=== PATIENT | male | born 1980 | race Caucasian/White ===

== ENCOUNTER 2023-04-20 18:02 | Inpatient (IN) | payer MEDICARE, BC, OTHER ==
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
[2023-04-20] MEDS ORDERED: NALOXONE 0.4 MG/ML 1 ML VIAL IV PRN (21:21)
[2023-04-20] MEDS ORDERED: IBUPROFEN 400 MG TAB PO PRN (21:21)
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
[2023-04-20] MEDS: SODIUM CHLORIDE 0.9% 1,000 ML IV SCH (22:19)
[2023-04-20 23:03] LABS: T4, Free (Free Thyroxine) 0.96 ng/dL (0.78-2.19)
[2023-04-21 03:25] LABS: Appearance,Urine Clear (Clear); Bacteria,Urine Rare /hpf; Bilirubin,Urine Negative (Negative); Blood,Urine Large (Negative); Color,Urine Light Yellow; Glucose,Urine (UA) Negative (Negative); Ketones,Urine Negative (Negative); Leukocyte Esterase,Urine Small (Negative); Mucus,Urine Rare /hpf; Nitrite,Urine Negative (Negative); PH, Urine 7.5 (5.0-8.0); Protein,Urine 2+ (Negative); RBC,Urine >182 /hpf (0-5); Specific Gravity,Urine 1.014 (1.001-1.035); Urobilinogen,Urine <2.0 mg/dL (<2.0); WBC,Urine 28 /hpf (0-5)
[2023-04-21 07:01] LABS: Basophils % (A) 1 %; Eosinophils # (A) 0.2 k/uL (0-0.7); Eosinophils % (A) 3 %; HCT 41.2 % (39.0-53.0); Lymphocytes # (A) 1.8 k/uL (1.0-4.8); Lymphocytes % (A) 26 %; MCH 26.7 pg (25.0-35.0); MCHC 31.7 g/dL (31.0-37.0); MCV 84.3 fL (80.0-100.0); Mean Platelet Volume 7.5; Monocytes # (A) 0.3 k/uL (0-1.0); Monocytes % (A) 4 %; Neutrophils # (A) 4.4 k/uL (1.3-7.7); Neutrophils % (A) 64 %; Platelet Count 422 k/uL (150-450); RBC 4.88 m/uL (4.30-5.90); RDW 15.4 % (11.5-15.5); WBC 6.8 k/uL (3.8-10.6)
[2023-04-21 07:10] LABS: ALT 32 U/L (4-49); AST 21 U/L (17-59); African American GFR (CKD) >90 (>60 ml/min/1.73 sqM); Albumin 3.6 g/dL (3.5-5.0); Alkaline Phosphatase 133 U/L (38-126); Anion Gap 9 mmol/L; Blood Urea Nitrogen 18 mg/dL (9-20); Calcium 8.5 mg/dL (8.4-10.2); Carbon Dioxide 26 mmol/L (22-30); Chloride 105 mmol/L (98-107); Glucose 77 mg/dL (74-99); Magnesium 1.9 mg/dL (1.6-2.3); Non-African American GFR(CKD) >90 (>60 ml/min/1.73 sqM); Phosphorus 2.7 mg/dL (2.5-4.5); Sodium 140 mmol/L (137-145); Total Bilirubin 0.3 mg/dL (0.2-1.3); Total Protein 6.5 g/dL (6.3-8.2)
[2023-04-21] MEDS ORDERED: ALBUTEROL NEBULIZED 2.5 MG/3 ML INHALATION PRN (09:23)
[2023-04-21] MEDS ORDERED: bisacodyL 10 MG SUPP RECTAL PRN (09:23)
--- NOTE | 2023-04-21 10:06 | XR ---
EXAMINATION TYPE: XR chest 2V DATE OF EXAM: 04/21/2023 COMPARISON: 12/01/2021 INDICATION: Hypothermia TECHNIQUE: Frontal and lateral views of the chest are obtained. Lateral view has poor inspiration an d is essentially nondiagnostic. FINDINGS: The heart size is normal. The pulmonary vasculature is normal. The lungs are clear. BB may be in the soft tissues and lateral chest IMPRESSION: 1. No acute pulmonary process.
[2023-04-21] MEDS: OXcarbazepine 300MG/5ML SUSP 15,000 MG/250 ML BOTTLE PEG/G-TUBE SCH ×3 (10:21→21:06)
[2023-04-21] MEDS: ASPIRIN 81 MG PEG/G-TUBE SCH (10:21)
[2023-04-21] MEDS ORDERED: ZINC OXIDE PASTE (Z-GUARD) 1 APPLIC TOPICAL PRN (12:07)
[2023-04-21] MEDS ORDERED: [UNRECOGNIZED DRUG - OTHER] TOPICAL SCH (13:00)
[2023-04-21] MEDS: lamoTRIgine 100 MG TAB PEG/G-TUBE SCH ×2 (13:46→21:05)
[2023-04-21] MEDS: busPIRone HCl 10 MG TAB PEG/G-TUBE SCH ×2 (13:46→21:05)
[2023-04-21] MEDS: clonazePAM 0.5 MG TAB PEG/G-TUBE SCH (13:46)
[2023-04-21] MEDS: HEPARIN SODIUM,PORCINE 5,000 UNIT/ML 1 ML VIAL SQ SCH ×2 (13:50→21:05)
[2023-04-21] MEDS: SODIUM CHLORIDE 0.9% 1,000 ML IV SCH ×2 (13:51→23:25)
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
--- NOTE | 2023-04-21 15:44 | XR ---
EXAMINATION TYPE: XR KUB DATE OF EXAM: 04/21/2023 COMPARISON: None available INDICATION: Renal stones TECHNIQUE: Single view abdomen FINDINGS: There is a normal bowel gas pattern. Psoas margins are normal. No organomegaly is present. Bilateral ureteral stones are present. There is a 0.8 cm calcification next to the pigtail of the rig ht renal pelvic ureteral stent. Multiple calcifications overlying the left kidney measuring 1.2, 0.9, and 0.5 cm IMPRESSION: 1. Bilateral renal stones
[2023-04-21] MEDS ORDERED: NON FORMULARY DRUG (Liquacel 30 ML) PEG/G-TUBE SCH (17:00)
[2023-04-21] MEDS: TAMSULOSIN 0.4 MG CAP.ER.24H PO SCH (21:05)
[2023-04-21] MEDS: clonazePAM 1 MG TAB PO SCH (21:05)
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
[2023-04-22] MEDS: amLODIPine 10 MG TAB PEG/G-TUBE SCH (04:41)
[2023-04-22] MEDS: clonazePAM 1 MG TAB PO SCH ×2 (04:41→21:01)
[2023-04-22] MEDS: lamoTRIgine 100 MG TAB PEG/G-TUBE SCH ×3 (04:41→21:01)
[2023-04-22] MEDS: OXcarbazepine 300MG/5ML SUSP 15,000 MG/250 ML BOTTLE PEG/G-TUBE SCH ×3 (04:42→21:01)
[2023-04-22] MEDS: lamoTRIgine 25 MG TAB PEG/G-TUBE SCH (04:42)
[2023-04-22] MEDS ORDERED: NON FORMULARY DRUG (Cranberry Fruit [Cranberry] 465 MG Capsule) PEG/G-TUBE SCH (05:00)
[2023-04-22] MEDS: polyethylene glycoL 3350 17 GM POWD.PACK PO SCH (07:09)
[2023-04-22] MEDS: HEPARIN SODIUM,PORCINE 5,000 UNIT/ML 1 ML VIAL SQ SCH ×2 (07:09→21:01)
[2023-04-22] MEDS: ASPIRIN 81 MG PEG/G-TUBE SCH (07:09)
[2023-04-22 08:44] LABS: Basophils # (A) 0.05 X 10*3/uL (0.00-0.10); Basophils % (A) 0.6 %; Eosinophils # (A) 0.19 X 10*3/uL (0.04-0.35); Eosinophils % (A) 2.4 %; HCT 40.5 % (39.6-50.0); Lymphocytes # (A) 2.18 X 10*3/uL (0.90-5.00); Lymphocytes % (A) 27.8 %; MCH 26.9 pg (27.0-32.0); MCHC 32.1 g/dL (32.0-37.0); MCV 83.7 FL (80.0-97.0); Mean Platelet Volume 9.9 FL (9.5-12.2); Monocytes % (A) 6.4 %; NRBC Per 100 WBC 0 X 10*3/uL (0.00-0.01); Neutrophils # (A) 4.87 X 10*3/uL (1.80-7.70); Neutrophils % (A) 62.3 %; Platelet Count 433 X 10*3/uL (140-440); RBC 4.84 X 10*6/uL (4.40-5.60); RDW 15.5 % (11.5-14.5); WBC 7.83 X 10*3/uL (4.50-10.00)
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
[2023-04-22 11:01] LABS: Blood Urea Nitrogen 12.4 mg/dL (9.0-27.0); Calcium 8.9 mg/dL (8.7-10.3); Carbon Dioxide 24.7 mmol/L (21.6-31.8); Chloride 106 mmol/L (96-109); Glucose 78 mg/dL (70-110); Potassium 4.2 mmol/L (3.5-5.5); Sodium 141 mmol/L (135-145)
[2023-04-22] MEDS: busPIRone HCl 10 MG TAB PEG/G-TUBE SCH ×2 (12:51→21:01)
[2023-04-22] MEDS: clonazePAM 0.5 MG TAB PEG/G-TUBE SCH (12:51)
[2023-04-22] MEDS: METOPROLOL TARTRATE 12.5 MG TAB PO SCH ×2 (15:32→21:01)
[2023-04-22] MEDS: SODIUM CHLORIDE 0.9% 1,000 ML IV SCH (16:35)
[2023-04-22] MEDS: TAMSULOSIN 0.4 MG CAP.ER.24H PO SCH (21:01)
[2023-04-23] MEDS: clonazePAM 1 MG TAB PO SCH ×2 (04:27→22:18)
[2023-04-23] MEDS: amLODIPine 10 MG TAB PEG/G-TUBE SCH (04:27)
[2023-04-23] MEDS: lamoTRIgine 100 MG TAB PEG/G-TUBE SCH ×3 (04:27→22:19)
[2023-04-23] MEDS: lamoTRIgine 25 MG TAB PEG/G-TUBE SCH (04:27)
[2023-04-23] MEDS: OXcarbazepine 300MG/5ML SUSP 15,000 MG/250 ML BOTTLE PEG/G-TUBE SCH ×3 (04:29→22:19)
[2023-04-23] MEDS: polyethylene glycoL 3350 17 GM POWD.PACK PO SCH (08:37)
[2023-04-23] MEDS: HEPARIN SODIUM,PORCINE 5,000 UNIT/ML 1 ML VIAL SQ SCH ×2 (08:37→22:19)
[2023-04-23] MEDS: METOPROLOL TARTRATE 12.5 MG TAB PO SCH ×2 (08:37→22:18)
[2023-04-23] MEDS: ASPIRIN 81 MG PEG/G-TUBE SCH (08:37)
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
[2023-04-23 09:09] LABS: Blood Urea Nitrogen 9.5 mg/dL (9.0-27.0); Calcium 9.7 mg/dL (8.7-10.3); Carbon Dioxide 25.8 mmol/L (21.6-31.8); Chloride 106 mmol/L (96-109); Glucose 80 mg/dL (70-110); Potassium 4.5 mmol/L (3.5-5.5); Sodium 143 mmol/L (135-145)
[2023-04-23 09:24] LABS: Basophils # (A) 0.04 X 10*3/uL (0.00-0.10); Basophils % (A) 0.6 %; Eosinophils # (A) 0.32 X 10*3/uL (0.04-0.35); Eosinophils % (A) 4.6 %; HCT 44.1 % (39.6-50.0); Lymphocytes # (A) 1.76 X 10*3/uL (0.90-5.00); Lymphocytes % (A) 25.2 %; MCH 26.7 pg (27.0-32.0); MCHC 31.7 g/dL (32.0-37.0); Mean Platelet Volume 9.8 FL (9.5-12.2); Monocytes # (A) 0.52 X 10*3/uL (0.20-1.00); Monocytes % (A) 7.4 %; NRBC Per 100 WBC 0 X 10*3/uL (0.00-0.01); Neutrophils # (A) 4.32 X 10*3/uL (1.80-7.70); Neutrophils % (A) 61.9 %; Platelet Count 415 X 10*3/uL (140-440); RBC 5.25 X 10*6/uL (4.40-5.60); RDW 15.9 % (11.5-14.5); WBC 6.98 X 10*3/uL (4.50-10.00)
[2023-04-23] MEDS: clonazePAM 0.5 MG TAB PEG/G-TUBE SCH (12:56)
[2023-04-23] MEDS: busPIRone HCl 10 MG TAB PEG/G-TUBE SCH ×2 (12:56→22:18)
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
--- NOTE | 2023-04-23 13:49 | P.PN ---
Progress Note - Text Progress Note Date: 04/23/23 patient tenatively scheduled for a right ureteroscopy with laser lithotirpsy , thursday04/27/23
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
[2023-04-23] MEDS: TAMSULOSIN 0.4 MG CAP.ER.24H PO SCH (22:19)
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
[2023-04-24] MEDS: lamoTRIgine 100 MG TAB PEG/G-TUBE SCH ×3 (04:58→22:19)
[2023-04-24] MEDS: amLODIPine 10 MG TAB PEG/G-TUBE SCH (04:58)
[2023-04-24] MEDS: clonazePAM 1 MG TAB PO SCH ×2 (04:58→22:19)
[2023-04-24] MEDS: OXcarbazepine 300MG/5ML SUSP 15,000 MG/250 ML BOTTLE PEG/G-TUBE SCH ×3 (04:58→22:20)
[2023-04-24] MEDS: lamoTRIgine 25 MG TAB PEG/G-TUBE SCH (05:04)
[2023-04-24] MEDS: polyethylene glycoL 3350 17 GM POWD.PACK PO SCH (08:50)
[2023-04-24] MEDS: HEPARIN SODIUM,PORCINE 5,000 UNIT/ML 1 ML VIAL SQ SCH ×2 (08:50→22:19)
[2023-04-24] MEDS: METOPROLOL TARTRATE 12.5 MG TAB PO SCH ×2 (08:51→22:19)
[2023-04-24] MEDS: ASPIRIN 81 MG PEG/G-TUBE SCH (08:51)
[2023-04-24] MEDS: clonazePAM 0.5 MG TAB PEG/G-TUBE SCH (14:19)
[2023-04-24] MEDS: busPIRone HCl 10 MG TAB PEG/G-TUBE SCH ×2 (14:19→22:19)
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
[2023-04-24] MEDS: TAMSULOSIN 0.4 MG CAP.ER.24H PO SCH (22:18)
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
[2023-04-25] MEDS: amLODIPine 10 MG TAB PEG/G-TUBE SCH (05:20)
[2023-04-25] MEDS: lamoTRIgine 100 MG TAB PEG/G-TUBE SCH ×3 (05:20→21:41)
[2023-04-25] MEDS: lamoTRIgine 25 MG TAB PEG/G-TUBE SCH (05:20)
[2023-04-25] MEDS: clonazePAM 1 MG TAB PO SCH ×2 (05:20→21:41)
[2023-04-25] MEDS: OXcarbazepine 300MG/5ML SUSP 15,000 MG/250 ML BOTTLE PEG/G-TUBE SCH ×3 (05:21→21:41)
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
[2023-04-25] MEDS: ASPIRIN 81 MG PEG/G-TUBE SCH (08:41)
[2023-04-25] MEDS: METOPROLOL TARTRATE 12.5 MG TAB PO SCH ×2 (08:45→21:41)
[2023-04-25] MEDS: polyethylene glycoL 3350 17 GM POWD.PACK PO SCH (08:46)
[2023-04-25] MEDS: HEPARIN SODIUM,PORCINE 5,000 UNIT/ML 1 ML VIAL SQ SCH ×2 (08:47→21:42)
[2023-04-25] MEDS: clonazePAM 0.5 MG TAB PEG/G-TUBE SCH (13:18)
[2023-04-25] MEDS: busPIRone HCl 10 MG TAB PEG/G-TUBE SCH ×2 (13:19→21:41)
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
[2023-04-25] MEDS: TAMSULOSIN 0.4 MG CAP.ER.24H PO SCH (21:41)
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
[2023-04-26] MEDS: clonazePAM 1 MG TAB PO SCH ×2 (04:42→20:48)
[2023-04-26] MEDS: lamoTRIgine 25 MG TAB PEG/G-TUBE SCH (04:42)
[2023-04-26] MEDS: amLODIPine 10 MG TAB PEG/G-TUBE SCH (04:42)
[2023-04-26] MEDS: lamoTRIgine 100 MG TAB PEG/G-TUBE SCH ×3 (04:42→20:48)
[2023-04-26] MEDS: OXcarbazepine 300MG/5ML SUSP 15,000 MG/250 ML BOTTLE PEG/G-TUBE SCH ×3 (04:43→20:48)
[2023-04-26] MEDS ORDERED: HYDROmorphone 0.5 MG/0.5 ML SYRINGE IVP PRN (09:24)
[2023-04-26] MEDS ORDERED: ONDANSETRON 4 MG/2 ML VIAL IVP ONE (09:24)
[2023-04-26] MEDS ORDERED: DEXAMETHASONE SOD PHOSPHATE 4 MG/ML 1 ML VIAL IV ONE (09:24)
[2023-04-26] MEDS: polyethylene glycoL 3350 17 GM POWD.PACK PO SCH (10:05)
[2023-04-26] MEDS: METOPROLOL TARTRATE 12.5 MG TAB PO SCH ×2 (10:05→20:48)
[2023-04-26] MEDS: HEPARIN SODIUM,PORCINE 5,000 UNIT/ML 1 ML VIAL SQ SCH ×2 (10:05→20:48)
[2023-04-26] MEDS: ASPIRIN 81 MG PEG/G-TUBE SCH (10:05)
[2023-04-26] MEDS: LACTATED RINGERS 1,000 ML IV SCH (10:06)
--- NOTE | 2023-04-26 10:40 | P.PN ---
Subjective Progress Note Date: 04/26/23 The patient is in the hospital with hypothermia. This is resolved. He has bilateral ureteral catheters with stones placed at [facility] last month. He will undergo a right ureteroscopy, laser lithotripsy and removal of the right stent tomorrow. He may need a percutaneous nephrostolithotomy for the left. I will determine that and later date. Objective - Vital Signs Vital signs: Vital Signs Temp 97.7 F 04/26/23 07:00 Pulse 77 04/26/23 07:00 Resp 17 04/26/23 07:00 BP 114/77 04/26/23 07:00 Pulse Ox 96 04/26/23 07:00 FiO2 Intake & Output 04/25/23 04/26/23 04/26/23 18:59 06:59 18:59 Output Total 2 750 Balance -2 -750 Output: Urine 2 750 Other: Voiding Method Diaper - Labs CBC & Chem 7: 04/23/23 05:42 04/23/23 05:42 Labs: Microbiology - Last 24 Hours (Table) 04/22/23 14:22 Blood Culture - Preliminary Blood
[2023-04-26] MEDS: busPIRone HCl 10 MG TAB PEG/G-TUBE SCH ×2 (14:41→20:49)
[2023-04-26] MEDS: clonazePAM 0.5 MG TAB PEG/G-TUBE SCH (14:41)
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
[2023-04-26] MEDS: TAMSULOSIN 0.4 MG CAP.ER.24H PO SCH (20:48)
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
[2023-04-27] MEDS ORDERED: ERGOCALCIFEROL 1,250 MCG (50,000 IU) CAPSULE PEG/G-TUBE SCH (05:00)
[2023-04-27] MEDS: lamoTRIgine 100 MG TAB PEG/G-TUBE SCH ×3 (05:40→22:39)
[2023-04-27] MEDS: lamoTRIgine 25 MG TAB PEG/G-TUBE SCH (05:40)
[2023-04-27] MEDS: clonazePAM 1 MG TAB PO SCH ×2 (05:40→22:39)
[2023-04-27] MEDS: amLODIPine 10 MG TAB PEG/G-TUBE SCH (05:40)
[2023-04-27] MEDS: OXcarbazepine 300MG/5ML SUSP 15,000 MG/250 ML BOTTLE PEG/G-TUBE SCH ×3 (05:41→22:39)
[2023-04-27] MEDS: ASPIRIN 81 MG PEG/G-TUBE SCH (07:41)
[2023-04-27] MEDS: HEPARIN SODIUM,PORCINE 5,000 UNIT/ML 1 ML VIAL SQ SCH ×2 (07:42→22:40)
[2023-04-27] MEDS: METOPROLOL TARTRATE 12.5 MG TAB PO SCH ×2 (10:11→22:39)
[2023-04-27] MEDS: polyethylene glycoL 3350 17 GM POWD.PACK PO SCH (10:11)
[2023-04-27] MEDS ORDERED: IV FLUID CONTINUATION 1,000 ML IV ONE (11:31)
[2023-04-27] MEDS ORDERED: ONDANSETRON 4 MG/2 ML VIAL ONE (11:47)
[2023-04-27] MEDS ORDERED: DEXAMETHASONE SOD PHOSPHATE 4 MG/ML 1 ML VIAL IVP ONE (11:53)
[2023-04-27] MEDS ORDERED: ONDANSETRON 4 MG/2 ML VIAL IVP ONE (11:54)
[2023-04-27] MEDS ORDERED: NEOSTIGMINE 1 MG/ML 10 ML VIAL ONE (12:48)
[2023-04-27] MEDS ORDERED: LIDOCAINE 1% INJ 10MG/ML (20 ML MDV) ONE (12:48)
[2023-04-27] MEDS ORDERED: PHENYLEPHRINE 10 MG/ML VIAL ONE (12:48)
[2023-04-27] MEDS ORDERED: SUGAMMADEX SODIUM 200 MG/2 ML SDV IV ONE (12:48)
[2023-04-27] MEDS ORDERED: ROCURONIUM 10 MG/ML (5 ML VIAL) IV ONE (12:48)
[2023-04-27] MEDS ORDERED: fentaNYL (PF) 50 MCG/ML 2 ML AMP ONE (12:48)
[2023-04-27] MEDS ORDERED: GLYCOPYRROLATE 0.2 MG/ML 2 ML VIAL ONE (12:48)
[2023-04-27] MEDS ORDERED: PROPOFOL 10 MG/ML 20 ML VIAL IV ONE (12:48)
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
--- NOTE | 2023-04-27 14:14 | FL ---
EXAMINATION TYPE: FL guidance operating room DATE OF EXAM: 04/27/2023 Comparison: None Clinical History: 42-year-old male Cysto rt side kidney stone Findings: CYSTO RT SIDE KIDNEY STONE. FL 5 SEC. DAP 0.788 Gycm2. 3 images provided. Impression: Fluoroscopy for urology procedure as above.
[2023-04-27] MEDS ORDERED: LACTATED RINGERS 1,000 ML IV ONE (14:21)
[2023-04-27] MEDS: LACTATED RINGERS 1,000 ML IV SCH (15:06)
[2023-04-27] MEDS: busPIRone HCl 10 MG TAB PEG/G-TUBE SCH ×2 (15:06→22:39)
[2023-04-27] MEDS: clonazePAM 0.5 MG TAB PEG/G-TUBE SCH (15:07)
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
[2023-04-28] MEDS: TAMSULOSIN 0.4 MG CAP.ER.24H PO SCH (01:48)
[2023-04-28] MEDS: lamoTRIgine 100 MG TAB PEG/G-TUBE SCH ×2 (05:31→14:44)
[2023-04-28] MEDS: amLODIPine 10 MG TAB PEG/G-TUBE SCH (05:31)
[2023-04-28] MEDS: lamoTRIgine 25 MG TAB PEG/G-TUBE SCH (05:31)
[2023-04-28] MEDS: OXcarbazepine 300MG/5ML SUSP 15,000 MG/250 ML BOTTLE PEG/G-TUBE SCH ×2 (05:31→14:44)
[2023-04-28] MEDS: clonazePAM 1 MG TAB PO SCH (05:31)
[2023-04-28 08:16] VITALS: BMI 28.5
--- NOTE | 2023-04-28 09:08 | CT ---
EXAMINATION TYPE: CT abdomen pelvis wo con DATE OF EXAM: 04/28/2023 COMPARISON: 03/16/2014 HISTORY: 42-year-old male kidney stones CT DLP: 1395.3 mGycm. Automated exposure control for dose reduction was used. TECHNIQUE: Contiguous axial scanning of the abdomen and pelvis without IV contrast. Coronal and sagit juve reconstructions performed. FINDINGS: Heart normal size without pericardial effusion. Prominent bandlike areas of opacity at the left base, probably areas of atelectasis. Asymmetric elevation right hemidiaphragm remains. No pleural effusion . The right hepatic dome is excluded from view due to the elevated hemidiaphragm. If concern for diap hragmatic paralysis, a fluoroscopic sniff test could be performed. A PEG tube is present. Noncontrast appearance of the liver, gallbladder, adrenal glands, spleen, and pancreas within normal limits. Rounded soft tissue density within the medial aspect of the right kidney measuring up to 4.0 cm is in determinate and clear of this represents an underlying mass, proteinaceous/hemorrhagic cyst, or lobul ated renal parenchyma. Right kidney slightly malrotated. A couple nonobstructive calculi measure up t o 8 mm. There is right hydroureter with some dependent stones in the distal right ureter measuring up to 5 mm. A left ureteral stent is present with residual mild fullness of the renal collecting system. Nonobstr uctive left renal calculi are present. Approximately 4 stones are present, largest measuring up to 1. 3 cm. There is also a 4 mm stone along the distal left ureter adjacent to the stent. Prominent distention of the urinary bladder. Air within the bladder lumen likely relating to instrume ntation. Clinically correlate. Dependent calculi within the bladder lumen measuring 6 mm and 3 mm. Mild prostatomegaly of 5.0 cm wide. No dilated small bowel, free fluid, or free air. Scattered moderate stool burden. No pericolonic infl ammatory change. Normal appendix. No abnormal fluid collection in the pelvis or pelvic lymphadenopathy. Bones: Suspected old healed sacral decubitus ulcer overlying the right ischial tuberosity with chroni c soft tissue thickening and calcification. Bones: Suspect old healed fracture deformity left femoral neck. Lumbarized S1. Facet arthropathy lowe r lumbar spine. Mild disc bulge L5-S1. IMPRESSION: 1. Left ureteral stent in place. There is residual mild fullness of the left renal collecting system . A 4 mm stone is located within the distal left ureter adjacent to the stent. Additional left renal calculi measuring up to 1.3 cm. 2. Slightly malrotated right kidney. There is rounded fullness within the medial aspect of the right kidney measuring up to 4.0 cm. Unclear if this represents an underlying mass, proteinaceous/hemorrha gic cyst, or lobulated renal parenchyma. Recommend follow-up contrast-enhanced CT or MRI to exclude a n underlying mass when patient able. 3. Right renal calculi measuring up to 8 mm. There is right hydroureter with a small 5 mm stone in t he distal right ureter that does not appear to be obstructive as the ureter caliber is larger. 4. Air within the bladder lumen probably relating to instrumentation. Tiny bladder calculi measure u p to 6 mm. 5. Mild prostatomegaly of 5.0 cm wide.
[2023-04-28] MEDS: METOPROLOL TARTRATE 12.5 MG TAB PO SCH (10:35)
[2023-04-28] MEDS: polyethylene glycoL 3350 17 GM POWD.PACK PO SCH (10:35)
[2023-04-28] MEDS: ASPIRIN 81 MG PEG/G-TUBE SCH (10:36)
[2023-04-28] MEDS: HEPARIN SODIUM,PORCINE 5,000 UNIT/ML 1 ML VIAL SQ SCH (10:36)
[2023-04-28 10:49] LABS: Basophils # (A) 0.02 X 10*3/uL (0.00-0.10); Basophils % (A) 0.2 %; Eosinophils # (A) 0.04 X 10*3/uL (0.04-0.35); Eosinophils % (A) 0.4 %; HGB 13.4 g/dL (13.0-17.0); Lymphocytes # (A) 1.43 X 10*3/uL (0.90-5.00); MCH 26.7 pg (27.0-32.0); MCHC 31.2 g/dL (32.0-37.0); MCV 85.8 FL (80.0-97.0); Mean Platelet Volume 9.8 FL (9.5-12.2); Monocytes # (A) 0.45 X 10*3/uL (0.20-1.00); NRBC Per 100 WBC 0 X 10*3/uL (0.00-0.01); Neutrophils # (A) 6.96 X 10*3/uL (1.80-7.70); Neutrophils % (A) 77.8 %; Platelet Count 266 X 10*3/uL (140-440); RBC 5.01 X 10*6/uL (4.40-5.60); RDW 16.4 % (11.5-14.5); WBC 8.95 X 10*3/uL (4.50-10.00)
[2023-04-28 12:04] LABS: Blood Urea Nitrogen 19.2 mg/dL (9.0-27.0); Calcium 9.1 mg/dL (8.7-10.3); Carbon Dioxide 23.6 mmol/L (21.6-31.8); Chloride 102 mmol/L (96-109); Glucose 89 mg/dL (70-110); Magnesium 1.9 mg/dL (1.5-2.4); Potassium 4.9 mmol/L (3.5-5.5); Sodium 138 mmol/L (135-145)
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
[2023-04-28] MEDS: busPIRone HCl 10 MG TAB PEG/G-TUBE SCH (14:44)
[2023-04-28] MEDS: clonazePAM 0.5 MG TAB PEG/G-TUBE SCH (14:44)
[2023-04-28] MEDS: LACTATED RINGERS 1,000 ML IV SCH (14:48)
[2023-04-28 14:58] VITALS: BP 97/69; PULSE 61; RESP 14; TEMP 97.6
--- NOTE | 2023-04-28 16:11 | P.PN ---
Subjective Progress Note Date: 04/28/23 Principal diagnosis: Renal calculi Yung underwent right ureteral stent removal yesterday, along with ureteroscopic removal of right distal ureteral calculi. A CT scan was obtained, showing the left ureteral stent to be in place. There is a right renal calculus, as well as several left renal calculi measuring up to 13 mm in size. A 4 mm left distal ureteral calculus was also seen. Yung is comfortable at this time. Objective - Vital Signs Vital signs: Vital Signs Temp 97.6 F 04/28/23 13:30 Pulse 61 04/28/23 13:30 Resp 14 04/28/23 13:30 BP 97/69 04/28/23 13:30 Pulse Ox 97 04/28/23 13:30 FiO2 Intake & Output 04/27/23 04/28/23 04/28/23 18:59 06:59 18:59 Intake Total 800 Balance 800 Weight 95.254 kg Intake: IV 800 Other: Voiding Method External Catheter External Catheter # Voids 1 - Constitutional General appearance: Present: average body habitus, no acute distress - Labs CBC & Chem 7: 04/28/23 06:51 04/28/23 06:51 Labs: Abnormal Lab Results - Last 24 Hours (Table) 04/28/23 04/28/23 Range/Units 06:51 06:51 MCH 26.7 L (27.0-32.0) pg MCHC 31.2 L (32.0-37.0) g/dL RDW 16.4 H (11.5-14.5) % Immature Gran # 0.05 H (0.00-0.04) X 10*3/uL Anion Gap 12.40 H (4.00-12.00) mmol/L Microbiology - Last 24 Hours (Table) 04/22/23 14:22 Blood Culture - Final Blood - Imaging and Cardiology CT scan - abdomen: report reviewed, image reviewed Assessment and Plan (1) Renal calculus, left Current Visit: No Status: Acute Code(s): N20.0 - CALCULUS OF KIDNEY SNOMED Code(s): 46311458 Plan: Yung is to be discharged today. Dr. Flannery will make arrangements to perform outpatient ureteroscopic surgery to remove Yung' left ureteral and renal calculi.
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
== END 2023-04-28 17:55 | DRG 698 ==
LOC: EEVIPCON 18:02 → EC 18:02 → 4SSUR 21:23 → OBSVTOIN 04-21 12:43
PROVIDERS: ADMIT Hospitalist; ATTEND Hospitalist
PROC: 0TC68ZZ Extirpation of Matter from Right Ureter, Via Natural or Artificial Opening Endoscopic (ICD-10-PCS; principal; 2023-04-27 12:30)
PROC: 0TP98DZ Removal of Intraluminal Device from Ureter, Via Natural or Artificial Opening Endoscopic (ICD-10-PCS; principal; 2023-04-27 12:30)
DX: T83.511A Infection and inflammatory reaction due to indwelling urethral catheter, initial encounter (principal); A41.89 Other specified sepsis; Z43.1 Encounter for attention to gastrostomy; G81.91 Hemiplegia, unspecified affecting right dominant side; N18.4 Chronic kidney disease, stage 4 (severe); N13.6 Pyonephrosis; N39.0 Urinary tract infection, site not specified; I13.10 Hypertensive heart and chronic kidney disease without heart failure, with stage 1 through stage 4 chronic kidney disease, or unspecified chronic kidney disease; G40.909 Epilepsy, unspecified, not intractable, without status epilepticus; I48.91 Unspecified atrial fibrillation; Z66 Do not resuscitate; Z28.310 Unvaccinated for COVID-19; F32.A Depression, unspecified; F41.9 Anxiety disorder, unspecified; K21.9 Gastro-esophageal reflux disease without esophagitis; K59.00 Constipation, unspecified; I25.10 Atherosclerotic heart disease of native coronary artery without angina pectoris; R68.0 Hypothermia, not associated with low environmental temperature; Z79.82 Long term (current) use of aspirin; Z79.899 Other long term (current) drug therapy; Z87.01 Personal history of pneumonia (recurrent); Z87.442 Personal history of urinary calculi; Z87.820 Personal history of traumatic brain injury; Z98.2 Presence of cerebrospinal fluid drainage device; Z88.6 Allergy status to analgesic agent; Z88.8 Allergy status to other drugs, medicaments and biological substances; Y84.6 Urinary catheterization as the cause of abnormal reaction of the patient, or of later complication, without mention of misadventure at the time of the procedure; Y92.129 Unspecified place in nursing home as the place of occurrence of the external cause
CPT/HCPCS: 51702; 70450; 71046; 74018; 74176; 80048; 80053; 81001; 82365; 83735; 84100; 84439; 84443; 84481; 85025; 87040; 99285

== ENCOUNTER 2023-05-06 07:00 | Day surgery (SDC) | payer MEDICARE, BC, OTHER ==
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
[~2023-05-06 07:00] MED LIST: AMPICILLIN 1,000 MG in SODIUM CHLORIDE 0.9% 50 ML IVPB PRN; DEXAMETHASONE SOD PHOSPHATE 4 MG/ML 1 ML VIAL IV ONE; GENTAMICIN 120 MG in SODIUM CHLORIDE 0.9% 100 ML IVPB PRN; HYDROmorphone 0.5 MG/0.5 ML SYRINGE IVP PRN; LACTATED RINGERS 1,000 ML IV SCH; ONDANSETRON 4 MG/2 ML VIAL IVP ONE
--- NOTE | 2023-05-06 09:46 | XR ---
EXAMINATION TYPE: XR KUB DATE OF EXAM: 05/06/2023 Comparison: 04/21/2023 Clinical History: 42-year-old male KIDNEY STONES Findings: Left ureteral stent. De La Vega catheter. Right ureteral stent removed in the interval. Right-sided [employer] liban nt catheter noted. PEG tube present. A couple calcifications left mid abdomen measuring up to 5 mm de creased in size from 1.1 cm, previously. Suspect a small 5 mm calcification right mid abdomen as well . Scattered moderate stool in the right side of the abdomen. Nonobstructive bowel gas pattern. Calcif ications below the right ischial tuberosity suggesting chronic hamstrings origin tendinopathy. Possib le old healed fracture deformity subtrochanteric proximal right femur. Impression: 1. Left ureteral stent. Left-sided renal calculi are smaller measuring up to 5 mm now versus 1.1 cm, previously. 2. Right ureteral stent removed. There may be a 5 mm right renal calculus present. 3. De La Vega catheter.
[2023-05-06] MEDS ORDERED: PROPOFOL 10 MG/ML 20 ML VIAL IV ONE (10:11)
[2023-05-06] MEDS ORDERED: ROCURONIUM 10 MG/ML (5 ML VIAL) IV ONE (10:11)
[2023-05-06] MEDS ORDERED: GLYCOPYRROLATE 0.2 MG/ML 2 ML VIAL ONE (10:11)
[2023-05-06] MEDS ORDERED: LIDOCAINE 1% INJ 10MG/ML (20 ML MDV) ONE (10:11)
[2023-05-06] MEDS ORDERED: PHENYLEPHRINE-0.9% NACL SYG 1,000 MCG/10 ML SYRINGE ONE (10:11)
[2023-05-06] MEDS ORDERED: NEOSTIGMINE 1 MG/ML 10 ML VIAL ONE (10:11)
--- NOTE | 2023-05-06 11:47 | P.OP ---
Date of Procedure: 05/06/23 Preoperative Diagnosis: Left renal stones renal stones, status post stent placement for urinary tract infection with sepsis, Postoperative Diagnosis: Same Procedure(s) Performed: Cystoscopy, left ureteroscopy with laser lithotripsy and stone basketing removal double-J catheter left Anesthesia: SHANTIA Surgeon: Will Flannery Estimated Blood Loss (ml): 0 Pathology: other (Stone) Condition: stable Disposition: PACU Indications for Procedure: Patient is 42. He is status post placement of bilateral double-J catheters for obstructing stones at [facility] in March. I recently did right ureteroscopy with laser lithotripsy and stent removal for the right side. He now comes for removal of stones on the left Description of Procedure: Patient brought to the operative suite. Given a general anesthetic. Placed lithotomy position with sterile prep and drape. Cystoscopy Foroblique lens and 21-St Lucian sheath identifies a normal urethra. The prostate is not obstructing. The double-J catheter in the left is identified and pulled to the urethral meatus. An 035 wires passed through the stent up into the kidney. Over the wires and passed [id number] reentry sheath. I then pass a flexible ureteroscope up into the kidney. He has 2 stones in the upper pole calyx and one in the lower pole calyx. 272 laser probe the stone fragments are broken into tiny pieces either to be passed or basketed. I basket the larger fragments and 7 and pathology. At the end of the procedure there no remaining significant fragments left in the kidney. I do a pullout ureteroscopy to make sure that no stones in the ureter and there are none. Scopes are removed. I introduced a 16-St Lucian De La Vega catheter into the bladder with clear urine return. The patient is awakened and returned recovery room good condition. He tolerated the procedure well be returned in the care home this afternoon and found the office in one week.
--- NOTE | 2023-05-06 11:52 | FL ---
EXAMINATION TYPE: FL guidance operating room Intraoperative/procedural fluoroscopic services were pro vided. Total fluoroscopy time is 10.2 seconds with a total of 3 submitted images to PACS. Please see the operative/procedural note for further details. DAP: 2.8231 Gycm2
[2023-05-06 12:02] VITALS: TEMP 96.8
[2023-05-06 13:17] VITALS: BP 110/73; PULSE 97; RESP 16
== END 2023-05-06 13:48 ==
LOC: OR 07:00
PROVIDERS: ATTEND Urology
DX: N20.0 Calculus of kidney (principal); Z96.0 Presence of urogenital implants; Z87.440 Personal history of urinary (tract) infections; Z86.19 Personal history of other infectious and parasitic diseases; G40.909 Epilepsy, unspecified, not intractable, without status epilepticus; K21.9 Gastro-esophageal reflux disease without esophagitis; I12.9 Hypertensive chronic kidney disease with stage 1 through stage 4 chronic kidney disease, or unspecified chronic kidney disease; N18.4 Chronic kidney disease, stage 4 (severe); Z98.2 Presence of cerebrospinal fluid drainage device; D64.9 Anemia, unspecified; Z87.820 Personal history of traumatic brain injury; Z79.82 Long term (current) use of aspirin; Z79.899 Other long term (current) drug therapy; Z88.8 Allergy status to other drugs, medicaments and biological substances; Z88.6 Allergy status to analgesic agent
CPT/HCPCS: 82365; 74018; 52353; C1769; J1100; J2710; J2405; J2001; J1580; J0290; J2704; J2371

== ENCOUNTER 2023-06-04 14:24 | Inpatient (IN) | payer MEDICARE, BC ==
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
[2023-06-04] MEDS ORDERED: NALOXONE 0.4 MG/ML 1 ML VIAL IV PRN (16:51)
[2023-06-04] MEDS: SODIUM CHLORIDE 0.9% 1,000 ML IV SCH (17:21)
[2023-06-04 17:45] LABS: Anisocytosis Slight; Basophils # (A) 0.1 k/uL (0-0.2); Basophils % (A) 1 %; Eosinophils # (A) 0.3 k/uL (0-0.7); Eosinophils % (A) 4 %; HCT 41.5 % (39.0-53.0); HGB 13.2 gm/dL (13.0-17.5); Hypochromasia Slight; Lymphocytes % (A) 24 %; MCH 26.9 pg (25.0-35.0); MCHC 31.8 g/dL (31.0-37.0); MCV 84.6 fL (80.0-100.0); Mean Platelet Volume 7.2; Monocytes # (A) 0.3 k/uL (0-1.0); Monocytes % (A) 4 %; Neutrophils # (A) 5.6 k/uL (1.3-7.7); Neutrophils % (A) 67 %; Platelet Count 280 k/uL (150-450); RBC 4.91 m/uL (4.30-5.90); RDW 16.4 % (11.5-15.5); WBC 8.4 k/uL (3.8-10.6)
[2023-06-04 18:04] LABS: ALT 23 U/L (4-49); AST 25 U/L (17-59); African American GFR (CKD) >90 (>60 ml/min/1.73 sqM); Albumin 3.6 g/dL (3.5-5.0); Alkaline Phosphatase 126 U/L (38-126); Anion Gap 2 mmol/L; Blood Urea Nitrogen 15 mg/dL (9-20); Calcium 9.3 mg/dL (8.4-10.2); Carbon Dioxide 32 mmol/L (22-30); Chloride 107 mmol/L (98-107); Glucose 79 mg/dL (74-99); Non-African American GFR(CKD) 81 (>60 ml/min/1.73 sqM); Potassium 4.9 mmol/L (3.5-5.1); Sodium 141 mmol/L (137-145); Total Bilirubin 0.4 mg/dL (0.2-1.3); Total Protein 6.6 g/dL (6.3-8.2)
--- NOTE | 2023-06-04 18:36 | XR ---
EXAMINATION TYPE: XR KUB DATE OF EXAM: 06/04/2023 5:45 PM CLINICAL HISTORY: PEG tube placement; patient injected with 50 mL Isovue-370 TECHNIQUE: Single supine KUB image of the abdomen is obtained. COMPARISON: None. FINDINGS/IMPRESSION: A catheter overlying the left upper quadrant is seen with tip superimposed over the left T12 rib. Radiographic contrast opacifies the ascending colon. No other radiographic contrast is seen on the im ages. Vertically oriented catheter is seen over the right upper and lower quadrants. Scattered gas is seen in non-distended small bowel loops. Gas and fecal material is seen in non-diste nded colon. Limitation of the study: Supine radiography cannot exclude pneumoperitoneum.
[2023-06-05] MEDS ORDERED: bisacodyL 10 MG SUPP RECTAL PRN (00:47)
[2023-06-05] MEDS ORDERED: ALBUTEROL NEBULIZED 2.5 MG/3 ML INHALATION PRN (00:47)
[2023-06-05] MEDS: lamoTRIgine 25 MG TAB PEG/G-TUBE SCH (05:50)
[2023-06-05] MEDS: TAMSULOSIN 0.4 MG CAP.ER.24H PO SCH (05:50)
[2023-06-05] MEDS: clonazePAM 1 MG TAB PEG/G-TUBE SCH (05:50)
[2023-06-05] MEDS: OXcarbazepine 300MG/5ML SUSP 15,000 MG/250 ML BOTTLE PEG/G-TUBE SCH (05:50)
[2023-06-05] MEDS: amLODIPine 10 MG TAB PEG/G-TUBE SCH (05:50)
[2023-06-05] MEDS: lamoTRIgine 100 MG TAB PEG/G-TUBE SCH (05:50)
[2023-06-05] MEDS ORDERED: NON FORMULARY DRUG (Cranberry Fruit [Cranberry] 465 MG Capsule) PEG/G-TUBE SCH (08:00)
[2023-06-05 08:35] LABS: Basophils # (A) 0.05 X 10*3/uL (0.00-0.10); Basophils % (A) 0.6 %; Eosinophils % (A) 2.6 %; HCT 42.7 % (39.6-50.0); HGB 13.5 g/dL (13.0-17.0); Lymphocytes % (A) 20.5 %; MCH 26.1 pg (27.0-32.0); MCHC 31.6 g/dL (32.0-37.0); MCV 82.4 FL (80.0-97.0); Mean Platelet Volume 9.6 FL (9.5-12.2); Monocytes # (A) 0.46 X 10*3/uL (0.20-1.00); Monocytes % (A) 5.9 %; NRBC Per 100 WBC 0 X 10*3/uL (0.00-0.01); Neutrophils # (A) 5.44 X 10*3/uL (1.80-7.70); Neutrophils % (A) 69.9 %; Platelet Count 342 X 10*3/uL (140-440); RBC 5.18 X 10*6/uL (4.40-5.60); RDW 16.8 % (11.5-14.5); WBC 7.79 X 10*3/uL (4.50-10.00)
[2023-06-05] MEDS: polyethylene glycoL 3350 17 GM POWD.PACK PEG/G-TUBE SCH (10:37)
[2023-06-05] MEDS: METOPROLOL TARTRATE 12.5 MG TAB PEG/G-TUBE SCH (10:38)
[2023-06-05 11:10] LABS: BUN/Creat Ratio 10.23 Ratio (12.00-20.00); Blood Urea Nitrogen 13.3 mg/dL (9.0-27.0); Calcium 9.8 mg/dL (8.7-10.3); Carbon Dioxide 28.3 mmol/L (21.6-31.8); Chloride 102 mmol/L (96-109); Glucose 80 mg/dL (70-110); Potassium 5.2 mmol/L (3.5-5.5); Sodium 141 mmol/L (135-145)
[2023-06-05] MEDS: busPIRone HCl 10 MG TAB PEG/G-TUBE SCH (13:44)
[2023-06-05] MEDS: clonazePAM 0.5 MG TAB PEG/G-TUBE SCH (13:44)
[2023-06-05] MEDS ORDERED: ZINC OXIDE PASTE (Z-GUARD) 1 APPLIC TOPICAL PRN (14:03)
[2023-06-05] MEDS: HEPARIN SODIUM,PORCINE 5,000 UNIT/ML 1 ML VIAL SQ SCH (15:35)
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
[2023-06-06] MEDS: SODIUM CHLORIDE 0.9% 1,000 ML IV SCH (01:05)
[2023-06-06 07:04] LABS: Appearance,Urine Cloudy (Clear); Bilirubin,Urine Negative (Negative); Blood,Urine Negative (Negative); Color,Urine Colorless; Glucose,Urine (UA) Negative (Negative); Ketones,Urine Negative (Negative); Leukocyte Esterase,Urine Large (Negative); Mucus,Urine Rare /hpf; Nitrite,Urine Negative (Negative); PH, Urine 6.5 (5.0-8.0); Protein,Urine Negative (Negative); RBC,Urine 7 /hpf (0-5); Specific Gravity,Urine 1.013 (1.001-1.035); Squamous Epithelial Cell,Urine <1 /hpf (0-4); Urobilinogen,Urine <2.0 mg/dL (<2.0); WBC,Urine 69 /hpf (0-5)
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
[2023-06-06 15:58] LABS: Lamotrigine (Lamictal) 6.9 ug/mL (2.0-15.0)
[2023-06-07 10:11] LABS: Anisocytosis Slight; HCT 39.8 % (39.0-53.0); HGB 12.9 gm/dL (13.0-17.5); Hypochromasia Slight; MCH 27.1 pg (25.0-35.0); MCHC 32.3 g/dL (31.0-37.0); MCV 83.9 fL (80.0-100.0); Mean Platelet Volume 7.2; Platelet Count 197 k/uL (150-450); RBC 4.75 m/uL (4.30-5.90); RDW 16.2 % (11.5-15.5); WBC 7.2 k/uL (3.8-10.6)
[2023-06-07 10:50] LABS: ALT 22 U/L (4-49); AST 26 U/L (17-59); African American GFR (CKD) >90 (>60 ml/min/1.73 sqM); Albumin 3.4 g/dL (3.5-5.0); Albumin/Globulin Ratio 1.1; Alkaline Phosphatase 119 U/L (38-126); Anion Gap 3 mmol/L; Blood Urea Nitrogen 9 mg/dL (9-20); Calcium 8.8 mg/dL (8.4-10.2); Carbon Dioxide 28 mmol/L (22-30); Chloride 106 mmol/L (98-107); Glucose 86 mg/dL (74-99); Non-African American GFR(CKD) >90 (>60 ml/min/1.73 sqM); Potassium 4.2 mmol/L (3.5-5.1); Sodium 137 mmol/L (137-145); Total Bilirubin 0.3 mg/dL (0.2-1.3); Total Protein 6.4 g/dL (6.3-8.2)
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
[2023-06-07 22:47] LABS: Appearance,Urine Cloudy (Clear); Bacteria,Urine Rare /hpf; Bilirubin,Urine Negative (Negative); Blood,Urine Negative (Negative); Budding Yeast,Urine Rare /hpf; Color,Urine Yellow; Glucose,Urine (UA) Negative (Negative); Hyaline Casts,Urine 1 /lpf (0-2); Ketones,Urine Negative (Negative); Leukocyte Esterase,Urine Large (Negative); Mucus,Urine Rare /hpf; Nitrite,Urine Negative (Negative); Protein,Urine Trace (Negative); RBC,Urine 8 /hpf (0-5); Specific Gravity,Urine 1.016 (1.001-1.035); Urobilinogen,Urine <2.0 mg/dL (<2.0); WBC,Urine 160 /hpf (0-5)
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
[2023-06-08] MEDS: PIPERACILLIN-TAZOBACTAM 3.375 GM in SODIUM CHLORIDE 0.9% 100 ML IVPB SCH (13:24)
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
[2023-06-08 15:55] LABS: Basophils # (A) 0.04 X 10*3/uL (0.00-0.10); Basophils % (A) 0.4 %; Eosinophils # (A) 0.28 X 10*3/uL (0.04-0.35); Eosinophils % (A) 3.1 %; HCT 41.5 % (39.6-50.0); HGB 13.2 g/dL (13.0-17.0); Lymphocytes % (A) 23.1 %; MCH 27.1 pg (27.0-32.0); MCHC 31.8 g/dL (32.0-37.0); MCV 85.2 FL (80.0-97.0); Mean Platelet Volume 10.3 FL (9.5-12.2); Monocytes % (A) 5.5 %; NRBC Per 100 WBC 0 X 10*3/uL (0.00-0.01); Neutrophils # (A) 6.14 X 10*3/uL (1.80-7.70); Neutrophils % (A) 67.4 %; Platelet Count 246 X 10*3/uL (140-440); RBC 4.87 X 10*6/uL (4.40-5.60); RDW 16.3 % (11.5-14.5); WBC 9.11 X 10*3/uL (4.50-10.00)
[2023-06-08 16:34] LABS: ALT 17 U/L (10-49); AST 16 U/L (14-35); Albumin 3.8 g/dL (3.8-4.9); Albumin/Globulin Ratio 1.31 Ratio (1.60-3.17); Alkaline Phosphatase 129 U/L (41-126); BUN/Creat Ratio 7.15 Ratio (12.00-20.00); Blood Urea Nitrogen 9.3 mg/dL (9.0-27.0); Calcium 9.2 mg/dL (8.7-10.3); Carbon Dioxide 22.7 mmol/L (21.6-31.8); Chloride 104 mmol/L (96-109); Globulin 2.9 g/dL (1.6-3.3); Glucose 127 mg/dL (70-110); Potassium 4.1 mmol/L (3.5-5.5); Sodium 140 mmol/L (135-145); Total Bilirubin <0.2 mg/dL (0.3-1.2); Total Protein 6.7 g/dL (6.2-8.2)
[2023-06-08 22:17] LABS: Glucose,Whole Blood 82 mg/dL (70-110)
[2023-06-08] MEDS: SODIUM CHLORIDE 0.9% 1,000 ML IV ONE (23:03)
[2023-06-09] LABS: Anisocytosis Slight; Basophils % (A) 1 %; Eosinophils # (A) 0.3 k/uL (0-0.7); Eosinophils % (A) 5 %; HCT 38.5 % (39.0-53.0); HGB 12.2 gm/dL (13.0-17.5); Hypochromasia Slight; Lymphocytes # (A) 1.9 k/uL (1.0-4.8); Lymphocytes % (A) 33 %; MCH 26.8 pg (25.0-35.0); MCHC 31.6 g/dL (31.0-37.0); Mean Platelet Volume 7.4; Monocytes # (A) 0.3 k/uL (0-1.0); Monocytes % (A) 5 %; Neutrophils # (A) 3.1 k/uL (1.3-7.7); Neutrophils % (A) 53 %; Platelet Count 199 k/uL (150-450); RBC 4.53 m/uL (4.30-5.90); RDW 16.3 % (11.5-15.5); WBC 5.8 k/uL (3.8-10.6)
[2023-06-09 00:39] LABS: Glucose,Whole Blood 79 mg/dL (70-110)
[2023-06-09] MEDS: SODIUM CHLORIDE 0.9% 1,000 ML IV ONE (02:19)
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
[2023-06-09] MEDS: SODIUM CHLORIDE 0.9% 1,000 ML IV SCH (04:42)
[2023-06-09] MEDS: SODIUM CHLORIDE 0.9% 500 ML 500 ML IV ONE (04:42)
[2023-06-09 08:27] LABS: Basophils # (A) 0.03 X 10*3/uL (0.00-0.10); Basophils % (A) 0.5 %; Eosinophils # (A) 0.36 X 10*3/uL (0.04-0.35); Eosinophils % (A) 5.7 %; HCT 36.7 % (39.6-50.0); HGB 11.6 g/dL (13.0-17.0); Lymphocytes # (A) 1.95 X 10*3/uL (0.90-5.00); Lymphocytes % (A) 30.9 %; MCHC 31.6 g/dL (32.0-37.0); MCV 85.3 FL (80.0-97.0); Mean Platelet Volume 10.1 FL (9.5-12.2); Monocytes % (A) 7.9 %; NRBC Per 100 WBC 0 X 10*3/uL (0.00-0.01); Neutrophils # (A) 3.45 X 10*3/uL (1.80-7.70); Neutrophils % (A) 54.5 %; Platelet Count 212 X 10*3/uL (140-440); RDW 16.2 % (11.5-14.5); WBC 6.32 X 10*3/uL (4.50-10.00)
[2023-06-09] MEDS: PANTOPRAZOLE 40 MG/10 ML VIAL IVP SCH (09:01)
[2023-06-09] MEDS: NOREPINEPHRINE 4 MG in SODIUM CHLORIDE 0.9% 250 ML IV SCH (09:05)
[2023-06-09 09:07] LABS: ALT 16 U/L (10-49); AST 15 U/L (14-35); Albumin 3.5 g/dL (3.8-4.9); Albumin/Globulin Ratio 1.46 Ratio (1.60-3.17); Alkaline Phosphatase 108 U/L (41-126); BUN/Creat Ratio 7.25 Ratio (12.00-20.00); Blood Urea Nitrogen 8.7 mg/dL (9.0-27.0); Calcium 8.4 mg/dL (8.7-10.3); Chloride 106 mmol/L (96-109); Globulin 2.4 g/dL (1.6-3.3); Glucose 63 mg/dL (70-110); Potassium 4.1 mmol/L (3.5-5.5); Sodium 141 mmol/L (135-145); Total Bilirubin <0.2 mg/dL (0.3-1.2); Total Protein 5.9 g/dL (6.2-8.2)
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
[2023-06-10 05:41] LABS: Anisocytosis Slight; Basophils % (A) 1 %; Eosinophils # (A) 0.3 k/uL (0-0.7); Eosinophils % (A) 5 %; HCT 36.6 % (39.0-53.0); HGB 11.6 gm/dL (13.0-17.5); Hypochromasia Slight; Lymphocytes # (A) 1.5 k/uL (1.0-4.8); Lymphocytes % (A) 23 %; MCH 26.8 pg (25.0-35.0); MCHC 31.7 g/dL (31.0-37.0); MCV 84.6 fL (80.0-100.0); Mean Platelet Volume 7.5; Monocytes # (A) 0.3 k/uL (0-1.0); Monocytes % (A) 5 %; Neutrophils # (A) 4.1 k/uL (1.3-7.7); Neutrophils % (A) 64 %; Platelet Count 192 k/uL (150-450); RBC 4.33 m/uL (4.30-5.90); RDW 16.5 % (11.5-15.5); WBC 6.4 k/uL (3.8-10.6)
[2023-06-10 06:00] LABS: African American GFR (CKD) >90 (>60 ml/min/1.73 sqM); Anion Gap 6 mmol/L; Blood Urea Nitrogen 6 mg/dL (9-20); Calcium 8.6 mg/dL (8.4-10.2); Carbon Dioxide 26 mmol/L (22-30); Chloride 108 mmol/L (98-107); Glucose 77 mg/dL (74-99); Non-African American GFR(CKD) 80 (>60 ml/min/1.73 sqM); Potassium 3.9 mmol/L (3.5-5.1); Sodium 140 mmol/L (137-145)
[2023-06-10] MEDS ORDERED: Potassium Replacement Protocol 1 EACH MISC MISCELLANE PRN (06:07)
[2023-06-10] MEDS: POTASSIUM BICARBONATE/CIT AC 20 MEQ TABLET.EFF NG-TUBE SCH (06:13)
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
[2023-06-11 08:41] LABS: BUN/Creat Ratio 4.33 Ratio (12.00-20.00); Blood Urea Nitrogen 5.2 mg/dL (9.0-27.0); Carbon Dioxide 25.6 mmol/L (21.6-31.8); Chloride 104 mmol/L (96-109); Glucose 80 mg/dL (70-110); Sodium 139 mmol/L (135-145)
[2023-06-11 08:42] LABS: Calcium 8.9 mg/dL (8.7-10.3); Magnesium 1.9 mg/dL (1.5-2.4)
[2023-06-11 08:49] LABS: Basophils # (A) 0.03 X 10*3/uL (0.00-0.10); Basophils % (A) 0.5 %; Eosinophils # (A) 0.35 X 10*3/uL (0.04-0.35); Eosinophils % (A) 5.8 %; HCT 37.7 % (39.6-50.0); Lymphocytes # (A) 1.45 X 10*3/uL (0.90-5.00); Lymphocytes % (A) 24.2 %; MCH 26.8 pg (27.0-32.0); MCHC 31.8 g/dL (32.0-37.0); MCV 84.3 FL (80.0-97.0); Mean Platelet Volume 10.1 FL (9.5-12.2); Monocytes # (A) 0.32 X 10*3/uL (0.20-1.00); Monocytes % (A) 5.3 %; NRBC Per 100 WBC 0 X 10*3/uL (0.00-0.01); Neutrophils # (A) 3.82 X 10*3/uL (1.80-7.70); Neutrophils % (A) 63.7 %; Platelet Count 229 X 10*3/uL (140-440); RBC 4.47 X 10*6/uL (4.40-5.60); RDW 16.5 % (11.5-14.5)
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
[2023-06-11 17:29] LABS: Amorphous Sediment,Urine Rare /hpf; Appearance,Urine Cloudy (Clear); Bilirubin,Urine Negative (Negative); Blood,Urine Trace (Negative); Color,Urine Colorless; Glucose,Urine (UA) Negative (Negative); Hyphae Yeast, Urine Rare /hpf; Ketones,Urine Negative (Negative); Leukocyte Esterase,Urine Large (Negative); Nitrite,Urine Negative (Negative); PH, Urine 6.5 (5.0-8.0); Protein,Urine Negative (Negative); RBC,Urine 9 /hpf (0-5); Specific Gravity,Urine 1.011 (1.001-1.035); Urobilinogen,Urine <2.0 mg/dL (<2.0); WBC,Urine 90 /hpf (0-5)
[2023-06-12 09:35] VITALS: RESP 16
[2023-06-12] MEDS: amLODIPine 10 MG TAB PO SCH (12:34)
[2023-06-12] MEDS: METOPROLOL TARTRATE 12.5 MG TAB PO STA (12:34)
[2023-06-12] MEDS: ASPIRIN 81 MG PEG/G-TUBE SCH (14:13)
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
[2023-06-12 15:22] VITALS: BP 135/91; PULSE 73; BMI 27.1
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
[2023-06-12 15:58] VITALS: TEMP 98.6
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
== END 2023-06-12 17:02 | DRG 698 ==
LOC: EC 14:24 → 4SSUR 16:54 → 2SICU 06-09 00:36 → 4SSUR 06-10 15:56
PROVIDERS: ADMIT Hospitalist; ATTEND Hospitalist
PROC: 3E033XZ Introduction of Vasopressor into Peripheral Vein, Percutaneous Approach (ICD-10-PCS; principal; 2023-06-04)
PROC: 0D20XUZ Change Feeding Device in Upper Intestinal Tract, External Approach (ICD-10-PCS; 2023-06-04)
DX: T83.511A Infection and inflammatory reaction due to indwelling urethral catheter, initial encounter (principal); A41.59 Other Gram-negative sepsis; J15.69 Pneumonia due to other Gram-negative bacteria; R65.21 Severe sepsis with septic shock; J69.0 Pneumonitis due to inhalation of food and vomit; J96.01 Acute respiratory failure with hypoxia; G81.91 Hemiplegia, unspecified affecting right dominant side; N18.4 Chronic kidney disease, stage 4 (severe); G93.40 Encephalopathy, unspecified; N39.0 Urinary tract infection, site not specified; E87.6 Hypokalemia; F32.A Depression, unspecified; F41.9 Anxiety disorder, unspecified; Z87.820 Personal history of traumatic brain injury; Z87.442 Personal history of urinary calculi; N31.9 Neuromuscular dysfunction of bladder, unspecified; Z82.49 Family history of ischemic heart disease and other diseases of the circulatory system; G40.909 Epilepsy, unspecified, not intractable, without status epilepticus; Z74.01 Bed confinement status; R68.0 Hypothermia, not associated with low environmental temperature; K21.9 Gastro-esophageal reflux disease without esophagitis; E11.22 Type 2 diabetes mellitus with diabetic chronic kidney disease; I12.9 Hypertensive chronic kidney disease with stage 1 through stage 4 chronic kidney disease, or unspecified chronic kidney disease; Z87.440 Personal history of urinary (tract) infections; Z87.01 Personal history of pneumonia (recurrent); Z79.899 Other long term (current) drug therapy; Z93.1 Gastrostomy status; Z98.2 Presence of cerebrospinal fluid drainage device; Z66 Do not resuscitate; E55.9 Vitamin D deficiency, unspecified; R29.6 Repeated falls; Z91.81 History of falling
CPT/HCPCS: 71045; 74018; 80048; 80053; 80175; 80183; 81001; 83605; 83735; 84145; 84484; 85025; 85027; 86140; 87040; 87086; 93005; 96360; 96361; 99285

== ENCOUNTER → 2023-07-23 | Outpatient (CLI) | payer MEDICARE, BC ==
--- NOTE | 2023-07-23 13:02 | CT ---
EXAMINATION TYPE: CT abdomen wo/w con DATE OF EXAM: 07/23/2023 COMPARISON: 04/28/2023 HISTORY: Calculus of kidney. Pt not able to raise arms, No oral CT DLP: 2363.5 mGycm CONTRAST: CT scan of the abdomen is performed without Oral Contrast and with IV Contrast, patient injected with 100 mL of Isovue 300. FINDINGS: LUNG BASES-: No visible nodule. No infiltrate. LIVER/GB: No calcified gallstones. No space occupying hepatic lesion. Biliary tree is of normal ca liber. PANCREAS: No inflammation. No distinct mass. SPLEEN: No splenic enlargement. No lesion seen. ADRENALS: No nodule. No thickening. KIDNEYS/BLADDER: Solid exophytic mass arising from the mid to upper pole right kidney measuring 5.2 x 3.0 cm. This felt to reflect renal cell carcinoma until proven otherwise. No evidence for extension into the inferior vena cava or right adrenal gland. No left renal mass appreciated. Bilateral nonobst ructing renal calculi. No hydronephrosis. BOWEL: Large bowel loops are of normal caliber. PEG tube is noted to be in place. LYMPH NODES: No greater than 1cm abdominal or pelvic lymph nodes are appreciated. AORTA: No significant abnormality. OSSEOUS STRUCTURES: No significant abnormality is seen. OTHER: No significant additional abnormality is seen. IMPRESSION: 1. Findings felt to reflect right-sided renal cell carcinoma until proven otherwise.
== END | disposition home or self-care (01) ==
LOC: RADCTMAIN 07:56
PROVIDERS: ATTEND Urology
DX: C64.1 Malignant neoplasm of right kidney, except renal pelvis (principal); N20.0 Calculus of kidney
CPT/HCPCS: 74170; Q9967

== ENCOUNTER 2023-10-14 06:15 | Inpatient (IN) | payer MEDICARE, BC ==
[2023-10-12 11:56] VITALS: BMI 28.5
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
[2023-10-14] MEDS: IV FLUID CONTINUATION 1,000 ML IV ONE (07:21)
[2023-10-14] MEDS: LACTATED RINGERS 1,000 ML IV SCH (07:22)
[2023-10-14 07:25] LABS: Anisocytosis Slight; Basophils # (A) 0.1 k/uL (0-0.2); Basophils % (A) 0 %; Eosinophils # (A) 0.3 k/uL (0-0.7); Eosinophils % (A) 1 %; HCT 38.7 % (39.0-53.0); HGB 11.9 gm/dL (13.0-17.5); Hypochromasia Slight; Lymphocytes # (A) 1.6 k/uL (1.0-4.8); Lymphocytes % (A) 5 %; MCH 24.9 pg (25.0-35.0); MCHC 30.7 g/dL (31.0-37.0); Mean Platelet Volume 7.4; Monocytes # (A) 1.3 k/uL (0-1.0); Monocytes % (A) 4 %; Neutrophils # (A) 27.2 k/uL (1.3-7.7); Neutrophils % (A) 88 %; Platelet Count 439 k/uL (150-450); RBC 4.78 m/uL (4.30-5.90); RDW 16.6 % (11.5-15.5); WBC 31.1 k/uL (3.8-10.6)
[2023-10-14] MEDS: ONDANSETRON 4 MG/2 ML VIAL IVP ONE (07:46)
[2023-10-14] MEDS: DEXAMETHASONE SOD PHOSPHATE 4 MG/ML 1 ML VIAL IV ONE (07:47)
[2023-10-14 08:19] LABS: Toxic Granulation Present
[2023-10-14] MEDS ORDERED: PHENYLEPHRINE-0.9% NACL SYG 1,000 MCG/10 ML SYRINGE ONE (09:01)
[2023-10-14] MEDS ORDERED: LIDOCAINE 1% INJ 10MG/ML (20 ML MDV) ONE (09:01)
[2023-10-14] MEDS ORDERED: ROCURONIUM 10 MG/ML (5 ML VIAL) IV ONE (09:01)
[2023-10-14] MEDS ORDERED: fentaNYL (PF) 50 MCG/ML 2 ML AMP ONE (09:01)
[2023-10-14] MEDS ORDERED: PHENYLEPHRINE 10 MG/ML VIAL ONE (09:01)
[2023-10-14] MEDS ORDERED: MIDAZOLAM 2 MG/2 ML VIAL ONE (09:01)
[2023-10-14] MEDS ORDERED: GLYCOPYRROLATE 0.2 MG/ML 2 ML VIAL ONE (09:01)
[2023-10-14] MEDS ORDERED: NEOSTIGMINE 1 MG/ML 10 ML VIAL ONE (09:01)
[2023-10-14] MEDS ORDERED: PROPOFOL 10 MG/ML 20 ML VIAL IV ONE (09:01)
[2023-10-14] MEDS ORDERED: ePHEDrine 50 MG/ML 1 ML VIAL ONE (09:01)
[2023-10-14] MEDS: LACTATED RINGERS 1,000 ML IV ONE ×2 (09:45→09:46)
[2023-10-14 10:40] LABS: African American GFR (CKD) >90 (>60 ml/min/1.73 sqM); Anion Gap 10 mmol/L; Blood Urea Nitrogen 18 mg/dL (9-20); Calcium 8.6 mg/dL (8.4-10.2); Carbon Dioxide 27 mmol/L (22-30); Chloride 95 mmol/L (98-107); Glucose 129 mg/dL (74-99); Non-African American GFR(CKD) >90 (>60 ml/min/1.73 sqM); Potassium 4.5 mmol/L (3.5-5.1); Sodium 132 mmol/L (137-145)
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
[2023-10-14] MEDS: HYDROmorphone 0.5 MG/0.5 ML SYRINGE IVP PRN (12:51)
[2023-10-14 12:56] LABS: Anisocytosis Slight; HCT 35.9 % (39.0-53.0); HGB 11.1 gm/dL (13.0-17.5); Hypochromasia Slight; MCH 24.6 pg (25.0-35.0); MCHC 30.8 g/dL (31.0-37.0); MCV 79.8 fL (80.0-100.0); Mean Platelet Volume 8.5; Microcytosis Slight; Platelet Count 546 k/uL (150-450); RDW 16.4 % (11.5-15.5)
[2023-10-14] MEDS ORDERED: MULTIVITAMIN PEG/G-TUBE SCH (13:00)
[2023-10-14] MEDS: DEXTROSE 5%-0.45% NACL 1,000 ML IV SCH (15:32)
[2023-10-14] MEDS: lamoTRIgine 100 MG TAB PEG/G-TUBE SCH (15:32)
[2023-10-14] MEDS: busPIRone HCl 10 MG TAB PEG/G-TUBE SCH (15:32)
[2023-10-14] MEDS: clonazePAM 0.5 MG TAB PEG/G-TUBE SCH (15:33)
[2023-10-14] MEDS: OXcarbazepine 300MG/5ML SUSP 15,000 MG/250 ML BOTTLE PEG/G-TUBE SCH (15:48)
[2023-10-14] MEDS: MORPHINE SULFATE 2 MG/ML SYRINGE IV PRN (15:51)
[2023-10-14] MEDS ORDERED: WATER PEG/G-TUBE SCH (16:00)
[2023-10-14] MEDS: METOPROLOL TARTRATE 12.5 MG TAB PEG/G-TUBE SCH (18:12)
[2023-10-14] MEDS ORDERED: [UNRECOGNIZED DRUG - OTHER] PEG/G-TUBE SCH (21:00)
[2023-10-15] MEDS: lamoTRIgine 25 MG TAB PEG/G-TUBE SCH (05:49)
[2023-10-15] MEDS: amLODIPine 10 MG TAB PEG/G-TUBE SCH (05:49)
[2023-10-15] MEDS: LEVOTHYROXINE 50 MCG TAB PEG/G-TUBE SCH (05:50)
[2023-10-15] MEDS: ALBUTEROL NEBULIZED 2.5 MG/3 ML INHALATION PRN (09:31)
[2023-10-15 10:52] LABS: HCT 30.7 % (39.6-50.0); HGB 9.6 g/dL (13.0-17.0); MCH 24.3 pg (27.0-32.0); MCHC 31.3 g/dL (32.0-37.0); MCV 77.7 FL (80.0-97.0); Mean Platelet Volume 9.2 FL (9.5-12.2); NRBC Per 100 WBC 0 X 10*3/uL (0.00-0.01); Platelet Count 531 X 10*3/uL (140-440); RBC 3.95 X 10*6/uL (4.40-5.60); RDW 16.8 % (11.5-14.5); WBC 24.13 X 10*3/uL (4.50-10.00)
--- NOTE | 2023-10-15 11:05 | P.PN ---
Subjective Progress Note Date: 10/15/23 First pod right radical nephrctomy He feels ok. vss afebrile uo good wbc down to 24 from 32 Objective - Vital Signs Vital signs: Vital Signs Temp 99.1 F 10/15/23 07:02 Pulse 99 10/15/23 09:42 Resp 17 10/15/23 07:02 BP 120/80 10/15/23 07:02 Pulse Ox 92 L 10/15/23 07:02 FiO2 Intake & Output 10/14/23 10/15/23 10/15/23 18:59 06:59 18:59 Intake Total 2750 Output Total 460 1100 Balance 2290 -1100 Weight 80.29 kg Intake: IV 2750 Output: Urine 60 1100 Estimated Blood Loss 400 Other: Voiding Method Indwelling Catheter - Labs CBC & Chem 7: 10/15/23 05:41 10/14/23 09:43 Labs: Abnormal Lab Results - Last 24 Hours (Table) 10/14/23 10/15/23 Range/Units 11:39 05:41 WBC 32.0 H 24.13 H (3.8-10.6) k/uL RBC 3.95 L (4.40-5.60) X 10*6/uL Hgb 11.1 L 9.6 L (13.0-17.5) gm/dL Hct 35.9 L 30.7 L (39.0-53.0) % MCV 79.8 L 77.7 L (80.0-100.0) fL MCH 24.6 L 24.3 L (25.0-35.0) pg MCHC 30.8 L 31.3 L (31.0-37.0) g/dL RDW 16.4 H 16.8 H (11.5-15.5) % Plt Count 546 H 531 H (150-450) k/uL MPV 9.2 L (9.5-12.2) FL Assessment and Plan Assessment: Impression: Sp right radical nephrectomy Rec. C/w supportive care, ivf. His wbc down to 24 Not clear as to why it has been elevated. Will continue to monitor
[2023-10-15] MEDS: FLUCONAZOLE 150 MG TAB PO SCH (11:10)
[2023-10-15] MEDS: polyethylene glycoL 3350 17 GM POWD.PACK PEG/G-TUBE SCH (11:11)
[2023-10-15 11:19] LABS: Basophils # (A) 0.03 X 10*3/uL (0.00-0.10); Basophils % (A) 0.1 %; Eosinophils # (A) 0 X 10*3/uL (0.04-0.35); Eosinophils % (A) 0 %; Hypochromasia (M) 2+; Lymphocytes # (A) 1.35 X 10*3/uL (0.90-5.00); Lymphocytes % (A) 5.6 %; Microcytosis (M) 2+; Monocytes # (A) 1.38 X 10*3/uL (0.20-1.00); Monocytes % (A) 5.7 %; Neutrophils # (A) 21.21 X 10*3/uL (1.80-7.70); Neutrophils % (A) 87.9 %
[2023-10-15 11:36] LABS: African American GFR (CKD) >90 (>60 ml/min/1.73 sqM); Anion Gap 6 mmol/L; Blood Urea Nitrogen 14 mg/dL (9-20); Calcium 8.6 mg/dL (8.4-10.2); Carbon Dioxide 31 mmol/L (22-30); Chloride 96 mmol/L (98-107); Glucose 140 mg/dL (74-99); Non-African American GFR(CKD) >90 (>60 ml/min/1.73 sqM); Potassium 4.6 mmol/L (3.5-5.1); Sodium 133 mmol/L (137-145)
[2023-10-16] MEDS: ACETAMINOPHEN TAB 325 MG TAB PO STA (03:35)
--- NOTE | 2023-10-16 07:57 | XR ---
EXAMINATION TYPE: XR chest 1V DATE OF EXAM: 10/16/2023 COMPARISON: 06/10/2023 HISTORY: 43-year-old male postsurgical concern, increased oxygen needs, lung sounds TECHNIQUE: Single frontal view of the chest is obtained. FINDINGS: Right-sided HOUSEKEEPER CAREGIVER shunt catheter. Markedly low lung volumes. Interstitial densities. Patchy l eft basilar opacity. Heart likely borderline to mildly enlarged. IMPRESSION: Portable exam further limited by marked hypoventilatory changes. Unable to exclude a sma ll left pleural effusion. There may be borderline to mild cardiomegaly. Unable to exclude early devel oping multifocal infiltrates versus patchy pulmonary edema. Consider repeat exam with adequate inspir atory effort when patient able.
[2023-10-16 08:02] LABS: Appearance,Urine Turbid (Clear); Bacteria,Urine Rare /hpf; Bilirubin,Urine Negative (Negative); Blood,Urine Large (Negative); Color,Urine Red; Glucose,Urine (UA) Negative (Negative); Ketones,Urine Negative (Negative); Leukocyte Esterase,Urine Large (Negative); Nitrite,Urine Negative (Negative); Protein,Urine 2+ (Negative); RBC,Urine >182 /hpf (0-5); Urobilinogen,Urine <2.0 mg/dL (<2.0); WBC,Urine >182 /hpf (0-5)
--- NOTE | 2023-10-16 08:34 | P.PN ---
Subjective Progress Note Date: 10/16/23 the patient is in his second day status post right radical nephrectomy. Pathology is pending. He had some low-grade fever last night with tachycardia. Chest x-ray is obtained suggesting atelectasis especially in the left lung. Unfortunately this does not surprise me given his limited movement. Objective - Vital Signs Vital signs: Vital Signs Temp 98.9 F 10/16/23 02:00 Pulse 129 H 10/16/23 02:00 Resp 24 10/16/23 02:00 BP 113/73 10/16/23 02:00 Pulse Ox 90 L 10/16/23 02:00 FiO2 Intake & Output 10/15/23 10/16/23 10/16/23 18:59 06:59 18:59 Output Total 1800 950 Balance -1800 -950 Output: Urine 1800 950 Other: Voiding Method Indwelling Catheter Indwelling Catheter - Respiratory Respiratory: bilateral: diminished - Cardiovascular Rhythm: regular - Gastrointestinal Gastrointestinal Comment(s): wound looks okay General gastrointestinal: Present: decreased bowel sounds - Genitourinary Genitourinary Comment(s): indwelling catheter. - Integumentary Integumentary Comment(s): sacral decubitus does not appear to be draining or fluctuant. - Labs CBC & Chem 7: 10/15/23 05:41 10/15/23 11:00 Labs: Abnormal Lab Results - Last 24 Hours (Table) 10/15/23 10/15/23 10/16/23 Range/Units 05:41 11:00 07:38 WBC 24.13 H (4.50-10.00) X 10*3/uL RBC 3.95 L (4.40-5.60) X 10*6/uL Hgb 9.6 L (13.0-17.0) g/dL Hct 30.7 L (39.6-50.0) % MCV 77.7 L (80.0-97.0) FL MCH 24.3 L (27.0-32.0) pg MCHC 31.3 L (32.0-37.0) g/dL RDW 16.8 H (11.5-14.5) % Plt Count 531 H (140-440) X 10*3/uL MPV 9.2 L (9.5-12.2) FL Immature Gran # 0.16 H (0.00-0.04) X 10*3/uL Neutrophils # 21.21 H (1.80-7.70) X 10*3/uL Monocytes # 1.38 H (0.20-1.00) X 10*3/uL Eosinophils # 0 L (0.04-0.35) X 10*3/uL Hypochromasia (manual) 2+ A Microcytosis (manual) 2+ A Sodium 133 L (137-145) mmol/L Chloride 96 L (98-107) mmol/L Carbon Dioxide 31 H (22-30) mmol/L Glucose 140 H (74-99) mg/dL Urine Protein 2+ H (Negative) Urine Blood Large H (Negative) Ur Leukocyte Esterase Large H (Negative) Urine RBC >182 H (0-5) /hpf Urine WBC >182 H (0-5) /hpf Urine Bacteria Rare H (None) /hpf - Imaging and Cardiology Chest x-ray: image reviewed Assessment and Plan Assessment: impression: Status post right radical nephrectomy. Postoperative fever and tachycardia probably secondary to atelectasis Recommendations: I have asked medicine to see. They've ordered Rocephin. We'll have respiratory therapy see the patient to see if they can help with pulmonary toilet. Blood and urine cultures are then obtained. Tylenol as been given. We will continue to monitor the patient.
[2023-10-16 08:42] LABS: HCT 30.5 % (39.6-50.0); HGB 9.8 g/dL (13.0-17.0); MCH 24.8 pg (27.0-32.0); MCHC 32.1 g/dL (32.0-37.0); MCV 77.2 FL (80.0-97.0); Mean Platelet Volume 8.8 FL (9.5-12.2); NRBC Per 100 WBC 0 X 10*3/uL (0.00-0.01); Platelet Count 609 X 10*3/uL (140-440); RBC 3.95 X 10*6/uL (4.40-5.60); RDW 16.8 % (11.5-14.5); WBC 23.73 X 10*3/uL (4.50-10.00)
[2023-10-16 10:00] LABS: Basophils # (A) 0.04 X 10*3/uL (0.00-0.10); Basophils % (A) 0.2 %; Eosinophils # (A) 0.05 X 10*3/uL (0.04-0.35); Eosinophils % (A) 0.2 %; Hypochromasia (M) 2+; Lymphocytes # (A) 1.51 X 10*3/uL (0.90-5.00); Lymphocytes % (A) 6.4 %; Microcytosis (M) 2+; Monocytes # (A) 1.54 X 10*3/uL (0.20-1.00); Monocytes % (A) 6.5 %; Neutrophils # (A) 20.37 X 10*3/uL (1.80-7.70); Neutrophils % (A) 85.8 %; Target Cells 2+
[2023-10-16] MEDS: PIPERACILLIN-TAZOBACTAM 3.375 GM in SODIUM CHLORIDE 0.9% 100 ML IVPB SCH (12:07)
[2023-10-16] MEDS: METOPROLOL TARTRATE 25 MG TAB PEG/G-TUBE SCH (12:08)
[2023-10-16] MEDS: ONDANSETRON 4 MG/2 ML VIAL IVP PRN (12:26)
[2023-10-16 12:57] LABS: Glucose,Whole Blood 158 mg/dL (70-110)
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
[2023-10-16 14:24] LABS: Anisocytosis Slight; HCT 32.2 % (39.0-53.0); HGB 9.8 gm/dL (13.0-17.5); Hypochromasia Moderate; MCH 24.2 pg (25.0-35.0); MCHC 30.3 g/dL (31.0-37.0); MCV 79.9 fL (80.0-100.0); Mean Platelet Volume 7.1; Microcytosis Slight; Platelet Count 694 k/uL (150-450); RBC 4.03 m/uL (4.30-5.90); RDW 16.4 % (11.5-15.5); WBC 25.5 k/uL (3.8-10.6)
[2023-10-16] MEDS: ACETAMINOPHEN TAB 325 MG TAB PO PRN (14:39)
--- NOTE | 2023-10-16 16:21 | CDI ---
Documentation Clarification Form Date: 10/16/2023 03:27:00 PM From: Megan Deal RN, [id number] Phone: [phone] Admit Date: 10/14/2023 06:15:00 AM Patient Name: Yung Borrero Visit Number: [id number] Discharge Date: ATTENTION: The Clinical Documentation Specialists (CDI) and [facility] Coding Staff appreciate your assistance in clarifying documentation. Please respond to the clarification below the line at the bottom and electronically sign. The CDI & [facility] Coding staff will review the response and follow-up if needed. Please note: Queries are made part of the Legal Health Record. If you have any questions, please contact the author of this message via ITS. Dr. Will Flannery Postoperative fever and tachycardia probably secondary to atelectasis is documented in your progress note on 10/16/23. Additional clarification is requested regarding the relationship, if any, that exists between the diagnosis and the procedure. Patients Admitting Diagnosis: Right renal mass Post-Operative Diagnosis: Same Procedure performed: Right radical nephrectomy History/Risk Factors: Cancer, GERD/Reflux, Hypertension, Renal Disease, Seizure Disorder, Thyroid Disorder Clinical Indicators: 43-year-old male with complaints of abdominal pain identifying an enhancing right renal mass. He had an elective right radical nephrectomy on 10/14/23. 7/3 VS: 101/65 101 18 97.0 (temporal) Labs: WBC 32.0, HGB 11.1, HCT 35.9, Na 132 7/4 VS: (20:00) 110/69 119 97.7 91% 2 L/NC; Labs: 24.13 HGB 9.6, HCT 30.7 Neutrophils 21.21 Na 133 7/5 VS: (07:12) 104/73 120 18 100.3 94% 3/L NC Treatment: Rocephin 2 GM IVPB Once 10/15 Zosyn 3.75 GM IVPB Q 8 HRS Monitor O2 Sat's (titrate) Ventolin Inhalation Q6 HRS -RT : What relationship, if any, exists between the diagnosis of Postoperative fever and tachycardia probably secondary to atelectasis and the procedure? [ ] Postoperative fever and tachycardia probably secondary to atelectasis is a complication of surgical procedure [ ] Postoperative fever and tachycardia probably secondary to atelectasis is an expected outcome of the surgical procedure [ ] Postoperative fever and tachycardia probably secondary to atelectasis is related to patients co-morbid condition(s) of [insert co-morbid dxs] & not a complication of the procedure [ ] Other please specify ____ [ ] Unable to determine (Template Last Revised: June 2020) MTDD
[2023-10-16] MEDS: bisacodyL 10 MG SUPP RECTAL PRN (17:38)
--- NOTE | 2023-10-16 18:45 | XR ---
EXAMINATION TYPE: XR abdomen 1V DATE OF EXAM: 10/16/2023 6:16 PM CLINICAL INDICATION:Male, 43 years old with history of eval for ileus vs obstruction COMPARISON: 07/23/2023. TECHNIQUE: One radiographic view of the abdomen was obtained. FINDINGS: Ventricular peritoneal shunt tubing terminates in the right mid abdomen. Surgical clips are present skin noel are present. Gaseous dilation of bowel loops. Moderate amount stool in the rect um. IMPRESSION: Gaseous dilation of colon and small which could represent ileus versus obstruction. Consider further evaluation with CT with oral contrast and IV contrast.
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
[2023-10-17 09:27] LABS: HCT 27.3 % (39.6-50.0); HGB 8.6 g/dL (13.0-17.0); MCH 24.4 pg (27.0-32.0); MCHC 31.5 g/dL (32.0-37.0); MCV 77.3 FL (80.0-97.0); Mean Platelet Volume 8.8 FL (9.5-12.2); NRBC Per 100 WBC 0 X 10*3/uL (0.00-0.01); Platelet Count 568 X 10*3/uL (140-440); RBC 3.53 X 10*6/uL (4.40-5.60); RDW 16.8 % (11.5-14.5); WBC 32.35 X 10*3/uL (4.50-10.00)
--- NOTE | 2023-10-17 10:01 | P.PN ---
Subjective Progress Note Date: 10/17/23 The patient is inhis second postoperative day from a right radical nephrectomy. He has had some postoperative fever probably secondary to atelectasis as expected given the surgical procedure level alone his inability to breathe and cough due to his comorbid condition. He also has an ileus an NG tube was placed. His white count is elevated for probable pulmonary reasons. Objective - Vital Signs Vital signs: Vital Signs Temp 100.6 F H 10/17/23 07:20 Pulse 104 H 10/17/23 08:18 Resp 18 10/17/23 07:20 BP 102/63 10/17/23 07:20 Pulse Ox 97 10/17/23 08:10 FiO2 Intake & Output 10/16/23 10/17/23 10/17/23 18:59 06:59 18:59 Output Total 1800 Balance -1800 Weight 80.29 kg Output: Gastric Drainage 1200 Urine 600 Other: Voiding Method Indwelling Catheter - Constitutional General appearance: Present: no acute distress - Respiratory Respiratory: bilateral: diminished - Cardiovascular Rhythm: regular - Gastrointestinal Gastrointestinal Comment(s): NG tube, soft - Genitourinary Genitourinary Comment(s): indwelling catheter normal genitalia - Integumentary Integumentary Comment(s): decubitus without obvious fluctuation or crepitus. - Musculoskeletal Musculoskeletal Comment(s): no evidence of phlebitis or swelling - Labs CBC & Chem 7: 10/17/23 06:50 10/15/23 11:00 Labs: Abnormal Lab Results - Last 24 Hours (Table) 10/16/23 10/16/23 10/16/23 Range/Units 06:33 12:45 13:55 WBC 25.5 H (3.8-10.6) k/uL RBC 4.03 L (4.30-5.90) m/uL Hgb 9.8 L (13.0-17.5) gm/dL Hct 32.2 L (39.0-53.0) % MCV 79.9 L (80.0-100.0) fL MCH 24.2 L (25.0-35.0) pg MCHC 30.3 L (31.0-37.0) g/dL RDW 16.4 H (11.5-15.5) % Plt Count 694 H (150-450) k/uL MPV (9.5-12.2) FL Immature Gran # 0.22 H (0.00-0.04) X 10*3/uL Neutrophils # 20.37 H (1.80-7.70) X 10*3/uL Monocytes # 1.54 H (0.20-1.00) X 10*3/uL Hypochromasia (manual) 2+ A Microcytosis (manual) 2+ A Target Cells 2+ A POC Glucose (mg/dL) 158 H (70-110) mg/dL 10/17/23 Range/Units 06:50 WBC 32.35 H (3.8-10.6) k/uL RBC 3.53 L (4.30-5.90) m/uL Hgb 8.6 L (13.0-17.5) gm/dL Hct 27.3 L (39.0-53.0) % MCV 77.3 L (80.0-100.0) fL MCH 24.4 L (25.0-35.0) pg MCHC 31.5 L (31.0-37.0) g/dL RDW 16.8 H (11.5-15.5) % Plt Count 568 H (150-450) k/uL MPV 8.8 L (9.5-12.2) FL Immature Gran # (0.00-0.04) X 10*3/uL Neutrophils # (1.80-7.70) X 10*3/uL Monocytes # (0.20-1.00) X 10*3/uL Hypochromasia (manual) Microcytosis (manual) Target Cells POC Glucose (mg/dL) (70-110) mg/dL Assessment and Plan Assessment: impression: Postoperative day #2 from radical nephrectomy due to a mass seen on computed tomography scan. Extremely difficult intraoperative procedure due to inflammation of indeterminate cause. Postoperative fever probably due to atelectasis rule out pneumonia. Postoperative ileus. Recommendations: The patient has an NG tube, IV fluids, IV antibiotics and De La Vega catheter. Medicine and infectious disease or assisting in this patient's care. We'll continue with supportive care.
[2023-10-17 11:54] LABS: ALT 40 U/L (10-49); AST 32 U/L (14-35); Albumin 2.8 g/dL (3.8-4.9); Alkaline Phosphatase 220 U/L (41-126); BUN/Creat Ratio 12.33 Ratio (12.00-20.00); Blood Urea Nitrogen 14.8 mg/dL (9.0-27.0); Calcium 8.3 mg/dL (8.7-10.3); Carbon Dioxide 26.5 mmol/L (21.6-31.8); Chloride 92 mmol/L (96-109); Globulin 2.8 g/dL (1.6-3.3); Glucose 120 mg/dL (70-110); Potassium 4.4 mmol/L (3.5-5.5); Sodium 133 mmol/L (135-145); Total Protein 5.6 g/dL (6.2-8.2)
[2023-10-17] MEDS: IOPAMIDOL CONTRAST (ORAL USE) VIAL PO PRN (14:11)
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
--- NOTE | 2023-10-17 17:09 | CT ---
EXAMINATION TYPE: CT abdomen pelvis w con CT DLP: 1485.5 mGycm, Automated exposure control for dose reduction was used. DATE OF EXAM: 10/17/2023 4:11 PM COMPARISON: 07/23/2023. CLINICAL INDICATION:Male, 43 years old with history of sepsis , abd distension , recent R nephrectomy ; abdominal pain and distention. Recent right nephrectomy TECHNIQUE: Axial CT abdomen pelvis w con;Sagittal and coronal reformats were created on a separate w orkstation. Contrast used:100 ml mL of Isovue 300 with IV Contrast, (none if empty) Oral contrast used: with Oral Contrast (none if empty) FINDINGS: LOWER CHEST: The opacities in the lung bases with more consolidation in the right lung base. ABDOMEN LIVER: Unremarkable GALLBLADDER AND BILE DUCTS: Pericholecystic fluid or wall thickening along the liver capsule PANCREAS: Unremarkable. SPLEEN: Unremarkable. ADRENAL GLANDS: Unremarkable. KIDNEYS AND URETERS: Right nephrectomy changes e fluid and surgical clips in the surgical bed. Fluid appears simple. No evidence of hydronephrosis or renal calculus. The ureters are unremarkable. PELVIS BLADDER: Multiple bladder calculi present. De La Vega catheter in place. REPRODUCTIVE: Unremarkable. ABDOMEN & PELVIS STOMACH AND BOWEL: No evidence of bowel obstruction. There is prominence of the small bowel There is suspected PEG tube and mild circumferential nasogastric tube felt to be present. Both terminating in the gastric lumen. Large amount stool in the colon. Mild circumferential wall thickening of the rectu m. PERITONEUM/RETROPERITONEUM: Free fluid in the gallbladder fossa with pneumoperitoneum and fluid in th e anterior aspect of the liver and diaphragm. No organizing fluid collections. VASCULATURE: No evidence of aortic aneurysm. MUSCULOSKELETAL: No acute osseous abnormalities LYMPH NODES: No gross evidence for lymphadenopathy. SOFT TISSUE/ABDOMINAL WALL: Ventriculoperitoneal shunt tubing traverses the abdomen terminating in th e anterior right abdomen. IMPRESSION: 1. Right nephrectomy changes with small amount of free fluid in the surgical bed. Fluid is simple de nsity. Fluid and gas also up by the anterior aspect of the liver near the diaphragm. 2. Small amount of fluid around the gallbladder fossa favored to be related to patient's recent surg roxanne correlate for signs and symptoms of acute cholecystitis. 3. Large amount of stool throughout the colon with prominence of the small bowel. Findings could rep resent ileus from recent surgery 4. De La Vega catheter in place with multiple bladder calculi. 5. Circumferential wall thickening of the rectum correlate for proctitis. 6. Streaky atelectasis/airspace consolidation changes in the lung bases. Correlate for aspiration/pn eumonia.
--- NOTE | 2023-10-17 18:26 | P.PN ---
Progress Note - Text Progress Note Date: 10/17/23 CHIEF COMPLAINT: Abdominal Distention HISTORY OF PRESENT ILLNESS: Patient had nausea and vomiting ROS: No fevers or chills. No new chest pain. +Nausea/Vomiting , PHYSICAL EXAM: VITAL SIGNS: Reviewed CONSTITUTIONAL: Well developed and in no acute distress. EYES: Conjuctivae without sclera icterus. Extraocular movements grossly intact. HEAD, EARS, NOSE, THROAT: Moist buccal mucosa. Head is atraumatic, normocephalic. She is hard of hearing. No nasal drainage. RESPIRATORY: Non-labored respirations and equal bilateral excursions. CARDIOVASCULAR: Palpable 2+ radial pulses. ABDOMEN: Abdomen Distended MUSCULOSKELETAL: No gross deformity of the lower extremities noted. No clubbi ng. No cyanosis. SKIN: Good skin turgor. Well perfused. NEUROLOGIC: Cranial nerves II through XII grossly intact. No focal or lateralizing signs. PSYCH: Appropriate affect. Alert and oriented to person, place and time. CLINICAL LABS: Reviewed. ASSESSMENT: 1. Postsurgical ileus 2. Leukocytosis 3. Acute blood loss anemia 4. Thrombocytosis 5. Right renal cell cancer status post open nephrectomy 6. Traumatic brain injury 7. Seizure disorder 8. Gastrostomy tube status 9. Hyponatremia PLAN: 1. CT-AP reviewed showing ileus and large stool burden 2. Patient may benefit from suppositories 3. NPO 4. NGT-LIS
--- NOTE | 2023-10-18 13:04 | P.PN ---
Subjective Progress Note Date: 10/18/23 thirdpostoperative day from a right radical nephrectomy.the patient is feeling better. He had a bowel movement yesterday. His vital signs are stable. His urine output is good. He responds to possibly having an appetite. Objective - Vital Signs Vital signs: Vital Signs Temp 98.9 F 10/18/23 07:07 Pulse 97 10/18/23 07:07 Resp 16 10/18/23 07:07 BP 104/70 10/18/23 07:07 Pulse Ox 90 L 10/18/23 07:07 FiO2 Intake & Output 10/17/23 10/18/23 10/18/23 18:59 06:59 18:59 Output Total 500 600 Balance -500 -600 Weight 80.29 kg Output: Gastric Drainage 200 Urine 500 400 Other: Voiding Method Indwelling Catheter Indwelling Catheter Indwelling Catheter # Bowel Movements 1 - Respiratory Respiratory: bilateral: diminished - Cardiovascular Rhythm: regular - Gastrointestinal Gastrointestinal Comment(s): soft and nontender chronically distended wound looks good. - Genitourinary Genitourinary Comment(s): normal genital examination indwelling catheter. - Labs CBC & Chem 7: 10/17/23 06:50 10/17/23 06:50 Labs: Microbiology - Last 24 Hours (Table) 10/16/23 07:38 Urine Culture - Final Urine,Voided Flores albicans 10/16/23 06:33 Blood Culture - Preliminary Blood Assessment and Plan Assessment: impression: Postoperative right radical nephrectomy. Postoperative atelectasis versus pneumonia.postoperative ileus resolving. Recommendations:if okay with general surgery will start him on some liquids. We'll continue with IV fluids and antibiotics. The pathology shows chronic pyelonephritis chronic scarring without obvious cancer.
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
[2023-10-18] MEDS: FLUCONAZOLE 100 MG TAB PO ONE (17:14)
[2023-10-18] MEDS: AMOXIC-POT CLAV 875-125MG 1 EACH TAB PO SCH (21:49)
[2023-10-18] MEDS: LACTULOSE 20 GM/30 ML CUP PEG/G-TUBE SCH (21:49)
--- NOTE | 2023-10-19 08:01 | P.PN ---
Subjective Progress Note Date: 10/19/23 fourth post op day from right radical nephrectomy. The patient appears to have turned the corner. He is having bm. His vss and afebrile. His urine culture is growing flores and he is on diflucan. He also is on augmentin. Objective - Vital Signs Vital signs: Vital Signs Temp 99.3 F 10/19/23 02:00 Pulse 95 10/19/23 02:00 Resp 15 10/18/23 20:00 BP 121/61 10/19/23 02:00 Pulse Ox 91 L 10/19/23 02:00 FiO2 Intake & Output 10/18/23 10/19/23 10/19/23 18:59 06:59 18:59 Output Total 950 1000 Balance -950 -1000 Output: Urine 950 1000 Other: Voiding Method Indwelling Catheter Indwelling Catheter # Bowel Movements 1 - Constitutional General appearance: Present: no acute distress - Respiratory Details: normal respirations - Gastrointestinal Gastrointestinal Comment(s): soft, wound healing - Genitourinary Genitourinary Comment(s): bennett catheter with out issues - Labs CBC & Chem 7: 10/17/23 06:50 10/17/23 06:50 Labs: Microbiology - Last 24 Hours (Table) 10/16/23 06:33 Blood Culture - Preliminary Blood 10/16/23 07:38 Urine Culture - Final Urine,Voided Flores albicans Assessment and Plan Assessment: Impression: Sp right radical nephrectomy Plan: c/w supportive care I suspect that he will be ready for d/c in the 24-48 hours. Cbc pending today.
[2023-10-19 09:32] LABS: ALT 30 U/L (4-49); AST 26 U/L (17-59); African American GFR (CKD) >90 (>60 ml/min/1.73 sqM); Albumin 2.8 g/dL (3.5-5.0); Albumin/Globulin Ratio 0.9; Alkaline Phosphatase 226 U/L (38-126); Anion Gap 4 mmol/L; Blood Urea Nitrogen 11 mg/dL (9-20); Calcium 8.5 mg/dL (8.4-10.2); Carbon Dioxide 35 mmol/L (22-30); Chloride 98 mmol/L (98-107); Globulin 3.1 g/dL; Glucose 105 mg/dL (74-99); Non-African American GFR(CKD) >90 (>60 ml/min/1.73 sqM); Potassium 3.4 mmol/L (3.5-5.1); Sodium 137 mmol/L (137-145); Total Bilirubin 0.5 mg/dL (0.2-1.3); Total Protein 5.9 g/dL (6.3-8.2)
[2023-10-19 10:19] LABS: Anisocytosis Slight; Basophils % (A) 0 %; Eosinophils # (A) 0.4 k/uL (0-0.7); Eosinophils % (A) 3 %; HCT 29.8 % (39.0-53.0); HGB 8.8 gm/dL (13.0-17.5); Hypochromasia Marked; Lymphocytes % (A) 15 %; MCH 24.3 pg (25.0-35.0); MCHC 29.4 g/dL (31.0-37.0); MCV 82.7 fL (80.0-100.0); Mean Platelet Volume 7.2; Monocytes # (A) 0.8 k/uL (0-1.0); Monocytes % (A) 6 %; Neutrophils # (A) 9.7 k/uL (1.3-7.7); Neutrophils % (A) 74 %; Platelet Count 921 k/uL (150-450); WBC 13.1 k/uL (3.8-10.6)
[2023-10-19] MEDS: FLUCONAZOLE 100 MG TAB PO SCH (11:20)
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
[2023-10-19] MEDS: POTASSIUM BICARBONATE/CIT AC 20 MEQ TABLET.EFF PO ONE (14:58)
--- NOTE | 2023-10-19 18:26 | CDI ---
post op ileus is common post radical nephrectomy Documentation Clarification Form Date: 10/19/2023 06:25:37 PM From: Megan Deal RN, CCDS Phone: [phone] Admit Date: 10/14/2023 06:15:00 AM Patient Name: Yung Borrero Visit Number: [id number] Discharge Date: ATTENTION: The Clinical Documentation Specialists (CDI) and [facility] Coding Staff appreciate your assistance in clarifying documentation. Please respond to the clarification below the line at the bottom and electronically sign. The CDI & [facility] Coding staff will review the response and follow-up if needed. Please note: Queries are made part of the Legal Health Record. If you have any questions, please contact the author of this message via ITS. Dr. Will Flannery Postoperative ileus is documented in the ongoing progress notes starting on 10/16/23 and the patient had a right radial nephrectomy on 10/14/23. Additional clarification is requested regarding the relationship, if any, that exists between the diagnosis and the procedure. Patients Admitting Diagnosis: Right renal mass Post-Operative Diagnosis: Same Procedure performed: Right radical nephrectomy History/Risk Factors: Cancer, GERD/Reflux, Hypertension, Renal Disease, Seizure Disorder, Thyroid Disorder Clinical Indicators: 43-year-old male with complaints of abdominal pain identifying an enhancing right renal mass. He had an elective right radical nephrectomy on 10/14/23. 10/15 Abdomen XR: Gaseous dilation of colon and small bowel which could represent ileus versus obstruction. 10/16 Abdomen/Pelvis C. Large amount of stool thoughout the colon with prominence of the small bowel. Findings could represent ileus from recent surgery Treatment: N.P.O per orders NGT per orders What relationship, if any, exists between the diagnosis of Postoperative ileus and the procedure: [ ] Postoperative ileus is a complication of surgical procedure [ ] Postoperative ileus is an expected outcome of the surgical procedure [ ] Postoperative ileus is related to patients co-morbid condition(s) of [insert co-morbid dxs] & not a complication of the procedure [ ] Other please specify ____ [ ] Unable to determine (Template Last Revised: June 2020) [post op ileus is common post radical nephrectomy especially in a abedridden handicapped patient MTDD
--- NOTE | 2023-10-20 08:51 | P.PN ---
Subjective Progress Note Date: 10/20/23 No acute overnight event denies any abdominal pain, did have a temperature of 100.0 this morning Objective - Vital Signs Vital signs: Vital Signs Temp 100.3 F H 10/20/23 07:53 Pulse 102 H 10/20/23 07:53 Resp 14 10/20/23 07:53 BP 119/80 10/20/23 07:53 Pulse Ox 94 L 10/20/23 08:16 FiO2 Intake & Output 10/19/23 10/20/23 10/20/23 18:59 06:59 18:59 Intake Total 236 Output Total 1100 300 Balance -864 -300 Weight 80.29 kg Intake: Oral 236 Output: Urine 1100 300 Other: Voiding Method Indwelling Catheter Indwelling Catheter # Bowel Movements 1 - Constitutional General appearance: Present: no acute distress - Gastrointestinal General gastrointestinal: Present: distended, soft. Absent: tenderness - Labs CBC & Chem 7: 10/19/23 08:51 10/19/23 08:51 Labs: Abnormal Lab Results - Last 24 Hours (Table) 10/19/23 10/19/23 Range/Units 08:51 08:51 WBC 13.1 H (3.8-10.6) k/uL RBC 3.60 L (4.30-5.90) m/uL Hgb 8.8 L (13.0-17.5) gm/dL Hct 29.8 L (39.0-53.0) % MCH 24.3 L (25.0-35.0) pg MCHC 29.4 L (31.0-37.0) g/dL RDW 17.0 H (11.5-15.5) % Plt Count 921 H (150-450) k/uL Neutrophils # 9.7 H (1.3-7.7) k/uL Potassium 3.4 L (3.5-5.1) mmol/L Carbon Dioxide 35 H (22-30) mmol/L Glucose 105 H (74-99) mg/dL Alkaline Phosphatase 226 H (38-126) U/L Total Protein 5.9 L (6.3-8.2) g/dL Albumin 2.8 L (3.5-5.0) g/dL Microbiology - Last 24 Hours (Table) 10/16/23 06:33 Blood Culture - Preliminary Blood Assessment and Plan Assessment: Postop day #6 status post right open nephrectomy by Dr. Flannery, post course complicated by a postoperative ileus. Abdominal distention is improving, did have a temperature of 100.0, will plan on keeping in the hospital for 1 more day. If continues to do well in the plan to discharge home tomorrow
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
[2023-10-20 10:26] LABS: African American GFR (CKD) >90 (>60 ml/min/1.73 sqM); Anion Gap 5 mmol/L; Blood Urea Nitrogen 10 mg/dL (9-20); Carbon Dioxide 35 mmol/L (22-30); Chloride 97 mmol/L (98-107); Glucose 118 mg/dL (74-99); Non-African American GFR(CKD) 86 (>60 ml/min/1.73 sqM); Potassium 4.4 mmol/L (3.5-5.1); Sodium 137 mmol/L (137-145)
[2023-10-20 10:42] LABS: Anisocytosis Slight; Basophils # (A) 0.1 k/uL (0-0.2); Basophils % (A) 0 %; Eosinophils # (A) 0.4 k/uL (0-0.7); Eosinophils % (A) 3 %; HCT 30.5 % (39.0-53.0); HGB 9.2 gm/dL (13.0-17.5); Hypochromasia Moderate; Lymphocytes # (A) 1.8 k/uL (1.0-4.8); Lymphocytes % (A) 13 %; MCH 24.4 pg (25.0-35.0); MCHC 30.3 g/dL (31.0-37.0); MCV 80.5 fL (80.0-100.0); Mean Platelet Volume 7.5; Monocytes # (A) 0.9 k/uL (0-1.0); Monocytes % (A) 6 %; Neutrophils # (A) 10.4 k/uL (1.3-7.7); Neutrophils % (A) 75 %; RBC 3.79 m/uL (4.30-5.90); RDW 16.9 % (11.5-15.5); WBC 13.9 k/uL (3.8-10.6)
[2023-10-20 11:01] LABS: Platelet Count 1061 k/uL (150-450)
[2023-10-20 11:39] LABS: Polychromasia Present; Target Cells Present
[2023-10-20] MEDS: PIPERACILLIN-TAZOBACTAM 3.375 GM in SODIUM CHLORIDE 0.9% 100 ML IVPB SCH (12:33)
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
--- NOTE | 2023-10-20 13:13 | XR ---
EXAMINATION TYPE: XR chest 1V portable DATE OF EXAM: 10/20/2023 COMPARISON: [id number] INDICATION: Fever, pneumonia TECHNIQUE: Single frontal view of the chest is obtained. FINDINGS: The heart size is normal. The pulmonary vasculature is normal. The lungs are clear. Shunt type catheter crosses the right chest. IMPRESSION: 1. No acute pulmonary process.
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
--- NOTE | 2023-10-21 09:59 | CDI ---
Documentation Clarification Form Date: 10/21/2023 09:07:55 AM From: Megan Deal RN, CCDS Phone: [phone] Admit Date: 10/14/2023 06:15:00 AM Patient Name: Yung Borrero Visit Number: [id number] Discharge Date: ATTENTION: The Clinical Documentation Specialists (CDI) and [facility] Coding Staff appreciate your assistance in clarifying documentation. Please respond to the clarification below the line at the bottom and electronically sign. The CDI & [facility] Coding staff will review the response and follow-up if needed. Please note: Queries are made part of the Legal Health Record. If you have any questions, please contact the author of this message via ITS. Dr. Will Flannery The patient has sepsis documented in the ongoing ID Consult and subsequent progress notes. Based on this information and the findings below, is there an additional diagnosis that is clinically appropriate for this patient? History/Risk Factors: Cancer, GERD/Reflux, Hypertension, Renal Disease, Seizure Disorder, Thyroid Disorder, Chronic De La Vega catheter Clinical Indicators: 43 year-old male, mentally handicapped. He was having abdominal pain that led to an evaluation, CT scan of the abdomen, identifying and enhancing right renal mass. He present for right radical nephrectomy. 10/11 [facility] Labs: (10/06) WBC 10.64 10/11 [facility] Labs: UA: (10/07) Ur Leukocyte esterase Moderate WBC 40-50; UA yeast - present 10/15 UA: Ur Leukocyte Esterase Large, WBC >182 10/13 WBC 31.1, Neutrophils 27.2, NA+ 132, WBC 32.0, Neutrophils 21.2 10/14 WBC 24.13, Neutrophils 21.21 Vital signs: 10/13 (07:05) 101/65 101 18 970 (temporal) 95% RA Vital signs: (07:02) 120/80 103 17 99.1 92% 2/L NC ID Consult: patient with sepsis in this patient who did have fever tachycardia elevated white counts source questionably urinary or question of pneumonitis/aspiration and will need to cover for the enteric gram-negative to be the likely pathogen. Sepsis. UTI (urinary tract infection) Treatment: Zosyn 3.37 GM Q8 HRS Diflucan 100 MG PO Daily Is there an additional diagnosis that is clinically appropriate for this patient? [ ] Sepsis, present on admission, secondary to UTI related to chronic De La Vega catheter present on admission [ ] No additional diagnosis/not clinically significant [ ] Other, please specify [ ] Unable to determine SIRS Criteria: 2 or more of the following may indicate SIRS Temperature < 96.8F (36C) or > 101.0F (38.3C) Heart Rate > 90 bpm Respiratory Rate > 20 breaths/min or PaCO2 < 32 mmHg White Blood Cell Count > 12,000 or < 4,000 cells/mm3 or > 10% bands (Template Last Reviewed: April 2022) MTDD
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
--- NOTE | 2023-10-21 11:31 | XR ---
EXAMINATION TYPE: XR abdomen 1V DATE OF EXAM: 10/21/2023 COMPARISON: 10/16/2023 INDICATION: Recent ileus, fevers TECHNIQUE: Single view abdomen spine view FINDINGS: There is elevation of the right diaphragm. Postsurgical skin noel are within the right upper quadr ant. GERMINATION WORKER shunt type catheter is over the right abdomen. Multiple surgical clips are right of the midli ne may be a prior nephrectomy. PEG tube is on the left. Normal colonic bowel gas is present. There is some mild prominence of loops of bowel within the right mid abdomen may be some ileus or mild partial obstruction. No mass effect is evident. Psoas margins are normal. No organomegaly is present. IMPRESSION: 1. Suggestion of mild ileus right mid abdomen.
[2023-10-21 12:28] LABS: BUN/Creat Ratio 10.92 Ratio (12.00-20.00); Blood Urea Nitrogen 13.1 mg/dL (9.0-27.0); Carbon Dioxide 28.8 mmol/L (21.6-31.8); Chloride 98 mmol/L (96-109); Glucose 101 mg/dL (70-110); Magnesium 2.2 mg/dL (1.5-2.4); Potassium 4.6 mmol/L (3.5-5.5); Sodium 140 mmol/L (135-145)
[2023-10-21 12:29] LABS: Calcium 8.8 mg/dL (8.7-10.3)
[2023-10-21 12:52] LABS: Basophils # (A) 0.05 X 10*3/uL (0.00-0.10); Basophils % (A) 0.3 %; Eosinophils # (A) 0.34 X 10*3/uL (0.04-0.35); Eosinophils % (A) 2.3 %; HCT 27.1 % (39.6-50.0); Lymphocytes % (A) 13.4 %; MCHC 29.5 g/dL (32.0-37.0); MCV 81.4 FL (80.0-97.0); Monocytes # (A) 1.18 X 10*3/uL (0.20-1.00); Monocytes % (A) 7.9 %; NRBC Per 100 WBC 0 X 10*3/uL (0.00-0.01); Neutrophils # (A) 11.03 X 10*3/uL (1.80-7.70); Neutrophils % (A) 74.2 %; Platelet Count 1055 X 10*3/uL (140-440); RBC 3.33 X 10*6/uL (4.40-5.60); RDW 17.8 % (11.5-14.5); WBC 14.88 X 10*3/uL (4.50-10.00)
[2023-10-21] MEDS ORDERED: ACETAMINOPHEN IV (For NPO) 1,000 MG in EMPTY BAG 1 BAG IVPB PRN (15:06)
--- NOTE | 2023-10-21 15:28 | XR ---
EXAMINATION TYPE: XR chest 1V portable DATE OF EXAM: 10/21/2023 COMPARISON: 10/20/2023 INDICATION: Fever and hypoxemia TECHNIQUE: Single frontal view of the chest is obtained. FINDINGS: The heart size is normal. The pulmonary vasculature is normal. Streaky opacities in the right lower lung field. Correlate for atelectasis. This is slightly increase d from the prior. Shunt type catheter overlies the right chest IMPRESSION: 1. Slight increase streak atelectasis right lower lobe
--- NOTE | 2023-10-21 17:17 | P.PN ---
Subjective Patient spiked a fever 101.5. Denies any abdominal pain nausea or vomiting. Objective - Vital Signs Vital signs: Vital Signs Temp 99.5 F 10/21/23 15:25 Pulse 100 10/21/23 14:08 Resp 20 10/21/23 14:08 BP 96/62 10/21/23 14:08 Pulse Ox 97 10/21/23 14:08 FiO2 Intake & Output 10/20/23 10/21/23 10/21/23 18:59 06:59 18:59 Intake Total 2018 Output Total 150 500 150 Balance -150 -500 5086 Weight 80.29 kg Intake: Tube Feeding 2018 Output: Urine 150 500 150 Other: Voiding Method Indwelling Catheter Indwelling Catheter Indwelling Catheter - Constitutional General appearance: Present: no acute distress - Gastrointestinal General gastrointestinal: Present: distended, soft. Absent: tenderness - Labs CBC & Chem 7: 10/21/23 06:26 10/21/23 06:26 Labs: Abnormal Lab Results - Last 24 Hours (Table) 10/21/23 10/21/23 10/21/23 Range/Units 06:26 06:26 15:06 WBC 14.88 H (4.50-10.00) X 10*3/uL RBC 3.33 L (4.40-5.60) X 10*6/uL Hgb 8.0 L (13.0-17.0) g/dL Hct 27.1 L (39.6-50.0) % MCH 24.0 L (27.0-32.0) pg MCHC 29.5 L (32.0-37.0) g/dL RDW 17.8 H (11.5-14.5) % Plt Count 1055 A* (140-440) X 10*3/uL MPV 9.0 L (9.5-12.2) FL Immature Gran # 0.28 H (0.00-0.04) X 10*3/uL Neutrophils # 11.03 H (1.80-7.70) X 10*3/uL Monocytes # 1.18 H (0.20-1.00) X 10*3/uL Anion Gap 13.20 H (4.00-12.00) mmol/L BUN/Creatinine Ratio 10.92 L (12.00-20.00) Ratio C-Reactive Protein 5.1 H (<1.0) mg/dL Microbiology - Last 24 Hours (Table) 10/20/23 11:46 Blood Culture - Preliminary Blood 10/16/23 06:33 Blood Culture - Final Blood Assessment and Plan Assessment: Postop day #7 status post right open nephrectomy by Dr. Flannery, post course complicated by a postoperative ileus. Patient had a spike of fever of 101.5, distention is stable compared to yesterday, was evaluated by general surgery and cleared for discharge. from urology standpoint he will be cleared for discharge when he is afebrile for 24 hours and is medically cleared
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
[2023-10-22 10:58] LABS: BUN/Creat Ratio 12.18 Ratio (12.00-20.00); Blood Urea Nitrogen 13.4 mg/dL (9.0-27.0); Calcium 8.7 mg/dL (8.7-10.3); Carbon Dioxide 29.7 mmol/L (21.6-31.8); Chloride 100 mmol/L (96-109); Glucose 94 mg/dL (70-110); Magnesium 2.2 mg/dL (1.5-2.4); Potassium 4.4 mmol/L (3.5-5.5); Sodium 140 mmol/L (135-145)
[2023-10-22 11:01] LABS: Basophils # (A) 0.05 X 10*3/uL (0.00-0.10); Basophils % (A) 0.3 %; Eosinophils # (A) 0.42 X 10*3/uL (0.04-0.35); Eosinophils % (A) 2.6 %; HCT 25.8 % (39.6-50.0); HGB 7.7 g/dL (13.0-17.0); Lymphocytes # (A) 2.41 X 10*3/uL (0.90-5.00); Lymphocytes % (A) 14.8 %; MCH 24.2 pg (27.0-32.0); MCHC 29.8 g/dL (32.0-37.0); MCV 81.1 FL (80.0-97.0); Mean Platelet Volume 8.8 FL (9.5-12.2); Monocytes # (A) 1.16 X 10*3/uL (0.20-1.00); Monocytes % (A) 7.1 %; NRBC Per 100 WBC 0 X 10*3/uL (0.00-0.01); Neutrophils # (A) 12.04 X 10*3/uL (1.80-7.70); Platelet Count 1007 X 10*3/uL (140-440); RBC 3.18 X 10*6/uL (4.40-5.60); WBC 16.27 X 10*3/uL (4.50-10.00)
--- NOTE | 2023-10-22 15:18 | P.PN ---
Subjective Progress Note Date: 10/22/23 CHIEF COMPLAINT: Ileus HISTORY OF PRESENT ILLNESS: The patient is a 43-year-old male admitted 10/14/2023 for right renal cell cancer. Postoperative ileus. He is having moderate bowel movements. The patient denies any abdominal pain. Denies any nausea or vomiting. His last fever was 2:00 yesterday of 101.5. Patient did pull out his PEG tube during the night. PEG tube site is sealed. Patient started on a pured diet. Chest x-ray had reported atelectasis. WBC is up at 16.27. Discussed case with medicine service. Patient does rely on the PEG tube for his nutrition needs as well as his medications. PHYSICAL EXAM: VITAL SIGNS: Reviewed GENERAL: Well-developed in no acute distress. HEENT: No sclera icterus. Extraocular movements grossly intact. Moist buccal mucosa. Head is atraumatic, normocephalic. Hears conversational speech. No nasal drainage. NECK: Supple without lymphadenopathy. CHEST: Non-labored respirations and equal bilateral excursions. CARDIOVASCULAR: Palpable 2+ radial pulses. ABDOMEN: Soft. Distended. Tympanic. Nontender. PEG tube site sealed closed. MUSCULOSKELETAL: No clubbing or cyanosis. NEUROLOGIC: No focal or lateralizing signs. Cranial nerves II through XII grossly intact. PSYCH: Appropriate affect. Alert and oriented to person, place and time. SKIN: Well perfused. Good skin turgor. ASSESSMENT: 1. Postsurgical ileus, resolved 2. Leukocytosis 3. Acute blood loss anemia 4. Thrombocytosis 5. Right renal cell cancer status post open nephrectomy 6. Traumatic brain injury 7. Seizure disorder 8. Gastrostomy tube status 9. Hyponatremia PLAN: -Patient is scheduled for PEG tube replacement tomorrow with Dr. Lamas -N.p.o. after midnight Physician Billboard Erector note has been reviewed by physician. Signing provider agrees with the documented findings, assessment, and plan of care. Objective - Vital Signs Vital signs: Vital Signs Temp 99.1 F 10/22/23 08:00 Pulse 87 10/22/23 08:00 Resp 20 10/22/23 08:00 BP 98/66 10/22/23 08:00 Pulse Ox 91 L 10/22/23 08:00 FiO2 Intake & Output 10/21/23 10/22/23 10/22/23 18:59 06:59 18:59 Intake Total 2112 Output Total 300 250 Balance 1813 -250 Weight 80.29 kg Intake: Tube Feeding 2112 Output: Urine 300 250 Other: Voiding Method Indwelling Catheter Indwelling Catheter Indwelling Catheter # Bowel Movements 2 - Labs CBC & Chem 7: 10/22/23 07:18 10/22/23 07:18 Labs: Abnormal Lab Results - Last 24 Hours (Table) 10/21/23 10/21/23 10/22/23 Range/Units 15:06 15:06 07:18 WBC 16.27 H (4.50-10.00) X 10*3/uL RBC 3.18 L (4.40-5.60) X 10*6/uL Hgb 7.7 L (13.0-17.0) g/dL Hct 25.8 L (39.6-50.0) % MCH 24.2 L (27.0-32.0) pg MCHC 29.8 L (32.0-37.0) g/dL RDW 18.0 H (11.5-14.5) % Plt Count 1007 A* (140-440) X 10*3/uL MPV 8.8 L (9.5-12.2) FL Immature Gran # 0.19 H (0.00-0.04) X 10*3/uL Neutrophils # 12.04 H (1.80-7.70) X 10*3/uL Monocytes # 1.16 H (0.20-1.00) X 10*3/uL Eosinophils # 0.42 H (0.04-0.35) X 10*3/uL C-Reactive Protein 5.1 H (<1.0) mg/dL Procalcitonin 0.13 H (0.02-0.09) ng/mL Microbiology - Last 24 Hours (Table) 10/20/23 11:46 Blood Culture - Preliminary Blood 10/16/23 06:33 Blood Culture - Final Blood
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
[2023-10-22] MEDS ORDERED: ZINC OXIDE PASTE (Z-GUARD) 1 APPLIC TOPICAL PRN (16:41)
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
--- NOTE | 2023-10-23 13:38 | P.PN ---
Subjective Progress Note Date: 10/23/23 Patient PEG tube did fall out, plan to undergo PEG tube reinsertion with general surgery today. Denies any abdominal pain, distention is stable. He has been afebrile the past 24 hours Objective - Vital Signs Vital signs: Vital Signs Temp 98.1 F 10/23/23 08:00 Pulse 83 10/23/23 08:00 Resp 17 10/23/23 08:00 BP 84/57 10/23/23 08:00 Pulse Ox 93 L 10/23/23 08:00 FiO2 Intake & Output 10/22/23 10/23/23 10/23/23 18:59 06:59 18:59 Output Total 250 Balance -250 Output: Urine 250 Other: Voiding Method Indwelling Catheter Indwelling Catheter Indwelling Catheter - Constitutional General appearance: Present: no acute distress - Gastrointestinal General gastrointestinal: Present: distended, soft. Absent: tenderness - Labs CBC & Chem 7: 10/22/23 07:18 10/22/23 07:18 Labs: Microbiology - Last 24 Hours (Table) 10/21/23 15:06 Blood Culture - Preliminary Blood 10/20/23 11:46 Blood Culture - Preliminary Blood Assessment and Plan Assessment: Postop day #9 status post right open nephrectomy by Dr. Flannery, post course complicated by a postoperative ileus. Patient had PEG tube follow-up yesterday, plan to undergo reinsertion with general surgery today. from urology standpoint he will be cleared for discharge, likely will keep in the hospital today given planned PEG tube placement.
--- NOTE | 2023-10-23 14:43 | P.PN ---
Subjective Progress Note Date: 10/23/23 CHIEF COMPLAINT: Ileus HISTORY OF PRESENT ILLNESS: The patient is a 43-year-old male admitted 10/14/2023 for right renal cell cancer. Postoperative ileus. He is having moderate bowel movements. The patient denies any abdominal pain. Denies any nausea or vomiting. Patient pulled out his PEG tube. However, patient did tolerate the pured diet yesterday and nursing staff was able to give him his oral medications. At this time PEG tube replacement has been canceled. Afebrile PHYSICAL EXAM: VITAL SIGNS: Reviewed GENERAL: Well-developed in no acute distress. HEENT: No sclera icterus. Extraocular movements grossly intact. Moist buccal mucosa. Head is atraumatic, normocephalic. Hears conversational speech. No nasal drainage. NECK: Supple without lymphadenopathy. CHEST: Non-labored respirations and equal bilateral excursions. CARDIOVASCULAR: Palpable 2+ radial pulses. ABDOMEN: Soft. Less distended. Nontender. PEG tube site sealed closed. MUSCULOSKELETAL: No clubbing or cyanosis. NEUROLOGIC: No focal or lateralizing signs. Cranial nerves II through XII grossly intact. PSYCH: Appropriate affect. Alert and oriented to person, place and time. SKIN: Well perfused. Good skin turgor. ASSESSMENT: 1. Postsurgical ileus, resolved 2. Leukocytosis 3. Acute blood loss anemia 4. Thrombocytosis 5. Right renal cell cancer status post open nephrectomy 6. Traumatic brain injury 7. Seizure disorder 8. Gastrostomy tube status 9. Hyponatremia PLAN: -Consult dietitian for 72-hour calorie count to reassess adequate nutrition needs and if PEG tube truly does need to be replaced -Resume pured diet Physician Surgeon Assistant note has been reviewed by physician. Signing provider agrees with the documented findings, assessment, and plan of care. Objective - Vital Signs Vital signs: Vital Signs Temp 98.1 F 10/23/23 08:00 Pulse 83 10/23/23 08:00 Resp 17 10/23/23 08:00 BP 84/57 10/23/23 08:00 Pulse Ox 93 L 10/23/23 08:00 FiO2 Intake & Output 10/22/23 10/23/23 10/23/23 18:59 06:59 18:59 Output Total 250 Balance -250 Output: Urine 250 Other: Voiding Method Indwelling Catheter Indwelling Catheter Indwelling Catheter - Labs CBC & Chem 7: 10/22/23 07:18 10/22/23 07:18 Labs: Microbiology - Last 24 Hours (Table) 10/21/23 15:06 Blood Culture - Preliminary Blood 10/20/23 11:46 Blood Culture - Preliminary Blood
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
[2023-10-23 20:39] LABS: Anisocytosis Slight; Basophils # (A) 0.1 k/uL (0-0.2); Basophils % (A) 1 %; Eosinophils # (A) 0.4 k/uL (0-0.7); Eosinophils % (A) 3 %; HCT 24.7 % (39.0-53.0); HGB 7.4 gm/dL (13.0-17.5); Hypochromasia Marked; Lymphocytes # (A) 1.4 k/uL (1.0-4.8); Lymphocytes % (A) 13 %; MCH 25.4 pg (25.0-35.0); MCHC 30.2 g/dL (31.0-37.0); Mean Platelet Volume 7.5; Monocytes # (A) 0.8 k/uL (0-1.0); Monocytes % (A) 7 %; Neutrophils # (A) 8.2 k/uL (1.3-7.7); Neutrophils % (A) 74 %; Platelet Count 937 k/uL (150-450); RBC 2.94 m/uL (4.30-5.90); RDW 17.3 % (11.5-15.5); WBC 11.1 k/uL (3.8-10.6)
[2023-10-24 04:45] LABS: Glucose,Whole Blood 93 mg/dL (70-110)
[2023-10-24 06:42] LABS: Anisocytosis Slight; HCT 27.1 % (39.0-53.0); Hypochromasia Marked; MCHC 29.4 g/dL (31.0-37.0); Mean Platelet Volume 7.8; Platelet Count 987 k/uL (150-450); RBC 3.19 m/uL (4.30-5.90); RDW 17.2 % (11.5-15.5); WBC 8.6 k/uL (3.8-10.6)
[2023-10-24 06:53] LABS: Band Neutrophils % 1 %; Eosinophils # (M) 0.43 k/uL (0-0.7); Lymphocytes # (M) 2.32 k/uL (1.0-4.8); Monocytes # (M) 0.26 k/uL (0-1.0); Neutrophils % (M) 64 %; Nucleated Red Blood Cells 0 /100 WBC (0-0); Total Cells Counted 100
[2023-10-24 06:56] LABS: RBC Morphology Normal
[2023-10-24 09:37] LABS: Blood Urea Nitrogen 10.8 mg/dL (9.0-27.0); Carbon Dioxide 26.4 mmol/L (21.6-31.8); Chloride 103 mmol/L (96-109); Glucose 80 mg/dL (70-110); Potassium 4.5 mmol/L (3.5-5.5); Sodium 138 mmol/L (135-145)
[2023-10-24 09:38] LABS: ALT 22 U/L (10-49); AST 16 U/L (14-35); Albumin 2.9 g/dL (3.8-4.9); Albumin/Globulin Ratio 1.04 Ratio (1.60-3.17); Alkaline Phosphatase 132 U/L (41-126); Globulin 2.8 g/dL (1.6-3.3); Total Bilirubin <0.2 mg/dL (0.3-1.2); Total Protein 5.7 g/dL (6.2-8.2)
--- NOTE | 2023-10-24 14:00 | P.PN ---
Progress Note - Text Progress Note Date: 10/24/23 CHIEF COMPLAINT: Ileus HISTORY OF PRESENT ILLNESS: The patient is a 43-year-old male admitted 10/14/2023 for right renal cell cancer. Postoperative ileus. He is having moderate bowel movements. The patient denies any abdominal pain. NAEO. PHYSICAL EXAM: VITAL SIGNS: Reviewed GENERAL: Well-developed in no acute distress. HEENT: No sclera icterus. Extraocular movements grossly intact. Moist buccal mucosa. Head is atraumatic, normocephalic. Hears conversational speech. No nasal drainag e. NECK: Supple without lymphadenopathy. CHEST: Non-labored respirations and equal bilateral excursions. CARDIOVASCULAR: Palpable 2+ radial pulses. ABDOMEN: Soft. Less distended. Nontender. PEG tube site sealed closed. MUSCULOSKELETAL: No clubbing or cyanosis. NEUROLOGIC: No focal or lateralizing signs. Cranial nerves II through XII grossly intact. PSYCH: Appropriate affect. Alert and oriented to person, place and time. SKIN: Well perfused. Good skin turgor. ASSESSMENT: 1. Postsurgical ileus, resolved 2. Leukocytosis 3. Acute blood loss anemia 4. Thrombocytosis 5. Right renal cell cancer status post open nephrectomy 6. Traumatic brain injury 7. Seizure disorder 8. Gastrostomy tube status 9. Hyponatremia PLAN: -Consult dietitian for 72-hour calorie count to reassess adequate nutrition needs and if PEG tube truly does need to be replaced -Resume pured diet
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
--- NOTE | 2023-10-25 12:31 | P.PN ---
Subjective Progress Note Date: 10/25/23 Principal diagnosis: Ileus Patient doing well today. No nausea or vomiting. Tolerating pured diet. Objective - Vital Signs Vital signs: Vital Signs Temp 98.5 F 10/25/23 07:33 Pulse 91 10/25/23 07:33 Resp 16 10/25/23 07:33 BP 117/75 10/25/23 07:33 Pulse Ox 98 10/25/23 07:33 FiO2 Intake & Output 10/24/23 10/25/23 10/25/23 18:59 06:59 18:59 Output Total 500 Balance -500 Output: Urine 500 Other: Voiding Method Indwelling Catheter Indwelling Catheter Indwelling Catheter # Bowel Movements 1 - Exam Abdomen: Soft, nontender, nondistended, incisions clean and dry - Labs CBC & Chem 7: 10/24/23 05:43 10/24/23 05:47 Labs: Microbiology - Last 24 Hours (Table) 10/21/23 15:06 Blood Culture - Preliminary Blood Assessment and Plan Plan: Patient doing better at this time. Ileus appears to be improving. Continue pured diet. Will follow.
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
[2023-10-26 11:09] LABS: BUN/Creat Ratio 5.18 Ratio (12.00-20.00); Blood Urea Nitrogen 5.7 mg/dL (9.0-27.0); Calcium 8.5 mg/dL (8.7-10.3); Carbon Dioxide 25.4 mmol/L (21.6-31.8); Chloride 104 mmol/L (96-109); Glucose 72 mg/dL (70-110); Potassium 5.1 mmol/L (3.5-5.5); Sodium 139 mmol/L (135-145)
[2023-10-26 11:10] LABS: Basophils # (A) 0.07 X 10*3/uL (0.00-0.10); Basophils % (A) 0.8 %; Eosinophils # (A) 0.34 X 10*3/uL (0.04-0.35); HCT 26.3 % (39.6-50.0); HGB 7.7 g/dL (13.0-17.0); Lymphocytes % (A) 27.2 %; MCH 23.9 pg (27.0-32.0); MCHC 29.3 g/dL (32.0-37.0); MCV 81.7 FL (80.0-97.0); Monocytes # (A) 0.55 X 10*3/uL (0.20-1.00); Monocytes % (A) 6.5 %; NRBC Per 100 WBC 0 X 10*3/uL (0.00-0.01); Neutrophils # (A) 5.14 X 10*3/uL (1.80-7.70); Neutrophils % (A) 60.7 %; Platelet Count 1106 X 10*3/uL (140-440); RBC 3.22 X 10*6/uL (4.40-5.60); RDW 18.1 % (11.5-14.5); WBC 8.47 X 10*3/uL (4.50-10.00)
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
--- NOTE | 2023-10-26 18:06 | P.PN ---
Subjective Patient PEG tube did fall out, did not a calorie count over the weekend which showed poor oral intake. Denies any abdominal pain, flank pain. Urine in the catheter is clear Objective - Vital Signs Vital signs: Vital Signs Temp 98.8 F 10/26/23 13:29 Pulse 96 10/26/23 13:29 Resp 17 10/26/23 13:29 BP 113/76 10/26/23 13:29 Pulse Ox 90 L 10/26/23 13:29 FiO2 Intake & Output 10/25/23 10/26/23 10/26/23 18:59 06:59 18:59 Output Total 700 Balance -700 Weight 80.29 kg Output: Urine 700 Other: Voiding Method Indwelling Catheter Indwelling Catheter Indwelling Catheter - Constitutional General appearance: Present: no acute distress - Gastrointestinal General gastrointestinal: Present: soft. Absent: distended, tenderness - Labs CBC & Chem 7: 10/26/23 07:31 10/26/23 07:31 Labs: Abnormal Lab Results - Last 24 Hours (Table) 10/26/23 10/26/23 Range/Units 07:31 07:31 RBC 3.22 L (4.40-5.60) X 10*6/uL Hgb 7.7 L (13.0-17.0) g/dL Hct 26.3 L (39.6-50.0) % MCH 23.9 L (27.0-32.0) pg MCHC 29.3 L (32.0-37.0) g/dL RDW 18.1 H (11.5-14.5) % Plt Count 1106 A* (140-440) X 10*3/uL MPV 9.0 L (9.5-12.2) FL Immature Gran # 0.07 H (0.00-0.04) X 10*3/uL BUN 5.7 L (9.0-27.0) mg/dL BUN/Creatinine Ratio 5.18 L (12.00-20.00) Ratio Calcium 8.5 L (8.7-10.3) mg/dL Microbiology - Last 24 Hours (Table) 10/20/23 11:46 Blood Culture - Final Blood Assessment and Plan Assessment: Postop day #12 status post right open nephrectomy by Dr. Flannery, post course complicated by a postoperative ileus, which has now resolved. Patient had PEG tube that fell out during the hospital admission, had a calorie count which showed poor oral intake. At this point plan from general surgery is for PEG tube reinsertion -He is okay for discharge from urology standpoint, awaiting clearance for discharge from general surgery
[2023-10-27 08:51] LABS: Basophils % (A) 1.2 %; Eosinophils # (A) 0.33 X 10*3/uL (0.04-0.35); Eosinophils % (A) 3.8 %; HGB 8.6 g/dL (13.0-17.0); Lymphocytes # (A) 2.05 X 10*3/uL (0.90-5.00); Lymphocytes % (A) 23.7 %; MCH 24.2 pg (27.0-32.0); MCHC 29.7 g/dL (32.0-37.0); MCV 81.5 FL (80.0-97.0); Mean Platelet Volume 9.1 FL (9.5-12.2); Monocytes # (A) 0.67 X 10*3/uL (0.20-1.00); Monocytes % (A) 7.7 %; NRBC Per 100 WBC 0 X 10*3/uL (0.00-0.01); Neutrophils # (A) 5.43 X 10*3/uL (1.80-7.70); Neutrophils % (A) 62.7 %; Platelet Count 1184 X 10*3/uL (140-440); RBC 3.56 X 10*6/uL (4.40-5.60); RDW 18.2 % (11.5-14.5); WBC 8.66 X 10*3/uL (4.50-10.00)
--- NOTE | 2023-10-27 10:07 | P.PN ---
Subjective Progress Note Date: 10/27/23 Principal diagnosis: Right renal mass The patient underwent a right nephrectomy on October 14, 2023 for right renal mass. Pathology showed no evidence of malignancy. He has recovered well from surgery. He is to undergo replacement of his PEG feeding tube. Objective - Vital Signs Vital signs: Vital Signs Temp 99.5 F 10/27/23 07:22 Pulse 89 10/27/23 07:22 Resp 16 10/27/23 07:22 BP 101/67 10/27/23 07:22 Pulse Ox 92 L 10/27/23 07:22 FiO2 Intake & Output 10/26/23 10/27/23 10/27/23 18:59 06:59 18:59 Output Total 1300 700 Balance -1300 -700 Weight 80.29 kg Output: Urine 1300 700 Other: Voiding Method Indwelling Catheter Indwelling Catheter - Constitutional General appearance: Present: average body habitus, no acute distress - Gastrointestinal Gastrointestinal Comment(s): Soft, non-distended, non-tender. Right subcostal incision is healing well. - Labs CBC & Chem 7: 10/27/23 04:55 10/26/23 07:31 Labs: Abnormal Lab Results - Last 24 Hours (Table) 10/26/23 10/26/23 10/27/23 Range/Units 07:31 07:31 04:55 RBC 3.22 L 3.56 L (4.40-5.60) X 10*6/uL Hgb 7.7 L 8.6 L (13.0-17.0) g/dL Hct 26.3 L 29.0 L (39.6-50.0) % MCH 23.9 L 24.2 L (27.0-32.0) pg MCHC 29.3 L 29.7 L (32.0-37.0) g/dL RDW 18.1 H 18.2 H (11.5-14.5) % Plt Count 1106 A* 1184 A* (140-440) X 10*3/uL MPV 9.0 L 9.1 L (9.5-12.2) FL Immature Gran # 0.07 H 0.08 H (0.00-0.04) X 10*3/uL BUN 5.7 L (9.0-27.0) mg/dL BUN/Creatinine Ratio 5.18 L (12.00-20.00) Ratio Calcium 8.5 L (8.7-10.3) mg/dL Microbiology - Last 24 Hours (Table) 10/21/23 15:06 Blood Culture - Final Blood Assessment and Plan Plan: The patient is urologically stable for discharge. Surgical noel will be removed today, and Steri-Strips applied. The patient has an indwelling De La Vega catheter, which is draining clear yellow urine. He is currently receiving tamsulosin, which is unnecessary if this is a chronic indwelling catheter. However, the status of the catheter is unknown and it would be reasonable to consider De La Vega catheter removal for a voiding trial while he is hospitalized. Please notify us if we can be of any further assistance.
[2023-10-27 12:11] LABS: BUN/Creat Ratio 4.92 Ratio (12.00-20.00); Blood Urea Nitrogen 5.9 mg/dL (9.0-27.0); Calcium 8.7 mg/dL (8.7-10.3); Carbon Dioxide 21.2 mmol/L (21.6-31.8); Chloride 103 mmol/L (96-109); Glucose 87 mg/dL (70-110); Potassium 4.6 mmol/L (3.5-5.5); Sodium 139 mmol/L (135-145)
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
[2023-10-27] MEDS: AMOXIC-POT CLAV 875-125MG 1 EACH TAB PO SCH (23:58)
[2023-10-28 04:45] LABS: Anisocytosis Slight; HCT 30.6 % (39.0-53.0); Hypochromasia Marked; MCH 24.5 pg (25.0-35.0); MCHC 29.3 g/dL (31.0-37.0); MCV 83.5 fL (80.0-100.0); Mean Platelet Volume 7.4; Poikilocytosis Slight; RBC 3.67 m/uL (4.30-5.90); RDW 17.7 % (11.5-15.5); WBC 9.6 k/uL (3.8-10.6)
[2023-10-28 04:51] LABS: Platelet Count 1152 k/uL (150-450)
[2023-10-28 05:09] LABS: African American GFR (CKD) >90 (>60 ml/min/1.73 sqM); Anion Gap 8 mmol/L; Blood Urea Nitrogen 9 mg/dL (9-20); Calcium 9.1 mg/dL (8.4-10.2); Carbon Dioxide 24 mmol/L (22-30); Chloride 105 mmol/L (98-107); Glucose 81 mg/dL (74-99); Non-African American GFR(CKD) 88 (>60 ml/min/1.73 sqM); Potassium 5.4 mmol/L (3.5-5.1); Sodium 137 mmol/L (137-145)
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
[2023-10-28] MEDS: DEXTROSE 50% SYRINGE 50 ML IVP STA (15:57)
[2023-10-28] MEDS: INSULIN REGULAR 100 UNIT/ML VIAL (IV) IV ONE (15:57)
[2023-10-28] MEDS: CALCIUM GLUCONATE IN NACL 1 GM in SALINE 1 100ML.BAG IVPB ONE (15:57)
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
[2023-10-29] MEDS ORDERED: LIDOCAINE 1% INJ 10MG/ML (20 ML MDV) ONE (08:18)
[2023-10-29] MEDS ORDERED: PROPOFOL 10 MG/ML 20 ML VIAL IV ONE (08:18)
[2023-10-29] MEDS: SODIUM CHLORIDE 0.9% 500 ML 500 ML IV ONE (08:45)
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
[2023-10-30 07:48] VITALS: RESP 20
--- NOTE | 2023-10-30 14:31 | P.PN ---
Subjective Progress Note Date: 10/30/23 CHIEF COMPLAINT: Ileus HISTORY OF PRESENT ILLNESS: The patient is a 43-year-old male admitted 10/14/2023 for right renal cell cancer. Patient had a postoperative ileus which has resolved. patient pulled out his PEG tube. He is status post PEG tube replacement yesterday. EGD had shown gastric ulcerand gastritis with bleeding PHYSICAL EXAM: VITAL SIGNS: Reviewed GENERAL: Well-developed in no acute distress. HEENT: No sclera icterus. Extraocular movements grossly intact. Moist buccal mucosa. Head is atraumatic, normocephalic. Hears conversational speech. No nasal drainage. NECK: Supple without lymphadenopathy. CHEST: Non-labored respirations and equal bilateral excursions. CARDIOVASCULAR: Palpable 2+ radial pulses. ABDOMEN: Soft. Nondistended. Abdominal binder in place MUSCULOSKELETAL: No clubbing or cyanosis. NEUROLOGIC: No focal or lateralizing signs. Cranial nerves II through XII grossly intact. PSYCH: Appropriate affect. Alert and oriented to person, place and time. SKIN: Well perfused. Good skin turgor. ASSESSMENT: 1. Postsurgical ileus, resolved 2. Leukocytosis 3. Acute blood loss anemia 4. Thrombocytosis 5. Right renal cell cancer status post open nephrectomy 6. Traumatic brain injury 7. Seizure disorder 8. Gastrostomy tube status 9. Hyponatremia improved 10. Status post EGD revealing gastric ulcer and gastritis with bleeding PLAN: -patient status post PEG tube replacement. Consult dietitian to initiate tube feeds. Requesting bolus feeds for patient due to patient pulling at his tubing. -continue Protonix -repeat CBC -continue pureed Diet Physician Conditioner Tumbler Operator note has been reviewed by physician. Signing provider agrees with the documented findings, assessment, and plan of care. Objective - Vital Signs Vital signs: Vital Signs Temp 98.9 F 10/30/23 07:20 Pulse 111 H 10/30/23 07:45 Resp 20 10/30/23 07:45 BP 131/74 10/30/23 07:20 Pulse Ox 95 10/30/23 07:20 FiO2 Intake & Output 10/29/23 10/30/23 10/30/23 18:59 06:59 18:59 Intake Total 1020 Output Total 600 200 Balance 420 -200 Weight 80.29 kg Intake: IV 300 Tube Feeding 720 Output: Urine 600 200 Uretheral (De La Vega) 200 Other: Voiding Method Indwelling Catheter Indwelling Catheter Indwelling Catheter - Labs CBC & Chem 7: 10/28/23 03:51 10/29/23 00:41
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
[2023-10-30 14:43] VITALS: BP 108/72; PULSE 96; TEMP 99.5
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
== END 2023-10-30 17:44 | DRG 659 ==
LOC: 2ORMAIN 06:15 → 4SSUR 12:47
PROVIDERS: ADMIT Hospitalist; ATTEND Hospitalist
PROC: 0TT00ZZ Resection of Right Kidney, Open Approach (ICD-10-PCS; principal; 2023-10-14 08:15)
PROC: 05HF33Z Insertion of Infusion Device into Left Cephalic Vein, Percutaneous Approach (ICD-10-PCS; 2023-10-20)
PROC: 05HF33Z Insertion of Infusion Device into Left Cephalic Vein, Percutaneous Approach (ICD-10-PCS; 2023-10-27)
PROC: 0DH63UZ Insertion of Feeding Device into Stomach, Percutaneous Approach (ICD-10-PCS; 2023-10-29)
PROC: 3E0G76Z Introduction of Nutritional Substance into Upper GI, Via Natural or Artificial Opening (ICD-10-PCS; 2023-10-29)
DX: T83.511A Infection and inflammatory reaction due to indwelling urethral catheter, initial encounter (principal); B37.7 Candidal sepsis; E43 Unspecified severe protein-calorie malnutrition; K22.11 Ulcer of esophagus with bleeding; K25.4 Chronic or unspecified gastric ulcer with hemorrhage; C64.1 Malignant neoplasm of right kidney, except renal pelvis; D62 Acute posthemorrhagic anemia; G81.91 Hemiplegia, unspecified affecting right dominant side; J98.11 Atelectasis; N18.4 Chronic kidney disease, stage 4 (severe); E87.1 Hypo-osmolality and hyponatremia; K56.7 Ileus, unspecified; Z43.1 Encounter for attention to gastrostomy; B37.49 Other urogenital candidiasis; N39.0 Urinary tract infection, site not specified; T85.79XA Infection and inflammatory reaction due to other internal prosthetic devices, implants and grafts, initial encounter; G40.909 Epilepsy, unspecified, not intractable, without status epilepticus; I12.9 Hypertensive chronic kidney disease with stage 1 through stage 4 chronic kidney disease, or unspecified chronic kidney disease; L89.152 Pressure ulcer of sacral region, stage 2; Y79.2 Prosthetic and other implants, materials and accessory orthopedic devices associated with adverse incidents; D75.839 Thrombocytosis, unspecified; F32.A Depression, unspecified; F41.9 Anxiety disorder, unspecified; K21.9 Gastro-esophageal reflux disease without esophagitis; G83.9 Paralytic syndrome, unspecified; E55.9 Vitamin D deficiency, unspecified; K62.89 Other specified diseases of anus and rectum; R50.82 Postprocedural fever; Y84.6 Urinary catheterization as the cause of abnormal reaction of the patient, or of later complication, without mention of misadventure at the time of the procedure; Z74.01 Bed confinement status; Z79.899 Other long term (current) drug therapy; Z68.28 Body mass index [BMI] 28.0-28.9, adult; Z82.49 Family history of ischemic heart disease and other diseases of the circulatory system; Z87.01 Personal history of pneumonia (recurrent); Z87.440 Personal history of urinary (tract) infections; Z87.442 Personal history of urinary calculi; Z87.820 Personal history of traumatic brain injury; Z98.2 Presence of cerebrospinal fluid drainage device; Z99.3 Dependence on wheelchair; Z88.8 Allergy status to other drugs, medicaments and biological substances; R13.10 Dysphagia, unspecified; Z53.8 Procedure and treatment not carried out for other reasons; Z87.19 Personal history of other diseases of the digestive system
CPT/HCPCS: 36410; 43246; 71045; 74018; 74177; 76937; 80048; 80053; 81001; 83605; 83735; 84132; 84145; 85025; 85027; 86140; 86850; 86900; 86901; 87040; 87086; 88307; 94640; 94760

== ENCOUNTER 2024-02-18 00:20 | Inpatient (IN) | payer MEDICARE, BC ==
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
[2024-02-18] MEDS: SODIUM CHLORIDE 0.9% 1,000 ML IV SCH (02:51)
[2024-02-18] MEDS: PIPERACILLIN-TAZOBACTAM 3.375 GM in SODIUM CHLORIDE 0.9% 100 ML IVPB STA (02:52)
[2024-02-18] MEDS ORDERED: NALOXONE 0.4 MG/ML 1 ML VIAL IV PRN (05:06)
[2024-02-18 05:56] LABS: Appearance,Urine Cloudy (Clear); Bacteria,Urine Rare /hpf; Bilirubin,Urine Negative (Negative); Blood,Urine Trace (Negative); Color,Urine Yellow; Glucose,Urine (UA) Negative (Negative); Ketones,Urine Negative (Negative); Leukocyte Esterase,Urine Large (Negative); Mucus,Urine Rare /hpf; Nitrite,Urine Negative (Negative); Protein,Urine 1+ (Negative); RBC,Urine 8 /hpf (0-5); Specific Gravity,Urine 1.029 (1.001-1.035); WBC,Urine 95 /hpf (0-5)
[2024-02-18 07:09] LABS: Anisocytosis Slight; Basophils % (A) 0 %; Eosinophils # (A) 0.2 k/uL (0-0.7); Eosinophils % (A) 0 %; HCT 32.5 % (39.0-53.0); HGB 9.7 gm/dL (13.0-17.5); Hypochromasia Marked; Lymphocytes % (A) 3 %; MCH 20.5 pg (25.0-35.0); MCHC 29.8 g/dL (31.0-37.0); MCV 68.7 fL (80.0-100.0); Mean Platelet Volume 6.1; Microcytosis Marked; Monocytes # (A) 1.7 k/uL (0-1.0); Monocytes % (A) 4 %; Neutrophils # (A) 35.7 k/uL (1.3-7.7); Neutrophils % (A) 91 %; Platelet Count 638 k/uL (150-450); Poikilocytosis Slight; RBC 4.73 m/uL (4.30-5.90); RDW 18.2 % (11.5-15.5); WBC 39.1 k/uL (3.8-10.6)
[2024-02-18 07:23] LABS: ALT 102 U/L (4-49); AST 35 U/L (17-59); African American GFR (CKD) >90 (>60 ml/min/1.73 sqM); Albumin 2.9 g/dL (3.5-5.0); Alkaline Phosphatase 311 U/L (38-126); Anion Gap 9 mmol/L; Blood Urea Nitrogen 18 mg/dL (9-20); Calcium 7.9 mg/dL (8.4-10.2); Carbon Dioxide 23 mmol/L (22-30); Chloride 100 mmol/L (98-107); Glucose 124 mg/dL (74-99); Lipase 15 U/L (23-300); Non-African American GFR(CKD) >90 (>60 ml/min/1.73 sqM); Potassium 4.6 mmol/L (3.5-5.1); Sodium 132 mmol/L (137-145); Total Protein 6.1 g/dL (6.3-8.2)
[2024-02-18] MEDS: PIPERACILLIN-TAZOBACTAM 3.375 GM in SODIUM CHLORIDE 0.9% 100 ML IVPB SCH (08:48)
--- NOTE | 2024-02-18 09:00 | US ---
EXAMINATION TYPE: US gallbladder DATE OF EXAM: 02/18/2024 COMPARISON: Outside CT CLINICAL INDICATION: Male, 43 years old with history of RUQ pain, Elevated WBC; Abnormal CT TECHNIQUE: Grayscale imaging of the right upper quadrant was performed. FINDINGS: EXAM MEASUREMENTS: Liver Length: 13.4 cm Gallbladder Wall: 0.4 cm CBD: 0.5 cm Right Kidney: Surgically absent SURGICAL SERVICES ASST NOTES: Extremely limited exam- pt gassy, very uncooperative due to altered mental sta tus- trying to grab probe from tech during exam Pancreas: Obscured by bowel gas Liver: Left lobe not visualized, limited views of right lobe appeared wnl Gallbladder: Distended with echogenic foci with shadowing at neck, pt unable to roll LLD, wall thick ened, possible pericholecystic fluid Evidence for sonographic Hooker's sign: No CBD: wnl Right Kidney: Surgically absent IMPRESSION: 1. Debris within the gallbladder. Some wall thickening may be present. Pericholecystic fluid may be p resent. Correlation for acute cholecystitis. [facility], , 02/18/2024 8:58 AM
[2024-02-18] MEDS: ACETAMINOPHEN IV (For NPO) 1,000 MG in EMPTY BAG 1 BAG IVPB STA (12:22)
[2024-02-18] MEDS ORDERED: IBUPROFEN 400 MG TAB PEG/G-TUBE PRN (12:40)
[2024-02-18] MEDS ORDERED: ACETAMINOPHEN TAB 325 MG TAB PEG/G-TUBE PRN (12:40)
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
--- NOTE | 2024-02-18 14:18 | XR ---
EXAMINATION TYPE: XR chest 2V DATE OF EXAM: 02/18/2024 1:39 PM COMPARISON: None. CLINICAL INDICATION: Male, 43 years old with history of pneumonia, TECHNIQUE: XR chest 2V view(s) obtained. FINDINGS: The heart size is normal. The pulmonary vasculature is normal. The lungs are clear. There is chronic elevation right diaphragm. Catheter overlies the right chest. IMPRESSION: 1. No acute pulmonary process. [facility], , 02/18/2024 2:16 PM
[2024-02-18] MEDS: lamoTRIgine 100 MG TAB PEG/G-TUBE SCH (14:41)
[2024-02-18] MEDS: busPIRone HCl 10 MG TAB PEG/G-TUBE SCH (14:41)
[2024-02-18] MEDS: OXcarbazepine 300MG/5ML SUSP 15,000 MG/250 ML BOTTLE PEG/G-TUBE SCH (14:42)
[2024-02-18] MEDS: KETOROLAC 15 MG/ML 1 ML VIAL IVP PRN (15:53)
[2024-02-18] MEDS: clonazePAM 0.5 MG TAB PO SCH (15:53)
[2024-02-18 17:05] LABS: INR 1.2 (<1.2)
[2024-02-18 17:06] LABS: Prothrombin Time 12.3 sec (10.0-12.5)
--- NOTE | 2024-02-18 17:10 | CA ---
Transthoracic Echo Report Name: Yung Borrero Age: 43 Gender: M : 1980 Exam Date: 02/18/2024 14:06 Exam Location: [facility] Ht (in): 62 Wt (lb): 171 Ordering Physician: Mellissa Nettles Attending/Referring Phys: [id number], Yoon Farmworker Machine Poppy Sloan RDCS Procedure CPT: Indications: LV function Cardiac Hx: Technical Quality: Fair Contrast 1: Total Dose (mL): Contrast 2: Total Dose (mL): MEASUREMENTS (Male / Female) Normal Values 2D ECHO LV Diastolic Diameter PLAX 3.9 cm 4.2 - 5.9 / 3.9 - 5.3 cm LV Systolic Diameter PLAX 2.0 cm IVS Diastolic Thickness 1.5 cm 0.6 - 1.0 / 0.6 - 0.9 cm LVPW Diastolic Thickness 1.8 cm 0.6 - 1.0 / 0.6 - 0.9 cm LV Relative Wall Thickness 0.8 RV Internal Dim ED PLAX 2.8 cm LA Volume 22.2 cm??? 18 - 58 / 22 - 52 cm??? LA Volume Index 11.8 cm???/m??? 16 - 28 cm???/m??? M-MODE Aortic Root Diameter MM 3.6 cm LA Systolic Diameter MM 3.2 cm LA Ao Ratio MM 0.9 AV Cusp Separation MM 2.0 cm DOPPLER AV Peak Velocity 108.6 cm/s AV Peak Gradient 4.7 mmHg AV Mean Velocity 81.9 cm/s AV Mean Gradient 2.8 mmHg AV Velocity Time Integral 16.5 cm LVOT Peak Velocity 92.8 cm/s LVOT Peak Gradient 3.4 mmHg LVOT Velocity Time Integral 16.3 cm MV Area PHT 5.6 cm??? Mitral E Point Velocity 56.8 cm/s Mitral A Point Velocity 90.4 cm/s Mitral E to A Ratio 0.6 MV Deceleration Time 134.8 ms MV E' Velocity 7.8 cm/s Mitral E to MV E' Ratio 7.3 FINDINGS Left Ventricle Moderately increased left ventricular wall thickness. Left ventricular cavity size normal. Normal left ventricular systolic function with no obvious regional wall motion abnormalities. Left ventricular ejection fraction is estimated at 55-60 %. Grade 1 diastolic dysfunction. Right Ventricle . Hypokinetic right ventricular free wall. Right ventricular systolic pressure within normal limits. Prominent moderator band in right ventricle (normal variant). Right Atrium Normal right atrial size. Left Atrium Normal left atrial size. Mitral Valve Structurally normal mitral valve. No mitral stenosis, regurgitation or prolapse. Aortic Valve No aortic valve stenosis or regurgitation. Tricuspid Valve Structurally normal tricuspid valve. Mild tricuspid regurgitation. Pulmonic Valve Structurally normal pulmonic valve. Pericardium No pericardial effusion. Aorta Normal size aortic root and proximal ascending aorta. CONCLUSIONS Normal LV systolic function Right ventricle appears mildly enlarged with RV systolic dysfunction Previewed by: Dr. Willaim Garvin MD (Electronically Signed) Final Date: 18 February 2024 17:10
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
[2024-02-18] MEDS ORDERED: [UNRECOGNIZED DRUG - OTHER] PEG/G-TUBE SCH (21:00)
[2024-02-18] MEDS: LACTULOSE 20 GM/30 ML CUP PEG/G-TUBE SCH (22:06)
[2024-02-18] MEDS: METOPROLOL TARTRATE 25 MG TAB PEG/G-TUBE SCH (22:06)
[2024-02-19] MEDS: LEVOTHYROXINE 50 MCG TAB PEG/G-TUBE SCH (06:06)
[2024-02-19] MEDS: lamoTRIgine 25 MG TAB PEG/G-TUBE SCH (06:06)
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
[2024-02-19] MEDS: ASPIRIN 81 MG PEG/G-TUBE SCH (08:53)
[2024-02-19] MEDS: TAMSULOSIN 0.4 MG CAP.ER.24H PO SCH (09:03)
[2024-02-19 09:31] LABS: HCT 29.7 % (39.6-50.0); HGB 8.8 g/dL (13.0-17.0); MCH 20.9 pg (27.0-32.0); MCHC 29.6 g/dL (32.0-37.0); MCV 70.5 FL (80.0-97.0); Mean Platelet Volume 9.1 FL (9.5-12.2); NRBC Per 100 WBC 0 X 10*3/uL (0.00-0.01); Platelet Count 611 X 10*3/uL (140-440); RBC 4.21 X 10*6/uL (4.40-5.60); RDW 19.9 % (11.5-14.5); WBC 25.36 X 10*3/uL (4.50-10.00)
[2024-02-19 09:36] LABS: ALT 84 U/L (10-49); AST 57 U/L (14-35); Albumin 2.9 g/dL (3.8-4.9); Albumin/Globulin Ratio 0.97 Ratio (1.60-3.17); Alkaline Phosphatase 318 U/L (41-126); Blood Urea Nitrogen 23.1 mg/dL (9.0-27.0); Calcium 7.9 mg/dL (8.7-10.3); Carbon Dioxide 20.6 mmol/L (21.6-31.8); Chloride 100 mmol/L (96-109); Glucose 95 mg/dL (70-110); Magnesium 2.1 mg/dL (1.5-2.4); Potassium 4.8 mmol/L (3.5-5.5); Sodium 133 mmol/L (135-145); Total Bilirubin 0.8 mg/dL (0.3-1.2); Total Protein 5.9 g/dL (6.2-8.2)
[2024-02-19 09:57] LABS: Basophils # (A) 0.04 X 10*3/uL (0.00-0.10); Basophils % (A) 0.2 %; Eosinophils # (A) 0.15 X 10*3/uL (0.04-0.35); Eosinophils % (A) 0.6 %; Lymphocytes # (A) 1.31 X 10*3/uL (0.90-5.00); Lymphocytes % (A) 5.2 %; Monocytes # (A) 1.78 X 10*3/uL (0.20-1.00); Neutrophils # (A) 21.89 X 10*3/uL (1.80-7.70); Neutrophils % (A) 86.3 %
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
[2024-02-19 12:43] LABS: Glucose,Whole Blood 105 mg/dL (70-110)
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
[2024-02-19 17:23] LABS: Glucose,Whole Blood 108 mg/dL (70-110)
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
[2024-02-20 00:04] LABS: Glucose,Whole Blood 109 mg/dL (70-110)
[2024-02-20 05:49] LABS: Glucose,Whole Blood 118 mg/dL (70-110)
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
[2024-02-20 08:34] LABS: Anisocytosis Slight; Basophils % (A) 0 %; Eosinophils # (A) 0.2 k/uL (0-0.7); Eosinophils % (A) 1 %; HCT 25.4 % (39.0-53.0); Hypochromasia Marked; Lymphocytes # (A) 1.3 k/uL (1.0-4.8); Lymphocytes % (A) 8 %; MCHC 29.7 g/dL (31.0-37.0); MCV 70.6 fL (80.0-100.0); Mean Platelet Volume 6.3; Microcytosis Marked; Monocytes # (A) 0.8 k/uL (0-1.0); Monocytes % (A) 5 %; Neutrophils # (A) 13.3 k/uL (1.3-7.7); Neutrophils % (A) 84 %; Platelet Count 605 k/uL (150-450); Poikilocytosis Slight; RDW 18.3 % (11.5-15.5); WBC 15.8 k/uL (3.8-10.6)
[2024-02-20 08:42] LABS: ALT 67 U/L (4-49); AST 43 U/L (17-59); African American GFR (CKD) >90 (>60 ml/min/1.73 sqM); Albumin 2.5 g/dL (3.5-5.0); Albumin/Globulin Ratio 0.9; Alkaline Phosphatase 391 U/L (38-126); Anion Gap 8 mmol/L; Blood Urea Nitrogen 15 mg/dL (9-20); Calcium 7.9 mg/dL (8.4-10.2); Carbon Dioxide 22 mmol/L (22-30); Chloride 106 mmol/L (98-107); Globulin 2.9 g/dL; Glucose 115 mg/dL (74-99); Magnesium 2.1 mg/dL (1.6-2.3); Non-African American GFR(CKD) >90 (>60 ml/min/1.73 sqM); Potassium 4.1 mmol/L (3.5-5.1); Sodium 136 mmol/L (137-145); Total Bilirubin 0.5 mg/dL (0.2-1.3); Total Protein 5.4 g/dL (6.3-8.2)
[2024-02-20 08:43] LABS: HGB 7.6 gm/dL (13.0-17.5)
--- NOTE | 2024-02-20 09:30 | P.PN ---
Subjective Progress Note Date: 02/20/24 Principal diagnosis: Acute cholecystitis Patient seems to be at cognitive baseline. Appears comfortable. He was tachycardic overnight with low-grade temp 99.7. White blood cell count improved at 15.8, hemoglobin 7.6. LFTs slowly improving. Tolerating tube feeds. Objective - Vital Signs Vital signs: Vital Signs Temp 99.5 F 02/20/24 07:08 Pulse 122 H 02/20/24 07:08 Resp 18 02/20/24 07:08 BP 128/75 02/20/24 07:08 Pulse Ox 90 L 02/20/24 07:08 FiO2 Intake & Output 02/19/24 02/20/24 02/20/24 18:59 06:59 18:59 Intake Total 209 Output Total 550 900 Balance -550 -691 Weight 63.5 kg 56 kg Intake: Tube Feeding 149 Other 60 Output: Urine 550 900 Other: Voiding Method Indwelling Catheter Indwelling Catheter - Exam Abdomen: Soft, nondistended, right upper quadrant tenderness slightly improved from initial presentation - Labs CBC & Chem 7: 02/20/24 07:58 02/20/24 07:58 Labs: Abnormal Lab Results - Last 24 Hours (Table) 02/19/24 02/19/24 02/20/24 Range/Units 05:52 05:52 05:48 WBC 25.36 H (4.50-10.00) X 10*3/uL RBC 4.21 L (4.40-5.60) X 10*6/uL Hgb 8.8 L (13.0-17.0) g/dL Hct 29.7 L (39.6-50.0) % MCV 70.5 L (80.0-97.0) FL MCH 20.9 L (27.0-32.0) pg MCHC 29.6 L (32.0-37.0) g/dL RDW 19.9 H (11.5-14.5) % Plt Count 611 H (140-440) X 10*3/uL MPV 9.1 L (9.5-12.2) FL Immature Gran # 0.19 H (0.00-0.04) X 10*3/uL Neutrophils # 21.89 H (1.80-7.70) X 10*3/uL Monocytes # 1.78 H (0.20-1.00) X 10*3/uL Sodium 133 L (135-145) mmol/L Carbon Dioxide 20.6 L (21.6-31.8) mmol/L Anion Gap 12.40 H (4.00-12.00) mmol/L BUN/Creatinine Ratio 21.00 H (12.00-20.00) Ratio Glucose (74-99) mg/dL POC Glucose (mg/dL) 118 H (70-110) mg/dL Calcium 7.9 L (8.7-10.3) mg/dL AST 57 H (14-35) U/L ALT 84 H (10-49) U/L Alkaline Phosphatase 318 H (41-126) U/L Total Protein 5.9 L (6.2-8.2) g/dL Albumin 2.9 L (3.8-4.9) g/dL Albumin/Globulin Ratio 0.97 L (1.60-3.17) Ratio 02/20/24 02/20/24 Range/Units 07:58 07:58 WBC 15.8 H (4.50-10.00) X 10*3/uL RBC 3.60 L (4.40-5.60) X 10*6/uL Hgb 7.6 L D (13.0-17.0) g/dL Hct 25.4 L (39.6-50.0) % MCV 70.6 L (80.0-97.0) FL MCH 21.0 L (27.0-32.0) pg MCHC 29.7 L (32.0-37.0) g/dL RDW 18.3 H (11.5-14.5) % Plt Count 605 H (140-440) X 10*3/uL MPV (9.5-12.2) FL Immature Gran # (0.00-0.04) X 10*3/uL Neutrophils # 13.3 H (1.80-7.70) X 10*3/uL Monocytes # (0.20-1.00) X 10*3/uL Sodium 136 L (135-145) mmol/L Carbon Dioxide (21.6-31.8) mmol/L Anion Gap (4.00-12.00) mmol/L BUN/Creatinine Ratio (12.00-20.00) Ratio Glucose 115 H (74-99) mg/dL POC Glucose (mg/dL) (70-110) mg/dL Calcium 7.9 L (8.7-10.3) mg/dL AST (14-35) U/L ALT 67 H (10-49) U/L Alkaline Phosphatase 391 H (41-126) U/L Total Protein 5.4 L (6.2-8.2) g/dL Albumin 2.5 L (3.8-4.9) g/dL Albumin/Globulin Ratio (1.60-3.17) Ratio Microbiology - Last 24 Hours (Table) 02/18/24 05:40 Urine Culture - Final Urine,Voided Assessment and Plan (1) Acute cholecystitis Narrative/Plan: 43-year-old male with acute cholecystitis. Continue tube feeds. Continue antibiotics. Cholecystectomy planned for Thursday. Current Visit: Yes Status: Acute Code(s): K81.0 - ACUTE CHOLECYSTITIS SNOMED Code(s): 77548474
[2024-02-20 12:16] LABS: Glucose,Whole Blood 144 mg/dL (70-110)
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
[2024-02-20 17:10] LABS: Glucose,Whole Blood 125 mg/dL (70-110)
[2024-02-21 00:16] LABS: Glucose,Whole Blood 130 mg/dL (70-110)
[2024-02-21 05:46] LABS: Glucose,Whole Blood 136 mg/dL (70-110)
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
[2024-02-21 10:15] LABS: Basophils # (A) 0.05 X 10*3/uL (0.00-0.10); Basophils % (A) 0.4 %; Eosinophils # (A) 0.43 X 10*3/uL (0.04-0.35); Eosinophils % (A) 3.1 %; HGB 7.1 g/dL (13.0-17.0); Lymphocytes # (A) 1.67 X 10*3/uL (0.90-5.00); Lymphocytes % (A) 12.1 %; MCH 20.3 pg (27.0-32.0); MCHC 29.6 g/dL (32.0-37.0); MCV 68.6 FL (80.0-97.0); Monocytes # (A) 1.11 X 10*3/uL (0.20-1.00); NRBC Per 100 WBC 0 X 10*3/uL (0.00-0.01); Neutrophils # (A) 10.38 X 10*3/uL (1.80-7.70); Platelet Count 653 X 10*3/uL (140-440); RDW 19.5 % (11.5-14.5); WBC 13.83 X 10*3/uL (4.50-10.00)
--- NOTE | 2024-02-21 10:26 | P.PN ---
Subjective Progress Note Date: 02/21/24 Principal diagnosis: Acute cholecystitis Patient appears comfortable today. No obvious discomforts. Tolerating tube feeds at this time. Labs noted. Objective - Vital Signs Vital signs: Vital Signs Temp 99 F 02/21/24 08:00 Pulse 107 H 02/21/24 08:00 Resp 17 02/21/24 08:00 BP 140/82 02/21/24 08:00 Pulse Ox 92 L 02/21/24 08:00 FiO2 Intake & Output 02/20/24 02/21/24 02/21/24 18:59 06:59 18:59 Intake Total 624 Output Total 300 800 Balance -300 -176 Weight 59 kg Intake: Tube Feeding 624 Output: Urine 300 800 Other: Voiding Method Indwelling Catheter Indwelling Catheter # Bowel Movements 1 - Exam Abdomen: Soft, nondistended, right upper quadrant tenderness slightly improved from initial presentation - Labs CBC & Chem 7: 02/21/24 05:53 02/20/24 07:58 Labs: Abnormal Lab Results - Last 24 Hours (Table) 02/20/24 02/20/24 02/21/24 Range/Units 12:05 17:04 00:14 WBC (4.50-10.00) X 10*3/uL RBC (4.40-5.60) X 10*6/uL Hgb (13.0-17.0) g/dL Hct (39.6-50.0) % MCV (80.0-97.0) FL MCH (27.0-32.0) pg MCHC (32.0-37.0) g/dL RDW (11.5-14.5) % Plt Count (140-440) X 10*3/uL MPV (9.5-12.2) FL Immature Gran # (0.00-0.04) X 10*3/uL Neutrophils # (1.80-7.70) X 10*3/uL Monocytes # (0.20-1.00) X 10*3/uL Eosinophils # (0.04-0.35) X 10*3/uL POC Glucose (mg/dL) 144 H 125 H 130 H (70-110) mg/dL 02/21/24 02/21/24 Range/Units 05:42 05:53 WBC 13.83 H (4.50-10.00) X 10*3/uL RBC 3.50 L (4.40-5.60) X 10*6/uL Hgb 7.1 L (13.0-17.0) g/dL Hct 24.0 L (39.6-50.0) % MCV 68.6 L (80.0-97.0) FL MCH 20.3 L (27.0-32.0) pg MCHC 29.6 L (32.0-37.0) g/dL RDW 19.5 H (11.5-14.5) % Plt Count 653 H (140-440) X 10*3/uL MPV 9.0 L (9.5-12.2) FL Immature Gran # 0.19 H (0.00-0.04) X 10*3/uL Neutrophils # 10.38 H (1.80-7.70) X 10*3/uL Monocytes # 1.11 H (0.20-1.00) X 10*3/uL Eosinophils # 0.43 H (0.04-0.35) X 10*3/uL POC Glucose (mg/dL) 136 H (70-110) mg/dL Assessment and Plan (1) Acute cholecystitis Narrative/Plan: Patient doing well. White blood cell count improved. Continue antibiotics. Recheck labs particularly hemoglobin tomorrow. Will check type and screen tomorrow as well. Hold tube feeds after midnight. Current Visit: Yes Status: Acute Code(s): K81.0 - ACUTE CHOLECYSTITIS SNOMED Code(s): 46008809
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
[2024-02-21 12:06] LABS: Glucose,Whole Blood 152 mg/dL (70-110)
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
[2024-02-21 13:16] LABS: ALT 55 U/L (10-49); AST 25 U/L (14-35); Albumin 2.7 g/dL (3.8-4.9); Alkaline Phosphatase 452 U/L (41-126); Blood Urea Nitrogen 10.8 mg/dL (9.0-27.0); Calcium 8.4 mg/dL (8.7-10.3); Chloride 106 mmol/L (96-109); Glucose 128 mg/dL (70-110); Potassium 4.4 mmol/L (3.5-5.5); Sodium 139 mmol/L (135-145); Total Bilirubin 0.3 mg/dL (0.3-1.2); Total Protein 5.7 g/dL (6.2-8.2)
[2024-02-21 17:11] LABS: Glucose,Whole Blood 129 mg/dL (70-110)
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
[2024-02-22 00:07] LABS: Glucose,Whole Blood 106 mg/dL (70-110)
[2024-02-22] MEDS: MORPHINE SULFATE 4 MG/ML SYRINGE IVP PRN (03:01)
[2024-02-22 05:05] LABS: Anisocytosis Slight; Basophils % (A) 0 %; Eosinophils # (A) 0.6 k/uL (0-0.7); Eosinophils % (A) 5 %; HCT 23.2 % (39.0-53.0); Hypochromasia Marked; Lymphocytes % (A) 18 %; MCH 20.8 pg (25.0-35.0); MCHC 30.1 g/dL (31.0-37.0); MCV 68.9 fL (80.0-100.0); Mean Platelet Volume 6.9; Microcytosis Marked; Monocytes # (A) 0.7 k/uL (0-1.0); Monocytes % (A) 6 %; Neutrophils # (A) 7.7 k/uL (1.3-7.7); Neutrophils % (A) 69 %; Platelet Count 661 k/uL (150-450); Poikilocytosis Slight; RBC 3.37 m/uL (4.30-5.90); RDW 18.9 % (11.5-15.5); WBC 11.1 k/uL (3.8-10.6)
[2024-02-22 05:30] LABS: ALT 47 U/L (4-49); AST 29 U/L (17-59); African American GFR (CKD) >90 (>60 ml/min/1.73 sqM); Albumin 2.3 g/dL (3.5-5.0); Albumin/Globulin Ratio 0.8; Alkaline Phosphatase 438 U/L (38-126); Anion Gap 2 mmol/L; Blood Urea Nitrogen 8 mg/dL (9-20); Calcium 8.1 mg/dL (8.4-10.2); Carbon Dioxide 25 mmol/L (22-30); Chloride 108 mmol/L (98-107); Globulin 2.9 g/dL; Glucose 87 mg/dL (74-99); Non-African American GFR(CKD) >90 (>60 ml/min/1.73 sqM); Sodium 135 mmol/L (137-145); Total Bilirubin 0.4 mg/dL (0.2-1.3); Total Protein 5.2 g/dL (6.3-8.2)
[2024-02-22 05:45] LABS: Glucose,Whole Blood 91 mg/dL (70-110)
[2024-02-22] MEDS: CHOLECALCIFEROL 125 MCG (5000 IU) TABLET PEG/G-TUBE SCH (07:46)
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
[2024-02-22 12:37] LABS: Glucose,Whole Blood 82 mg/dL (70-110)
--- NOTE | 2024-02-22 14:04 | P.HPADDEND ---
H&P Addendum H&P Addendum Date: 02/22/24 Patient sepsis resolved white blood cell count down from over 39,000-11,000. Hemoglobin down to 7.10. Patient got 1 unit of blood. Overall, elevated risk for complication due to pre-existing comorbid conditions.
[2024-02-22] MEDS: IV FLUID CONTINUATION 1,000 ML IV ONE (14:14)
[2024-02-22] MEDS: ONDANSETRON 4 MG/2 ML VIAL IVP PRN (14:37)
[2024-02-22] MEDS: HEPARIN SODIUM,PORCINE 5,000 UNIT/ML 1 ML VIAL SQ STA (16:37)
[2024-02-22] MEDS ORDERED: LIDOCAINE 1% INJ 10MG/ML (20 ML MDV) ONE (16:38)
[2024-02-22] MEDS ORDERED: GLYCOPYRROLATE 0.2 MG/ML 2 ML VIAL ONE (16:38)
[2024-02-22] MEDS ORDERED: WATER FOR INJECTION, STERILE 10 ML VIAL IV ONE (16:38)
[2024-02-22] MEDS ORDERED: MIDAZOLAM 2 MG/2 ML VIAL ONE (16:38)
[2024-02-22] MEDS ORDERED: ROCURONIUM 10 MG/ML (5 ML VIAL) IV ONE (16:38)
[2024-02-22] MEDS ORDERED: HYDROmorphone (PF) 1 MG/ML ONE (16:38)
[2024-02-22] MEDS ORDERED: NEOSTIGMINE 1 MG/ML 10 ML VIAL ONE (16:38)
[2024-02-22] MEDS ORDERED: KETAMINE HCL IN 0.9 % NACL 50 MG/5 ML SYRINGE ONE (16:38)
[2024-02-22] MEDS ORDERED: fentaNYL (PF) 50 MCG/ML 2 ML AMP ONE (16:38)
[2024-02-22] MEDS ORDERED: PROPOFOL 10 MG/ML 20 ML VIAL IV ONE (16:38)
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
[2024-02-22] MEDS: LACTATED RINGERS 1,000 ML IV ONE ×2 (17:15→19:00)
[2024-02-22] MEDS: LIDOCAINE 1%-EPI 1:100,000 20 ML VIAL SQ ONE (17:20)
[2024-02-22 21:17] LABS: HCT 29.8 % (39.0-53.0); MCV 69.4 fL (80.0-100.0); RBC 4.29 m/uL (4.30-5.90); WBC 14.4 k/uL (3.8-10.6)
[2024-02-22 21:18] LABS: Anisocytosis Slight; Hypochromasia Marked; MCH 21.1 pg (25.0-35.0); MCHC 30.5 g/dL (31.0-37.0); Microcytosis Marked; Platelet Count 917 k/uL (150-450); Poikilocytosis Slight; RDW 19.1 % (11.5-15.5)
[2024-02-22 21:26] LABS: HGB 9.1 gm/dL (13.0-17.5)
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
[2024-02-22] MEDS ORDERED: HYDROmorphone 1 MG/ML 1 ML SYRINGE IVP PRN (22:26)
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
[2024-02-23 00:23] LABS: Glucose,Whole Blood 98 mg/dL (70-110)
[2024-02-23] MEDS: ACETAMINOPHEN IV (For NPO) 1,000 MG in EMPTY BAG 1 BAG IVPB SCH (00:36)
[2024-02-23 02:01] LABS: Glucose,Whole Blood 90 mg/dL (70-110)
[2024-02-23] MEDS: INDOCYANINE GREEN 25 MG VIAL IV STA (02:16)
[2024-02-23] MEDS: SODIUM CHLORIDE 0.9% 2,000 ML IV ONE (02:17)
[2024-02-23 06:08] LABS: Glucose,Whole Blood 83 mg/dL (70-110)
[2024-02-23 11:26] LABS: Basophils # (A) 0.07 X 10*3/uL (0.00-0.10); Basophils % (A) 0.5 %; Eosinophils # (A) 0.39 X 10*3/uL (0.04-0.35); Eosinophils % (A) 2.7 %; HCT 28.9 % (39.6-50.0); HGB 8.5 g/dL (13.0-17.0); Lymphocytes # (A) 1.44 X 10*3/uL (0.90-5.00); Lymphocytes % (A) 9.8 %; MCH 20.6 pg (27.0-32.0); MCHC 29.4 g/dL (32.0-37.0); Mean Platelet Volume 8.8 FL (9.5-12.2); Monocytes # (A) 0.98 X 10*3/uL (0.20-1.00); Monocytes % (A) 6.7 %; NRBC Per 100 WBC 0 X 10*3/uL (0.00-0.01); Neutrophils # (A) 11.52 X 10*3/uL (1.80-7.70); Neutrophils % (A) 78.4 %; Platelet Count 920 X 10*3/uL (140-440); RBC 4.13 X 10*6/uL (4.40-5.60); RDW 20.3 % (11.5-14.5); WBC 14.68 X 10*3/uL (4.50-10.00)
[2024-02-23 11:51] LABS: Glucose,Whole Blood 103 mg/dL (70-110)
[2024-02-23 11:56] LABS: ALT 44 U/L (10-49); AST 43 U/L (14-35); Albumin 2.7 g/dL (3.8-4.9); Albumin/Globulin Ratio 1.04 Ratio (1.60-3.17); Alkaline Phosphatase 356 U/L (41-126); BUN/Creat Ratio 9.67 Ratio (12.00-20.00); Blood Urea Nitrogen 8.7 mg/dL (9.0-27.0); Calcium 8.3 mg/dL (8.7-10.3); Chloride 101 mmol/L (96-109); Globulin 2.6 g/dL (1.6-3.3); Glucose 89 mg/dL (70-110); Potassium 4.9 mmol/L (3.5-5.5); Sodium 136 mmol/L (135-145); Total Bilirubin 0.4 mg/dL (0.3-1.2); Total Protein 5.3 g/dL (6.2-8.2)
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
[2024-02-23 13:23] VITALS: BMI 25.4
[2024-02-23 17:15] LABS: Glucose,Whole Blood 112 mg/dL (70-110)
[2024-02-23 20:33] LABS: Glucose,Whole Blood 107 mg/dL (70-110)
[2024-02-24 00:11] LABS: Glucose,Whole Blood 104 mg/dL (70-110)
[2024-02-24 06:30] LABS: Glucose,Whole Blood 142 mg/dL (70-110)
[2024-02-24 07:12] LABS: Anisocytosis Slight; Basophils % (A) 0 %; Eosinophils # (A) 0.4 k/uL (0-0.7); Eosinophils % (A) 3 %; HCT 26.4 % (39.0-53.0); HGB 7.8 gm/dL (13.0-17.5); Hypochromasia Marked; Lymphocytes # (A) 1.4 k/uL (1.0-4.8); Lymphocytes % (A) 10 %; MCH 20.9 pg (25.0-35.0); MCHC 29.5 g/dL (31.0-37.0); MCV 70.8 fL (80.0-100.0); Mean Platelet Volume 6.1; Microcytosis Marked; Monocytes # (A) 0.7 k/uL (0-1.0); Monocytes % (A) 5 %; Neutrophils # (A) 11.1 k/uL (1.3-7.7); Neutrophils % (A) 80 %; Platelet Count 774 k/uL (150-450); Poikilocytosis Slight; RBC 3.73 m/uL (4.30-5.90); RDW 19.8 % (11.5-15.5); WBC 13.9 k/uL (3.8-10.6)
--- NOTE | 2024-02-24 07:13 | P.PN ---
Progress Note - Text Progress Note Date: 02/23/24 Patient doing very well following 4+hr surgery. His pain is improved. He is calmer following surgery and less agitated also per discussion with nursing. JUANITA drain is serosanguinous. Hemoglobin stable 9.1 to 8.5 despite anticipated EBL of 300 mL. Liver enzymes are trending down. Agree with continued hospitalization due to pre-existing co-morbidites. Await body fluid cultures obtained during surgery to guide antibiotics upon discharge as patient presented with overwhelming sepsis.
[2024-02-24 07:34] LABS: African American GFR (CKD) >90 (>60 ml/min/1.73 sqM); Anion Gap 1 mmol/L; Blood Urea Nitrogen 6 mg/dL (9-20); Carbon Dioxide 31 mmol/L (22-30); Chloride 98 mmol/L (98-107); Glucose 122 mg/dL (74-99); Non-African American GFR(CKD) >90 (>60 ml/min/1.73 sqM); Potassium 3.9 mmol/L (3.5-5.1); Sodium 130 mmol/L (137-145)
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
[2024-02-24 11:55] LABS: Glucose,Whole Blood 143 mg/dL (70-110)
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
[2024-02-24 15:38] LABS: Albumin 2.4 g/dL (3.5-5.0); Bilirubin, Delta 0.1 mg/dL (0.0-0.2); Bilirubin,Unconjugated 0.3 mg/dL (0.0-1.1); Total Bilirubin 0.4 mg/dL (0.2-1.3); Total Protein 5.3 g/dL (6.3-8.2)
[2024-02-24 16:14] LABS: Glucose,Whole Blood 143 mg/dL (70-110)
[2024-02-24 23:11] LABS: Glucose,Whole Blood 104 mg/dL (70-110)
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
[2024-02-25 06:11] LABS: Glucose,Whole Blood 126 mg/dL (70-110)
[2024-02-25 08:18] LABS: Anisocytosis Moderate; Basophils % (A) 0 %; Eosinophils # (A) 0.5 k/uL (0-0.7); Eosinophils % (A) 5 %; HCT 25.5 % (39.0-53.0); HGB 7.6 gm/dL (13.0-17.5); Hypochromasia Marked; Lymphocytes # (A) 1.5 k/uL (1.0-4.8); Lymphocytes % (A) 15 %; MCH 21.4 pg (25.0-35.0); MCHC 29.8 g/dL (31.0-37.0); MCV 71.8 fL (80.0-100.0); Mean Platelet Volume 6.5; Microcytosis Marked; Monocytes # (A) 0.5 k/uL (0-1.0); Monocytes % (A) 5 %; Neutrophils % (A) 73 %; Platelet Count 793 k/uL (150-450); Poikilocytosis Slight; RBC 3.55 m/uL (4.30-5.90); RDW 20.2 % (11.5-15.5); WBC 9.7 k/uL (3.8-10.6)
[2024-02-25 08:35] LABS: ALT 31 U/L (4-49); AST 27 U/L (17-59); African American GFR (CKD) >90 (>60 ml/min/1.73 sqM); Albumin 2.4 g/dL (3.5-5.0); Alkaline Phosphatase 262 U/L (38-126); Anion Gap 3 mmol/L; Blood Urea Nitrogen 5 mg/dL (9-20); Carbon Dioxide 32 mmol/L (22-30); Chloride 99 mmol/L (98-107); Glucose 106 mg/dL (74-99); Non-African American GFR(CKD) >90 (>60 ml/min/1.73 sqM); Potassium 4.5 mmol/L (3.5-5.1); Sodium 134 mmol/L (137-145); Total Bilirubin 0.2 mg/dL (0.2-1.3); Total Protein 5.3 g/dL (6.3-8.2)
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
[2024-02-25 11:40] VITALS: BP 142/87; PULSE 99; RESP 16; TEMP 97.2
[2024-02-25 11:55] LABS: Glucose,Whole Blood 124 mg/dL (70-110)
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
== END 2024-02-25 14:02 | DRG 853 ==
LOC: EC 00:20 → 4SSUR 06:05 → 5NMEDONC 21:51 → 3SCARD 02-23 01:10
PROVIDERS: ADMIT Hospitalist; ATTEND Hospitalist
PROC: 0FT44ZZ Resection of Gallbladder, Percutaneous Endoscopic Approach (ICD-10-PCS; 2024-02-22)
PROC: 8E0W4CZ Robotic Assisted Procedure of Trunk Region, Percutaneous Endoscopic Approach (ICD-10-PCS; 2024-02-22)
PROC: 30233N1 Transfusion of Nonautologous Red Blood Cells into Peripheral Vein, Percutaneous Approach (ICD-10-PCS; 2024-02-22)
PROC: 0DNW4ZZ Release Peritoneum, Percutaneous Endoscopic Approach (ICD-10-PCS; principal; 2024-02-22 15:25)
DX: A41.9 Sepsis, unspecified organism (principal); L89.314 Pressure ulcer of right buttock, stage 4; G81.91 Hemiplegia, unspecified affecting right dominant side; N18.4 Chronic kidney disease, stage 4 (severe); K80.42 Calculus of bile duct with acute cholecystitis without obstruction; K82.1 Hydrops of gallbladder; E87.1 Hypo-osmolality and hyponatremia; G40.909 Epilepsy, unspecified, not intractable, without status epilepticus; Z93.1 Gastrostomy status; K82.A1 Gangrene of gallbladder in cholecystitis; D63.8 Anemia in other chronic diseases classified elsewhere; R13.10 Dysphagia, unspecified; F32.A Depression, unspecified; E03.9 Hypothyroidism, unspecified; I13.10 Hypertensive heart and chronic kidney disease without heart failure, with stage 1 through stage 4 chronic kidney disease, or unspecified chronic kidney disease; E86.1 Hypovolemia; F41.1 Generalized anxiety disorder; K66.0 Peritoneal adhesions (postprocedural) (postinfection); K21.9 Gastro-esophageal reflux disease without esophagitis; N31.9 Neuromuscular dysfunction of bladder, unspecified; R09.02 Hypoxemia; Z85.528 Personal history of other malignant neoplasm of kidney; Z90.5 Acquired absence of kidney; Z98.2 Presence of cerebrospinal fluid drainage device; Z74.01 Bed confinement status; Z87.820 Personal history of traumatic brain injury; Z79.82 Long term (current) use of aspirin; Z79.899 Other long term (current) drug therapy; Z86.19 Personal history of other infectious and parasitic diseases
CPT/HCPCS: 71046; 76705; 80048; 80053; 80076; 81001; 83605; 83690; 83735; 85025; 85027; 85610; 86850; 86900; 86901; 86920; 87070; 87075; 87086; 87205; 88304; 93306; 94760; 96365; 96366; 96375; 96376; 99285

== ENCOUNTER 2024-05-04 05:38 | Inpatient (IN) | payer MEDICARE, BC ==
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
[2024-05-04] MEDS: LACTATED RINGERS 1,000 ML IV ONE (06:03)
[2024-05-04] MEDS: MORPHINE SULFATE 4 MG/ML SYRINGE IVP STA (06:06)
[2024-05-04] MEDS: ONDANSETRON 4 MG/2 ML VIAL IVP STA (06:14)
[2024-05-04] MEDS: LACTATED RINGERS 1,000 ML BAG IV STA (06:20)
[2024-05-04] MEDS: ACETAMINOPHEN IV (For NPO) 1,000 MG in EMPTY BAG 1 BAG IVPB STA (06:40)
[2024-05-04 06:41] LABS: Anisocytosis Slight; Basophils # (A) 0.1 k/uL (0-0.2); Basophils % (A) 0 %; Eosinophils # (A) 0.2 k/uL (0-0.7); Eosinophils % (A) 1 %; HCT 40.4 % (39.0-53.0); HGB 12.3 gm/dL (13.0-17.5); Hypochromasia Marked; Lymphocytes # (A) 0.4 k/uL (1.0-4.8); Lymphocytes % (A) 1 %; MCH 22.1 pg (25.0-35.0); MCHC 30.5 g/dL (31.0-37.0); MCV 72.4 fL (80.0-100.0); Mean Platelet Volume 6.8; Microcytosis Moderate; Monocytes # (A) 0.8 k/uL (0-1.0); Monocytes % (A) 2 %; Neutrophils # (A) 37.2 k/uL (1.3-7.7); Neutrophils % (A) 96 %; Platelet Count 648 k/uL (150-450); RBC 5.57 m/uL (4.30-5.90); RDW 16.7 % (11.5-15.5); WBC 38.8 k/uL (3.8-10.6)
[2024-05-04 06:54] LABS: ALT 24 U/L (4-49); AST 24 U/L (17-59); African American GFR (CKD) >90 (>60 ml/min/1.73 sqM); Albumin 4.4 g/dL (3.5-5.0); Alkaline Phosphatase 122 U/L (38-126); Anion Gap 16 mmol/L; Blood Urea Nitrogen 25 mg/dL (9-20); Calcium 9.7 mg/dL (8.4-10.2); Carbon Dioxide 25 mmol/L (22-30); Chloride 98 mmol/L (98-107); Glucose 137 mg/dL (74-99); Non-African American GFR(CKD) 78 (>60 ml/min/1.73 sqM); Potassium 5.7 mmol/L (3.5-5.1); Sodium 139 mmol/L (137-145); Total Bilirubin 0.6 mg/dL (0.2-1.3)
[2024-05-04] MEDS ORDERED: NALOXONE 0.4 MG/ML 1 ML VIAL IV PRN (07:26)
[2024-05-04] MEDS ORDERED: PHENYLEPHRINE 10 MG/ML VIAL ONE (07:29)
[2024-05-04] MEDS ORDERED: HYDROmorphone (PF) 1 MG/ML ONE (07:29)
[2024-05-04] MEDS ORDERED: MIDAZOLAM 2 MG/2 ML VIAL ONE (07:29)
[2024-05-04] MEDS ORDERED: SODIUM BICARB 8.4% 50 ML SYR (1 MEQ/ML) ONE (07:29)
[2024-05-04] MEDS ORDERED: SUGAMMADEX SODIUM 100 MG/ML SYR IV ONE (07:29)
[2024-05-04] MEDS ORDERED: DEXAMETHASONE SOD PHOSPHATE 4 MG/ML 1 ML VIAL ONE (07:29)
[2024-05-04] MEDS ORDERED: fentaNYL (PF) 50 MCG/ML 2 ML AMP ONE (07:29)
[2024-05-04] MEDS ORDERED: PROPOFOL 10 MG/ML 20 ML VIAL IV ONE (07:29)
[2024-05-04] MEDS: SODIUM CHLORIDE 0.9% 1,000 ML IV ONE ×3 (07:29→08:18)
[2024-05-04] MEDS ORDERED: LIDOCAINE 1% INJ 10MG/ML (20 ML MDV) ONE (07:29)
[2024-05-04] MEDS ORDERED: ROCURONIUM 10 MG/ML (5 ML VIAL) IV ONE (07:29)
[2024-05-04 07:31] LABS: Glucose,Whole Blood 141 mg/dL (70-110)
[2024-05-04 07:51] LABS: Anisocytosis Slight; Basophils % (A) 0 %; Eosinophils # (A) 0.1 k/uL (0-0.7); Eosinophils % (A) 0 %; HCT 36.9 % (39.0-53.0); HGB 11.5 gm/dL (13.0-17.5); Hypochromasia Marked; Lymphocytes # (A) 0.4 k/uL (1.0-4.8); Lymphocytes % (A) 1 %; MCH 22.4 pg (25.0-35.0); MCHC 31.2 g/dL (31.0-37.0); MCV 71.8 fL (80.0-100.0); Microcytosis Moderate; Monocytes # (A) 0.9 k/uL (0-1.0); Monocytes % (A) 2 %; Neutrophils # (A) 36.3 k/uL (1.3-7.7); Neutrophils % (A) 96 %; Platelet Count 577 k/uL (150-450); RBC 5.14 m/uL (4.30-5.90); RDW 16.6 % (11.5-15.5); WBC 37.8 k/uL (3.8-10.6)
[2024-05-04 07:59] LABS: ALT 21 U/L (4-49); AST 16 U/L (17-59); African American GFR (CKD) >90 (>60 ml/min/1.73 sqM); Albumin 3.9 g/dL (3.5-5.0); Alkaline Phosphatase 115 U/L (38-126); Anion Gap 13 mmol/L; Blood Urea Nitrogen 24 mg/dL (9-20); Calcium 9.5 mg/dL (8.4-10.2); Carbon Dioxide 26 mmol/L (22-30); Chloride 98 mmol/L (98-107); Glucose 134 mg/dL (74-99); Non-African American GFR(CKD) 78 (>60 ml/min/1.73 sqM); Potassium 5.5 mmol/L (3.5-5.1); Sodium 137 mmol/L (137-145); Total Bilirubin 0.4 mg/dL (0.2-1.3); Total Protein 7.2 g/dL (6.3-8.2)
[2024-05-04] MEDS: ALBUTEROL NEB (CONC) 2.5 MG/0.5 ML INHALATION ONE (08:19)
[2024-05-04 08:32] LABS: Hypochromasia (M) Present; Poikilocytosis (M) Present
[2024-05-04 08:33] LABS: Anisocytosis (M) Present
[2024-05-04 08:34] LABS: Anisocytosis (M) Present; Hypochromasia (M) Present; Poikilocytosis (M) Present
[2024-05-04] MEDS: ALBUTEROL NEBULIZED 2.5 MG/3 ML INHALATION STA (09:04)
[2024-05-04] MEDS: ALBUMIN HUMAN 5% 250 ML in EMPTY BAG 1 BAG IVPB STA (09:16)
[2024-05-04] MEDS ORDERED: ONDANSETRON 4 MG/2 ML VIAL IVP PRN (10:46)
[2024-05-04] MEDS: metroNIDAZOLE-NS PMX 500 MG in SALINE 1 100ML.BAG IVPB STA (14:40)
[2024-05-04 15:06] LABS: African American GFR (CKD) >90 (>60 ml/min/1.73 sqM); Anion Gap 11 mmol/L; Blood Urea Nitrogen 20 mg/dL (9-20); Calcium 8.5 mg/dL (8.4-10.2); Carbon Dioxide 28 mmol/L (22-30); Chloride 102 mmol/L (98-107); Glucose 124 mg/dL (74-99); Non-African American GFR(CKD) 89 (>60 ml/min/1.73 sqM); Potassium 4.6 mmol/L (3.5-5.1); Sodium 141 mmol/L (137-145)
[2024-05-04] MEDS: CALCIUM GLUCONATE IN NACL 1 GM in SALINE 1 100ML.BAG IVPB ONE (15:39)
[2024-05-04] MEDS: DEXTROSE 50% SYRINGE 50 ML IVP ONE (15:39)
[2024-05-04] MEDS: INSULIN REGULAR 100 UNIT/ML VIAL (IV) IV ONE (15:40)
[2024-05-04] MEDS: metroNIDAZOLE-NS PMX 500 MG in SALINE 1 100ML.BAG IVPB SCH (15:45)
[2024-05-04] MEDS: SODIUM CHLORIDE 0.9% 1,000 ML IV SCH (18:37)
[2024-05-04] MEDS: busPIRone HCl 10 MG TAB PEG/G-TUBE SCH (20:04)
[2024-05-04] MEDS: HYDROmorphone 1 MG/ML 1 ML SYRINGE IVP PRN (22:34)
[2024-05-04] MEDS: METOPROLOL TARTRATE 5 MG/5 ML VIAL IVP PRN (22:38)
[2024-05-04] MEDS: ACETAMINOPHEN SUPPOSITORY 650 MG SUPP RECTAL PRN (22:51)
[2024-05-05] MEDS: METOPROLOL TARTRATE 5 MG/5 ML VIAL IVP PRN (05:36)
[2024-05-05 06:26] LABS: Anisocytosis Slight; Basophils % (A) 0 %; Eosinophils # (A) 0.1 k/uL (0-0.7); Eosinophils % (A) 0 %; HCT 34.9 % (39.0-53.0); HGB 10.5 gm/dL (13.0-17.5); Hypochromasia Marked; Lymphocytes # (A) 0.7 k/uL (1.0-4.8); Lymphocytes % (A) 3 %; MCHC 30.2 g/dL (31.0-37.0); MCV 72.8 fL (80.0-100.0); Mean Platelet Volume 6.3; Microcytosis Moderate; Monocytes % (A) 4 %; Neutrophils # (A) 21.6 k/uL (1.3-7.7); Neutrophils % (A) 92 %; Platelet Count 438 k/uL (150-450); RBC 4.79 m/uL (4.30-5.90); RDW 16.6 % (11.5-15.5); WBC 23.6 k/uL (3.8-10.6)
[2024-05-05 06:40] LABS: African American GFR (CKD) >90 (>60 ml/min/1.73 sqM); Anion Gap 7 mmol/L; Blood Urea Nitrogen 15 mg/dL (9-20); Calcium 8.4 mg/dL (8.4-10.2); Carbon Dioxide 28 mmol/L (22-30); Chloride 104 mmol/L (98-107); Glucose 107 mg/dL (74-99); Non-African American GFR(CKD) 86 (>60 ml/min/1.73 sqM); Potassium 4.4 mmol/L (3.5-5.1); Sodium 139 mmol/L (137-145)
[2024-05-05] MEDS: ACETAMINOPHEN IV (For NPO) 1,000 MG in EMPTY BAG 1 BAG IVPB SCH (09:04)
--- NOTE | 2024-05-05 10:15 | P.OP ---
Date of Procedure: 05/04/24 Preoperative Diagnosis: free air Postoperative Diagnosis: free air/free fluid Procedure(s) Performed: exploratory laparotomy with peg tube removal, stomach resection, and g tube placement Anesthesia: LLOYD Surgeon: Tevin Colon Estimated Blood Loss (ml): 15 Pathology: other (stomach) Condition: stable Disposition: PACU Indications for Procedure: peritonitis, free fluid/air Operative Findings: free fluid and malpositioned peg tube Description of Procedure: Patient was brought to the operative suite where he was cleaned and draped in sterile fashion. A timeout was performed and everyone agreed with the information recited. Next a #10 blade was then used to make a midline incision. Electrocautery as then used to dissect down through the peritoneum. Once the abdomen was entered a large amount of non specific fluid was encountered. It was non purulent in nature. The peg tube was dislodged and not in the stomach. This portion of the stomach from the peg tube site was grasped and stapled off using a 30 black load staple. AFter the abdomen was irrigated and suctioned, a purse stitch was placed in another portion of the stomach, an incision was made in the abdominal wall and stomach, a g tube was secured to the abdominal wall with silk suture. The midline incision was closed using pds in a cephalad to caudad, and caudad to cephalad. The skin was closed using noel.
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
--- NOTE | 2024-05-05 10:39 | XR ---
EXAMINATION TYPE: XR chest 2V DATE OF EXAM: 05/05/2024 10:31 AM COMPARISON: Chest x-ray February 18, 2024 CLINICAL INDICATION: Male, 43 years old with history of shortness of breath, TECHNIQUE: Frontal and lateral views of the chest are obtained. FINDINGS: Orogastric tube projects diaphragm. Persistent low lung volumes with prominent central vasc ular congestion and suspected small left pleural effusion. The cardiac silhouette size is stable and upper limits of normal. Overlying right-sided ventricular shunt catheter redemonstrated. The osseous structures are intact. IMPRESSION: Moderate central vascular congestion with small left pleural effusion. Findings suggest f luid overload state. [facility], , 05/05/2024 10:37 AM
--- NOTE | 2024-05-05 11:21 | P.PN ---
Subjective Progress Note Date: 05/05/24 SURGICAL PROGRESS NOTE CHIEF COMPLAINT: Dislodged PEG tube/free air and free fluid on CT HISTORY OF PRESENT ILLNESS: Patient is postop day #1 status post exploratory laparotomy with PEG tube removal, stomach resection and Peg tube placement. Patient has been febrile. Tmax of 102.7. He has been tachycardic. He is on 5 L of oxygen satting at 88%. White count did come down from 37-23.6 hemoglobin 12 down to 10.5. He does report abdominal pain. He is NPO. Patient does take metoprolol at home which she has been unable to take due to his n.p.o. status. Per nursing staff patient recently had pneumonia prior to this admission. Patient seen and examined with Dr. Crawford PHYSICAL EXAM: VITAL SIGNS: Reviewed. GENERAL: Well-developed in no acute distress. ABDOMEN: Soft. Mildly distended. Diffuse tenderness. Incisional dressing clean dry and intact. PEG tube site clean dry and intact. There is some mild ecchymosis distal to the PEG tube site. NEUROLOGIC: Alert and oriented. Cranial nerves II through XII grossly intact. ASSESSMENT: 1. Dislodged PEG tube causing free air and free fluid noted on CAT scan. Patient is status post exploratory laparotomy with PEG tube placement, stomach resection and G-tube placement 2. History of traumatic brain injury PLAN: -Keep patient n.p.o. -No meds and no tube feeds down PEG tube at this time -Consult cardiology regarding tachycardia and cardiac medications. Patient on beta-dilip at home and unable to take oral meds at this time -Had pneumonia prior to this admission. Will check chest x-ray. -IV Tylenol ordered for fever -Continue IV antibiotics -Continue pain management -DVT prophylaxis subcu heparin Physician Women'S Studies Professor note has been reviewed by physician. Signing provider agrees with the documented findings, assessment, and plan of care. Postoperative day #1, exploratory laparotomy repair of gastrotomy and open G- tube placement. Patient with tachycardia overnight, likely rebound tachycardia secondary to beta-blockade being held. Recommend cardiology evaluation. Patient had pneumonia prior to this admission and will check chest x-ray. He has had febrile episodes and we will continue to monitor. Continue with O2 at this time. Secondary to patient's overall mental status, unable to educate patient on importance of abdominal binder and not pulling his new gastric tube. Continue IV antibiotics. Shilpin Crawford, DO I just Objective - Vital Signs Vital signs: Vital Signs Temp 102.7 F H 05/05/24 07:49 Pulse 128 H 05/05/24 07:49 Resp 16 05/05/24 07:49 BP 153/89 05/05/24 07:49 Pulse Ox 88 L 05/05/24 07:49 FiO2 Intake & Output 05/04/24 05/05/24 05/05/24 18:59 06:59 18:59 Intake Total 2600 Output Total 615 Balance 1984 Weight 81.647 kg 87 kg Intake: IV 2600 Output: Gastric Drainage 100 Urine 500 Estimated Blood Loss 15 Other: Voiding Method Indwelling Catheter Indwelling Catheter - Labs CBC & Chem 7: 05/05/24 05:52 05/05/24 05:52 Labs: Abnormal Lab Results - Last 24 Hours (Table) 05/04/24 05/04/24 05/04/24 Range/Units 11:00 14:19 14:40 WBC (3.8-10.6) k/uL Hgb (13.0-17.5) gm/dL Hct (39.0-53.0) % MCV (80.0-100.0) fL MCH (25.0-35.0) pg MCHC (31.0-37.0) g/dL RDW (11.5-15.5) % Neutrophils # (1.3-7.7) k/uL Lymphocytes # (1.0-4.8) k/uL Glucose 124 H (74-99) mg/dL Plasma Lactic Acid Ken 3.3 H* 2.6 H* (0.7-2.0) mmol/L 05/05/24 05/05/24 Range/Units 05:52 05:52 WBC 23.6 H (3.8-10.6) k/uL Hgb 10.5 L (13.0-17.5) gm/dL Hct 34.9 L (39.0-53.0) % MCV 72.8 L (80.0-100.0) fL MCH 22.0 L (25.0-35.0) pg MCHC 30.2 L (31.0-37.0) g/dL RDW 16.6 H (11.5-15.5) % Neutrophils # 21.6 H (1.3-7.7) k/uL Lymphocytes # 0.7 L (1.0-4.8) k/uL Glucose 107 H (74-99) mg/dL Plasma Lactic Acid Ken (0.7-2.0) mmol/L
[2024-05-05] MEDS: CHOLECALCIFEROL 25 MCG (1000 IU) TABLET PEG/G-TUBE SCH (12:23)
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
--- NOTE | 2024-05-05 16:18 | CA ---
Transthoracic Echo Report Name: Yung Borrero Age: 43 Gender: M : 1980 Exam Date: 05/05/2024 10:59 Exam Location: [place] [facility] Ht (in): 68 Wt (lb): 191 Ordering Physician: William Garvin MD ([id number]) Attending/Referring Phys: Virgie GARCIA Prefinish Operator Arianna Harris RDCS Procedure CPT: Indications: tachycardia Cardiac Hx: Technical Quality: Fair Contrast 1: Total Dose (mL): Contrast 2: Total Dose (mL): MEASUREMENTS (Male / Female) Normal Values 2D ECHO LV Diastolic Diameter PLAX 4.0 cm 4.2 - 5.9 / 3.9 - 5.3 cm LV Systolic Diameter PLAX 2.6 cm IVS Diastolic Thickness 1.4 cm 0.6 - 1.0 / 0.6 - 0.9 cm LVPW Diastolic Thickness 1.4 cm 0.6 - 1.0 / 0.6 - 0.9 cm LV Relative Wall Thickness 0.7 RV Internal Dim ED PLAX 3.3 cm LA Systolic Diameter LX 3.1 cm 3.0 - 4.0 / 2.7 - 3.8 cm M-MODE Aortic Root Diameter MM 3.7 cm AV Cusp Separation MM 2.4 cm DOPPLER AV Peak Velocity 104.6 cm/s AV Peak Gradient 4.4 mmHg MV Area PHT 5.1 cm??? Mitral E Point Velocity 67.5 cm/s Mitral A Point Velocity 59.8 cm/s Mitral E to A Ratio 1.1 MV Deceleration Time 147.4 ms FINDINGS Left Ventricle Left ventricular ejection fraction is estimated at 55-60 %. Left ventricular cavity size normal. Moderate concentric left ventricular hypertrophy. Normal left ventricular wall motion. Right Ventricle Moderate right ventricular dilatation. Unable to estimate the right ventricular systolic pressure. Right Atrium Normal right atrial size. No right atrial thrombus or mass seen. Left Atrium Normal left atrial size. No left atrial thrombus or mass present. Mitral Valve Structurally normal mitral valve. Trace to mild mitral regurgitation. No evidence for mitral valve prolapse. No mitral stenosis. Aortic Valve Trileaflet aortic valve. No aortic valve stenosis or regurgitation. Tricuspid Valve Structurally normal tricuspid valve. No tricuspid stenosis, regurgitation or prolapse. Pulmonic Valve Structurally normal pulmonic valve. Trace pulmonic regurgitation. Pericardium No pericardial effusion. Aorta Normal size aortic root and proximal ascending aorta. CONCLUSIONS Left ventricular ejection fraction 55-60% Moderate increased left ventricular wall thickness No mitral regurgitation No tricuspid regurgitation No pericardial effusion Previewed by: Dr. Sj Montiel DO (Electronically Signed) Final Date: 05 May 2024 16:18
[2024-05-05] MEDS: HEPARIN SODIUM,PORCINE 5,000 UNIT/ML 1 ML VIAL SQ SCH (19:46)
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
[2024-05-05] MEDS: Lacosamide IV (ages 17+ yrs) 200 MG/20 ML ML IVP STA (23:59)
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
[2024-05-06 07:11] LABS: Anisocytosis Slight; Basophils % (A) 0 %; Eosinophils # (A) 0.3 k/uL (0-0.7); Eosinophils % (A) 2 %; HCT 32.5 % (39.0-53.0); HGB 9.9 gm/dL (13.0-17.5); Hypochromasia Marked; Lymphocytes # (A) 1.1 k/uL (1.0-4.8); Lymphocytes % (A) 6 %; MCH 22.5 pg (25.0-35.0); MCHC 30.4 g/dL (31.0-37.0); MCV 74.1 fL (80.0-100.0); Mean Platelet Volume 6.9; Microcytosis Moderate; Monocytes # (A) 0.5 k/uL (0-1.0); Monocytes % (A) 3 %; Neutrophils # (A) 15.1 k/uL (1.3-7.7); Neutrophils % (A) 88 %; Platelet Count 401 k/uL (150-450); RBC 4.39 m/uL (4.30-5.90); RDW 16.6 % (11.5-15.5); WBC 17.2 k/uL (3.8-10.6)
[2024-05-06 07:35] LABS: African American GFR (CKD) >90 (>60 ml/min/1.73 sqM); Anion Gap 9 mmol/L; Blood Urea Nitrogen 15 mg/dL (9-20); Calcium 7.5 mg/dL (8.4-10.2); Carbon Dioxide 23 mmol/L (22-30); Chloride 93 mmol/L (98-107); Glucose 79 mg/dL (74-99); Non-African American GFR(CKD) >90 (>60 ml/min/1.73 sqM); Potassium 3.6 mmol/L (3.5-5.1); Sodium 125 mmol/L (137-145)
[2024-05-06] MEDS: Lacosamide IV (ages 17+ yrs) 200 MG/20 ML ML IVP SCH (07:58)
[2024-05-06] MEDS: FLUCONAZOLE IN NACL,ISO-OSM 200 MG in SALINE 1 100ML.BAG IVPB SCH (11:30)
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
[2024-05-06] MEDS: ACETAMINOPHEN IV (For NPO) 1,000 MG in EMPTY BAG 1 BAG IVPB SCH (12:47)
--- NOTE | 2024-05-06 13:07 | P.PN ---
Subjective Progress Note Date: 05/06/24 SURGICAL PROGRESS NOTE CHIEF COMPLAINT: Dislodged PEG tube/free air and free fluid on CT HISTORY OF PRESENT ILLNESS: Patient is postop day #2 status post exploratory laparotomy with PEG tube removal, stomach resection and Peg tube placement. Patient's fevers have improved. He does report abdominal pain but does state that it is better than yesterday. Denies any nausea. NG tube 300. Discussed with nursing staff no bowel activity. Chest x-ray had showed evidence of fluid overload and IV fluids were decreased. Heart rate is improved. White count is down from 23-17. Hemoglobin 10.5 down to 9.9. Sodium 125. Antibiotics adjusted per ID service. PHYSICAL EXAM: VITAL SIGNS: Reviewed. GENERAL: Well-developed in no acute distress. ABDOMEN: Soft. distended. Diffuse tenderness. Incisional dressing clean dry and intact. PEG tube site clean dry and intact. NEUROLOGIC: Awake and alert ASSESSMENT: 1. Dislodged PEG tube causing free air and free fluid noted on CAT scan. Patient is status post exploratory laparotomy with PEG tube placement, stomach resection and G-tube placement 2. Peritonitis 3. History of traumatic brain injury 4. History of recent pneumonia PLAN: -Keep patient n.p.o. -No meds and no tube feeds down PEG tube at this time -Continue IV antibiotics per ID service -Continue pain management. IV Tylenol added -Hyponatremia management per medicine service -DVT prophylaxis subcu heparin Physician [employer] note has been reviewed by physician. Signing provider agrees with the documented findings, assessment, and plan of care. Objective - Vital Signs Vital signs: Vital Signs Temp 99.4 F 05/06/24 07:45 Pulse 99 05/06/24 07:45 Resp 18 05/06/24 07:45 BP 154/94 05/06/24 07:45 Pulse Ox 91 L 05/06/24 07:45 FiO2 Intake & Output 05/05/24 05/06/24 05/06/24 18:59 06:59 18:59 Intake Total 270 30 10 Output Total 1200 Balance -930 30 10 Weight 87 kg 84.5 kg Intake: IV 20 30 10 Invasive Line 1 20 30 10 Intake, IV Titration 250 Amount ACETAMINOPHEN IV (For NPO 100 ) 1,000 mg In Empty Bag 1 bag @ 400 mls/hr IVPB Q6H [facility] Rx#:[id number] cefTRIAXone 1 gm In 50 Sodium Chloride 0.9% 50 ml @ 100 mls/hr IVPB Q24HR [facility] Rx#:[id number] metroNIDAZOLE-NS PMX 500 100 mg In Saline 1 100ml.bag @ 100 mls/hr IVPB Q8HR [facility] Rx#:[id number] Oral 0 Output: Urine 1200 Other: Voiding Method Indwelling Catheter Indwelling Catheter Indwelling Catheter # Bowel Movements 0 - Labs CBC & Chem 7: 05/06/24 06:30 05/06/24 06:30 Labs: Abnormal Lab Results - Last 24 Hours (Table) 05/06/24 05/06/24 Range/Units 06:30 06:30 WBC 17.2 H (3.8-10.6) k/uL Hgb 9.9 L (13.0-17.5) gm/dL Hct 32.5 L (39.0-53.0) % MCV 74.1 L (80.0-100.0) fL MCH 22.5 L (25.0-35.0) pg MCHC 30.4 L (31.0-37.0) g/dL RDW 16.6 H (11.5-15.5) % Neutrophils # 15.1 H (1.3-7.7) k/uL Sodium 125 L (137-145) mmol/L Chloride 93 L (98-107) mmol/L Calcium 7.5 L (8.4-10.2) mg/dL Microbiology - Last 24 Hours (Table) 05/04/24 06:09 Blood Culture - Preliminary Blood
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
[2024-05-06] MEDS: METOPROLOL TARTRATE 25 MG TAB PO SCH (20:42)
[2024-05-06] MEDS: lamoTRIgine 100 MG TAB PEG/G-TUBE SCH (20:42)
[2024-05-06] MEDS: OXcarbazepine 300MG/5ML SUSP 15,000 MG/250 ML BOTTLE PEG/G-TUBE SCH (20:42)
[2024-05-07] MEDS: lamoTRIgine 25 MG TAB PEG/G-TUBE SCH (05:26)
[2024-05-07 07:49] LABS: Anisocytosis Slight; Basophils % (A) 0 %; Eosinophils # (A) 0.5 k/uL (0-0.7); Eosinophils % (A) 5 %; HCT 30.7 % (39.0-53.0); Hypochromasia Marked; Lymphocytes # (A) 1.1 k/uL (1.0-4.8); Lymphocytes % (A) 10 %; MCHC 29.4 g/dL (31.0-37.0); MCV 74.9 fL (80.0-100.0); Mean Platelet Volume 6.7; Microcytosis Slight; Monocytes # (A) 0.3 k/uL (0-1.0); Monocytes % (A) 3 %; Neutrophils % (A) 81 %; Platelet Count 443 k/uL (150-450); RDW 16.6 % (11.5-15.5); WBC 11.1 k/uL (3.8-10.6)
[2024-05-07 08:05] LABS: African American GFR (CKD) >90 (>60 ml/min/1.73 sqM); Anion Gap 10 mmol/L; Blood Urea Nitrogen 17 mg/dL (9-20); Calcium 8.4 mg/dL (8.4-10.2); Carbon Dioxide 23 mmol/L (22-30); Chloride 106 mmol/L (98-107); Glucose 82 mg/dL (74-99); Non-African American GFR(CKD) >90 (>60 ml/min/1.73 sqM); Potassium 4.1 mmol/L (3.5-5.1); Sodium 139 mmol/L (137-145)
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
[2024-05-07] MEDS: NYSTATIN 100,000 UNIT/GM POWD 15 GM TOPICAL SCH (20:09)
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
[2024-05-08 11:05] LABS: Anisocytosis Slight; Basophils # (A) 0.1 k/uL (0-0.2); Basophils % (A) 1 %; Eosinophils # (A) 0.6 k/uL (0-0.7); Eosinophils % (A) 7 %; HCT 30.4 % (39.0-53.0); HGB 9.1 gm/dL (13.0-17.5); Hypochromasia Marked; Lymphocytes # (A) 1.3 k/uL (1.0-4.8); Lymphocytes % (A) 16 %; MCHC 29.8 g/dL (31.0-37.0); Mean Platelet Volume 7.1; Microcytosis Moderate; Monocytes # (A) 0.5 k/uL (0-1.0); Monocytes % (A) 6 %; Neutrophils # (A) 5.7 k/uL (1.3-7.7); Neutrophils % (A) 69 %; Platelet Count 459 k/uL (150-450); RBC 4.11 m/uL (4.30-5.90); RDW 16.6 % (11.5-15.5); WBC 8.2 k/uL (3.8-10.6)
[2024-05-08 11:34] LABS: African American GFR (CKD) >90 (>60 ml/min/1.73 sqM); Anion Gap 8 mmol/L; Blood Urea Nitrogen 16 mg/dL (9-20); Calcium 8.5 mg/dL (8.4-10.2); Carbon Dioxide 27 mmol/L (22-30); Chloride 106 mmol/L (98-107); Glucose 80 mg/dL (74-99); Non-African American GFR(CKD) >90 (>60 ml/min/1.73 sqM); Sodium 141 mmol/L (137-145)
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
[2024-05-09 06:19] LABS: Anisocytosis Slight; Basophils % (A) 0 %; Eosinophils # (A) 0.7 k/uL (0-0.7); Eosinophils % (A) 8 %; HCT 29.7 % (39.0-53.0); Hypochromasia Marked; Lymphocytes # (A) 1.4 k/uL (1.0-4.8); Lymphocytes % (A) 16 %; MCH 22.2 pg (25.0-35.0); MCHC 30.2 g/dL (31.0-37.0); MCV 73.6 fL (80.0-100.0); Mean Platelet Volume 6.6; Microcytosis Moderate; Monocytes # (A) 0.4 k/uL (0-1.0); Monocytes % (A) 5 %; Neutrophils # (A) 5.7 k/uL (1.3-7.7); Neutrophils % (A) 68 %; Platelet Count 445 k/uL (150-450); RBC 4.04 m/uL (4.30-5.90); RDW 16.4 % (11.5-15.5); WBC 8.4 k/uL (3.8-10.6)
[2024-05-09 06:42] LABS: ALT 13 U/L (4-49); AST 14 U/L (17-59); African American GFR (CKD) >90 (>60 ml/min/1.73 sqM); Albumin 2.9 g/dL (3.5-5.0); Alkaline Phosphatase 92 U/L (38-126); Anion Gap 7 mmol/L; Blood Urea Nitrogen 13 mg/dL (9-20); Carbon Dioxide 30 mmol/L (22-30); Chloride 104 mmol/L (98-107); Glucose 119 mg/dL (74-99); Non-African American GFR(CKD) >90 (>60 ml/min/1.73 sqM); Potassium 3.6 mmol/L (3.5-5.1); Sodium 141 mmol/L (137-145); Total Bilirubin 0.4 mg/dL (0.2-1.3); Total Protein 5.8 g/dL (6.3-8.2)
[2024-05-09 10:39] VITALS: BMI 28.3
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
[2024-05-09] MEDS ORDERED: ACETAMINOPHEN TAB 325 MG TAB PO PRN (13:41)
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
[2024-05-10 11:45] VITALS: PULSE 93; RESP 18; TEMP 98
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
--- NOTE | 2024-05-10 12:19 | P.DS ---
Providers Date of admission: 05/04/24 07:26 Expected date of discharge: 05/10/24 Attending physician: Tevin Colon DO Consults: 05/04/24 10:42 Consult Physician Routine Consulting Provider: Tex Sheridan Consult Reason/Comments: medical management Do you want consulting provider notified?: Yes 05/05/24 11:09 Consult Physician Routine Consulting Provider: Keily Archer Consult Reason/Comments: Seizures, medication recomendation Do you want consulting provider notified?: Yes 05/05/24 11:13 Consult Physician Routine Consulting Provider: Ad Brown Consult Reason/Comments: Sepsis, bowel infection Do you want consulting provider notified?: Yes Primary care physician: Naresh Villanueva Hospital Course: Discharge diagnosis 1. Dislodged PEG tube causing free air and free fluid noted on CAT scan. Patient is status post exploratory laparotomy with PEG tube placement, stomach resection and G-tube placement 2. Peritonitis 3. History of traumatic brain injury 4. History of recent pneumonia Hospital course This is a 43 old male with a history of traumatic brain injury that presented to the hospital due to dislodged PEG tube. He had a CT scan completed at outside facility that demonstrated free air and fluid. Patient is status post exploratory laparotomy with PEG tube removal, stomach resection and peg tube placement. Patient is tolerating tube feeds. Tube feeds are at goal. He is having bowel movements. Pain is controlled. Afebrile. White count normalized. Patient stable for discharge. Patient has been cleared by consultants for discharge. Patient will be discharged with oral antibiotics. Please refer to chart for any further details. Physician Exercise Physiology Professor note has been reviewed by physician. Signing provider agrees with the documented findings, assessment, and plan of care. Attestation Patient seen and examined at bedside. Presented with chief complaint of abdominal pain and dislodged PEG tube status post exploratory laparotomy with g astric tube placement and closure of gastrotomy. Patient has improved throughout his admission. He is tolerating tube feeds. Tube feeds are at goal and he is having bowel movements at this time. Pain is controlled. Surgically stable for discharge with oral antibiotics per infectious disease. Marie Crawford DO Patient Condition at Discharge: Stable Plan - Discharge Summary Discharge Rx Participant: No New Discharge Prescriptions: New Fluconazole [Diflucan] 100 mg PEG/G-TUBE DAILY 7 Days #7 tablet metroNIDAZOLE [Flagyl] 500 mg PEG/G-TUBE TID 7 Days #21 tab Nystatin 100,000 Unit/gm Powd [Mycostatin Powder] 1 applic TOPICAL BID each cefuroxime axetiL [Ceftin] 500 mg PEG/G-TUBE BID 7 Days #14 tab Continue OXcarbazepine 300MG/5ML SUSP [Trileptal Liquid] 240 mg PEG/G-TUBE TID@0500,1300,2100 busPIRone HCL 10 mg PEG/G-TUBE BID@1300,2100 lamoTRIgine [LaMICtal] 100 mg PEG/G-TUBE TID@0500,1300,2099 Levothyroxine Sodium [Synthroid] 50 mcg PEG/G-TUBE DAILY@0500 bisacodyL [Dulcolax] 10 mg RECTAL Q72H PRN PRN Reason: Constipation Acetaminophen Tab [Tylenol] 650 mg PEG/G-TUBE Q4H PRN PRN Reason: Fever And/ Or Pain Total [place] Swirl 15 ml PEG/G-TUBE DAILY@1300 Cholecalciferol [Vitamin D3 (25 Mcg = 1000 Iu)] 25 mcg PEG/G-TUBE DAILY@1300 Immutol Health 2 cap PEG/G-TUBE DAILY@1300 Aspirin 81 mg PEG/G-TUBE DAILY@1300 polyethylene glycoL 3350 [Miralax] 17 gm PEG/G-TUBE HS@2100 lamoTRIgine [LaMICtal] 50 mg PEG/G-TUBE DAILY@0500 Tamsulosin HCl [Flomax] 0.4 mg PEG/G-TUBE DAILY@1300 Ibuprofen [Motrin] 400 mg PEG/G-TUBE Q6H PRN PRN Reason: Pain Liquacal Supplement 30 ml PEG/G-TUBE BID@1300,2100 Metoprolol Tartrate [Lopressor] 25 mg PEG/G-TUBE BID@0500,1300 Lactulose [Cephulac] 20 gm PEG/G-TUBE BID@0500,1300 Doterra Essential Oil 1 applic TOPICAL TID@0500,1300,2099 Liquid Health Complete 30 ml PEG/G-TUBE DAILY@1300 guaiFENesin [guaiFENesin Oral Solution] 200 mg PEG/G-TUBE Q4H PRN PRN Reason: Cough Discharge Medication List OXcarbazepine 300MG/5ML SUSP [Trileptal Liquid] 240 mg PEG/G-TUBE TID@0500,1300,2100 03/08/14 [History] busPIRone HCL 10 mg PEG/G-TUBE BID@1300,209912/01/21 [History] Tamsulosin HCl [Flomax] 0.4 mg PEG/G-TUBE DAILY@129904/20/23 [History] lamoTRIgine [LaMICtal] 50 mg PEG/G-TUBE DAILY@05004/20/23 [History] lamoTRIgine [LaMICtal] 100 mg PEG/G-TUBE TID@0500,1300,209904/20/23 [History] polyethylene glycoL 3350 [Miralax] 17 gm PEG/G-TUBE HS@209904/20/23 [History] Ibuprofen [Motrin] 400 mg PEG/G-TUBE Q6H PRN 05/01/23 [History] Levothyroxine Sodium [Synthroid] 50 mcg PEG/G-TUBE DAILY@05009/14/23 [History] Liquacal Supplement 30 ml PEG/G-TUBE BID@1299,209910/12/23 [History] Acetaminophen Tab [Tylenol] 650 mg PEG/G-TUBE Q4H PRN 02/18/24 [History] Lactulose [Cephulac] 20 gm PEG/G-TUBE BID@0500,129902/18/24 [History] Metoprolol Tartrate [Lopressor] 25 mg PEG/G-TUBE BID@0500,129902/18/24 [History] bisacodyL [Dulcolax] 10 mg RECTAL Q72H PRN 02/18/24 [History] Aspirin 81 mg PEG/G-TUBE DAILY@129905/04/24 [History] Cholecalciferol [Vitamin D3 (25 Mcg = 1000 Iu)] 25 mcg PEG/G-TUBE DAILY@129905/04/24 [History] Doterra Essential Oil 1 applic TOPICAL TID@0500,1299,209905/04/24 [History] Immutol Health 2 cap PEG/G-TUBE DAILY@129905/04/24 [History] Liquid Health Complete 30 ml PEG/G-TUBE DAILY@129905/04/24 [History] Total [place] Swirl 15 ml PEG/G-TUBE DAILY@129905/04/24 [History] guaiFENesin [guaiFENesin Oral Solution] 200 mg PEG/G-TUBE Q4H PRN 05/04/24 [History] Fluconazole [Diflucan] 100 mg PEG/G-TUBE DAILY 7 Days #7 tablet 05/09/24 [Rx] Nystatin 100,000 Unit/gm Powd [Mycostatin Powder] 1 applic TOPICAL BID each 05/09/24 [Rx] cefuroxime axetiL [Ceftin] 500 mg PEG/G-TUBE BID 7 Days #14 tab 05/09/24 [Rx] metroNIDAZOLE [Flagyl] 500 mg PEG/G-TUBE TID 7 Days #21 tab 05/09/24 [Rx] Follow up Appointment(s)/Referral(s): Tevin Colon DO [Doctor of Osteopathic Medicine] - 1 Week Naresh Villanueva MD [Primary Care Provider] - 1-2 days Ad Brown MD [STAFF PHYSICIAN] - 1 Week Ambulatory/Diagnostic Orders: Basic Metabolic Panel [LAB.AMB] Time Frame: 4 Days, Location: None Selected Complete Blood Count w/diff [LAB.AMB] Location: None Selected Magnesium [LAB.AMB] Location: None Selected Activity/Diet/Wound Care/Special Instructions: Continue same home tube feeding regimen on discharge Continue antibiotics with Ceftin 500 mg twice daily, metronidazole 500 mg 3 times a day, Diflucan 100 mg daily for the next 7 days 

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
[2024-05-10 16:21] VITALS: BP 136/93
== END 2024-05-10 18:15 | DRG 326 ==
LOC: EC 05:38 → 3SCARD 07:26
PROVIDERS: ADMIT Surgery; ATTEND Surgery
PROC: 0DB60ZZ Excision of Stomach, Open Approach (ICD-10-PCS; principal; 2024-05-05)
PROC: 0DP60UZ Removal of Feeding Device from Stomach, Open Approach (ICD-10-PCS; 2024-05-05)
PROC: 0DH60UZ Insertion of Feeding Device into Stomach, Open Approach (ICD-10-PCS; 2024-05-05)
PROC: 3E0G76Z Introduction of Nutritional Substance into Upper GI, Via Natural or Artificial Opening (ICD-10-PCS; 2024-05-05)
DX: K94.23 Gastrostomy malfunction (principal); A41.9 Sepsis, unspecified organism; L89.314 Pressure ulcer of right buttock, stage 4; K65.9 Peritonitis, unspecified; K63.1 Perforation of intestine (nontraumatic); G81.91 Hemiplegia, unspecified affecting right dominant side; S06.9XAA Unspecified intracranial injury with loss of consciousness status unknown, initial encounter; E87.1 Hypo-osmolality and hyponatremia; R47.01 Aphasia; N18.4 Chronic kidney disease, stage 4 (severe); E03.9 Hypothyroidism, unspecified; F32.A Depression, unspecified; I12.9 Hypertensive chronic kidney disease with stage 1 through stage 4 chronic kidney disease, or unspecified chronic kidney disease; G40.909 Epilepsy, unspecified, not intractable, without status epilepticus; R13.10 Dysphagia, unspecified; W34.00XA Accidental discharge from unspecified firearms or gun, initial encounter; E55.9 Vitamin D deficiency, unspecified; E87.70 Fluid overload, unspecified; F41.9 Anxiety disorder, unspecified; I44.4 Left anterior fascicular block; Z79.82 Long term (current) use of aspirin; Z79.899 Other long term (current) drug therapy; Z82.49 Family history of ischemic heart disease and other diseases of the circulatory system; Z87.01 Personal history of pneumonia (recurrent); Z85.528 Personal history of other malignant neoplasm of kidney; Z87.440 Personal history of urinary (tract) infections; Z87.442 Personal history of urinary calculi; Z87.820 Personal history of traumatic brain injury; Z90.49 Acquired absence of other specified parts of digestive tract; Z87.828 Personal history of other (healed) physical injury and trauma; Z90.5 Acquired absence of kidney; Z98.2 Presence of cerebrospinal fluid drainage device; Z88.8 Allergy status to other drugs, medicaments and biological substances
CPT/HCPCS: 36415; 71045; 71046; 80048; 80053; 83605; 85025; 86850; 86900; 86901; 87040; 88307; 93306; 96374; 96375; 99291

== ENCOUNTER 2024-06-16 17:04 | Inpatient (IN) | payer MEDICARE, BC ==
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
[2024-06-16] MEDS ORDERED: ONDANSETRON 4 MG/2 ML VIAL IVP PRN (18:03)
[2024-06-16] MEDS ORDERED: MAG HYDROX/AL HYDROX/SIMETH 30 ML CUP PO PRN (18:03)
[2024-06-16] MEDS ORDERED: NALOXONE 0.4 MG/ML 1 ML VIAL IV PRN (18:03)
[2024-06-16] MEDS ORDERED: LORazepam 2 MG/ML INJ IM STA (18:49)
[2024-06-16] MEDS: LORazepam 1 MG TAB PO STA (18:51)
[2024-06-16] MEDS: LORazepam 1 MG/0.5 ML VIAL IM STA (19:27)
[2024-06-16] MEDS: LORazepam 2 MG/ML INJ IM STA (19:29)
[2024-06-16 19:34] LABS: Anisocytosis Slight; Basophils # (A) 0.1 k/uL (0-0.2); Basophils % (A) 0 %; Eosinophils # (A) 0.6 k/uL (0-0.7); Eosinophils % (A) 6 %; HCT 33.3 % (39.0-53.0); HGB 9.8 gm/dL (13.0-17.5); Hypochromasia Marked; Lymphocytes # (A) 2.5 k/uL (1.0-4.8); Lymphocytes % (A) 24 %; MCH 21.4 pg (25.0-35.0); MCHC 29.5 g/dL (31.0-37.0); MCV 72.4 fL (80.0-100.0); Mean Platelet Volume 6.3; Microcytosis Moderate; Monocytes # (A) 0.7 k/uL (0-1.0); Monocytes % (A) 7 %; Neutrophils # (A) 6.4 k/uL (1.3-7.7); Neutrophils % (A) 60 %; Platelet Count 501 k/uL (150-450); RDW 17.6 % (11.5-15.5); WBC 10.6 k/uL (3.8-10.6)
[2024-06-16 20:00] LABS: ALT 20 U/L (4-49); AST 21 U/L (17-59); African American GFR (CKD) >90 (>60 ml/min/1.73 sqM); Albumin 3.7 g/dL (3.5-5.0); Alkaline Phosphatase 159 U/L (38-126); Anion Gap 9 mmol/L; Blood Urea Nitrogen 19 mg/dL (9-20); Calcium 8.8 mg/dL (8.4-10.2); Carbon Dioxide 29 mmol/L (22-30); Chloride 93 mmol/L (98-107); Glucose 88 mg/dL (74-99); Non-African American GFR(CKD) >90 (>60 ml/min/1.73 sqM); Potassium 4.8 mmol/L (3.5-5.1); Sodium 131 mmol/L (137-145); Total Bilirubin 0.3 mg/dL (0.2-1.3); Total Protein 7.5 g/dL (6.3-8.2)
[2024-06-16] MEDS: SODIUM CHLORIDE 0.9% 1,000 ML IV SCH (22:25)
[2024-06-17] MEDS: PANTOPRAZOLE 40 MG/10 ML VIAL IV SCH (07:59)
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
[2024-06-17] MEDS ORDERED: LIDOCAINE 1% INJ 10MG/ML (20 ML MDV) ONE (13:00)
[2024-06-17] MEDS ORDERED: PROPOFOL 10 MG/ML 20 ML VIAL IV ONE (13:00)
[2024-06-17] MEDS ORDERED: fentaNYL (PF) 50 MCG/ML 2 ML AMP ONE (13:00)
[2024-06-17] MEDS: IV FLUID CONTINUATION 1,000 ML IV ONE (13:07)
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
[2024-06-17 13:49] VITALS: BP 124/82; PULSE 79; RESP 18; TEMP 97.4
--- NOTE | 2024-06-17 17:30 | P.OP ---
Date of Procedure: 06/17/24 Preoperative Diagnosis: Dislodged Gastrostomy Tube Postoperative Diagnosis: Dislodged Gastrostomy Tube Procedure(s) Performed: EGD with PEG Tube Insertion Anesthesia: MAC Surgeon: Jayant Borges Pathology: none sent Condition: stable Disposition: PACU Description of Procedure: The patient was brought to the endoscopy suite. A timeout was performed. Anesthesia was given. The Abdomen was prepped and draped. A bite block was placed, and the endoscope was passed into the oropharynx and into the esophagus. We then passed the GE junction and entered the stomach. We continued the endoscopy out to the first portion of the duodenum. There were no ulcers present. A retroflexed view of the GE junction revealed no hiatal hernia. The light from the endoscope was readily visible through the patient's anterior abdominal wall, 2 cm inferior to the left costal margin. This transilluminated quite easily. We used a local needle to infiltrate the skin over the proposed PEG site first. A small stab incision was then made, and the introducer needle was then placed while aspirating into the gastric lumen. No air, succus or stool was noted prior to visualizing the tip of the needle in the gastric lumen. The guidewire was then placed through the introducer needle. This was grasped and was withdrawn through the patient's mouth. This was then attached to a Ponsky PEG tube, which was then pulled in an antegrade manner into the stomach and out the anterior abdominal wall. The esophagus was reentered better with the gastroscope, and this was advanced into the stomach. The bumper was noted to be flush with the gastric musoca. The tube was secured at this depth, then cut to size, and placed to gravity drainage. The stomach was then desufflated, and the endoscope was then withdrawn along the length of the esophagus. The patient tolerated the procedure well and was sent to the PACU in stable condition.
== END 2024-06-17 16:08 | DRG 394 ==
LOC: EC 17:04 → 4SSUR 18:06
PROVIDERS: ADMIT Hospitalist; ATTEND Hospitalist
PROC: 0DH63UZ Insertion of Feeding Device into Stomach, Percutaneous Approach (ICD-10-PCS; principal; 2024-06-17 07:30)
DX: Z43.1 Encounter for attention to gastrostomy (principal); G81.91 Hemiplegia, unspecified affecting right dominant side; N18.4 Chronic kidney disease, stage 4 (severe); I12.9 Hypertensive chronic kidney disease with stage 1 through stage 4 chronic kidney disease, or unspecified chronic kidney disease; E03.9 Hypothyroidism, unspecified; D75.838 Other thrombocytosis; K21.9 Gastro-esophageal reflux disease without esophagitis; Z87.820 Personal history of traumatic brain injury; Z85.528 Personal history of other malignant neoplasm of kidney; Z98.2 Presence of cerebrospinal fluid drainage device; Z79.899 Other long term (current) drug therapy; Z79.82 Long term (current) use of aspirin; Z79.890 Hormone replacement therapy
CPT/HCPCS: 43246; 80053; 85025; 96372; 99285